=== PATIENT | male | born 1975 | race Caucasian/White ===

== ENCOUNTER 2019-05-09 15:37 | Outpatient (CLI) | payer OTHER, SELFPAY ==
--- NOTE | 2019-05-09 15:30 | CT_ITS ---
WS: [id number] CT CHEST WITH INTRAVENOUS CONTRAST HISTORY: hx lung cancer TECHNIQUE: Contiguous 5 mm axial imaging performed on the thorax. Coronal and sagittal reformats are submitted. All CT scans at [facility] use at least one of these dose optimization techniq ues: automated exposure control; mA and/or kV adjustment per patient size (includes targeted exams wh ere dose is matched to clinical indication); or iterative reconstruction. CONTRAST: Omnipaque 300; 95 mL IV. DLP: 933.06 mGycm COMPARISON: 01/02/2018 and 04/16/2015 Lungs and central airway: Partial lobectomy RIGHT lower lobe. Chronic postsurgical scarring and nodul es. There are several nodules at the RIGHT lung base which are all stable. The largest measures 8 mm. There are no new nodules. Pleura: Normal. No pleural effusion. Heart and pericardium: Normal size heart. No pericardial effusion. Mediastinum and merced: Small benign appearing mediastinal and subcarinal lymph nodes. No increase in s ize and number of the lymph nodes in the mediastinum. Vessels: Normal size aortic and pulmonary artery. No coronary artery calcifications. Chest wall and lower neck: No soft tissue masses. Upper abdomen: Negative. Osseous structures: Mild thoracic spondylitic changes. No osseous destruction. CT/CT chest w con* [id number] IMPRESSION: 1. Status post partial RIGHT lower lobectomy. 2. Stable nodules and postsurgical changes at the RIGHT lung base. No new or i ncreasing size of nodules. Stable since 04/16/2015. 3. No adenopathy.
--- NOTE | 2019-05-09 15:44 | XR_ITS ---
WS: [id number] CHEST 2 VIEWS HISTORY: hx lung cancer COMPARISON: 11/23/2017 Lungs: Postsurgical changes at the RIGHT lung base with volume loss and pleural thickening. Nodules s een on the recent CT are not as readily apparent radiographically. No mass or pneumonia. LEFT lung is clear. Cardiac size: Normal. Mediastinum/Aorta: Normal mediastinum. Bones: Severe degenerative changes at the RIGHT AC joint. XR/XR chest 2V* [id number] IMPRESSION: 1. Stable postoperative pleural thickening and volume loss at the RIGHT lung b ase. 2. No pneumonia. 3. Severe AC joint arthritis.
--- NOTE | 2019-05-09 15:44 | XR_ITS ---
WS: [id number] LEFT SHOULDER: 2 VIEW(S) TECHNIQUE: Internal and external rotation. HISTORY: shoulder pain COMPARISON: None available. No fracture or dislocation or soft tissue abnormality. Mild narrowing of the AC joint. Visualized LEFT upper lung is clear. XR/XR shoulder LT min 2V* [id number] IMPRESSION: Mild AC joint arthritis.
[2019-05-09] MEDS: iohexol 300 mg/mL 100 mL Btl IV (15:53)
== END 2019-05-09 15:38 | disposition home or self-care (01) ==
LOC: RADWPI 15:40
PROVIDERS: PCP Nurse Practitioner Family; Visit Provider Nurse Practitioner Family
DX: M25.512 Pain in left shoulder (principal); M19.012 Primary osteoarthritis, left shoulder; R06.00 Dyspnea, unspecified; R91.8 Other nonspecific abnormal finding of lung field; S46.912A Strain of unspecified muscle, fascia and tendon at shoulder and upper arm level, left arm, initial encounter; X58.XXXA Exposure to other specified factors, initial encounter; Z85.118 Personal history of other malignant neoplasm of bronchus and lung
CPT/HCPCS: 71046; 71260; 73030; Q9967

== ENCOUNTER 2019-06-11 10:22 | Outpatient (CLI) | payer OTHER, SELFPAY ==
--- NOTE | 2019-06-11 10:32 | MR_ITS ---
WS: [id number] MRI LEFT SHOULDER HISTORY: shoulder strain COMPARISON: LEFT shoulder radiograph 05/09/2019 TECHNIQUE: Multiplanar sequences of the shoulder joint are submitted. Moderate narrowing of the AC joint with a small amount of fluid along the joint space. Mild osteophyt e encroachment upon the supraspinatus muscle. There is a small amount of fluid surrounding the AC harpal nt capsule. Rotator cuff is intact. No rotator cuff tear is identified. No retraction of the tendons or muscle at rophy. There is a small curvilinear osteophyte from the distal acromion without contact on the supras pinatus during rest. There is a small amount of increased T2 signal on the proton density sequence at this level in the distal supraspinatus which may indicate some tendinopathy. Fluid in the subscapularis recess. Within this fluid are several loose bodies with the largest measur ing 5.3 mm. Increase fluid signal in the coracohumeral ligament. Biceps tendon remains in normal posi tion. There is some increased fluid along the rotator cuff interval. No fractures. Increase fluid in the biceps tendon sheath with small loose bodies. No labral tear appreciated. MR/MR shoulder LT wo con* [id number] IMPRESSION: 1. Mild AC joint arthritis with acute associated edema surrounding the AC join t. May be posttraumatic or inflammatory. 2. Biceps tendon tenosynovitis. Increase fluid in the biceps tendon sheath wit h small loose bodies. 3. Distention of the subscapularis bursa with loose bodies. 4. Mild sprain coracohumeral ligament. 5. No rotator cuff tear.
== END 2019-06-11 10:23 | disposition home or self-care (01) ==
LOC: RADWPI 10:26
PROVIDERS: PCP Nurse Practitioner Family; Visit Provider Nurse Practitioner Family
DX: S46.912A Strain of unspecified muscle, fascia and tendon at shoulder and upper arm level, left arm, initial encounter (principal); X58.XXXA Exposure to other specified factors, initial encounter; M65.812 Other synovitis and tenosynovitis, left shoulder
CPT/HCPCS: 73221

== ENCOUNTER 2019-07-01 09:47 | Emergency (ER) | payer OTHER, SELFPAY ==
[2019-07-01 10:22] VITALS: BMI 26.6
[2019-07-01 10:25] VITALS: BP 169/92; PULSE 78; RESP 16; TEMP 36.8; O2SAT 97
--- NOTE | 2019-07-01 10:44 | W.ED.GENADLT ---
HPI - General Adult General: Chief complaint: General Medical Stated complaint: HIGH BLOOD SUGAR Time Seen by Provider: 07/01/19 09:56 Source: patient Mode of arrival: ambulatory History of Present Illness: HPI narrative: Pt presents to ER with complaints of elevated BS. He checked his glucose on his friends glucometer and it was over 500. He has had increased thirst and voiding over the past 2 mos. Review of Systems General: Reports: 10 or more systems reviewed and unremarkable except in HPI and below Endo: Reports: excessive urination, excessive thirst, tired all the time and other (12 lbs of weight loss over past 2 mos) PFSH ED PFSH: Medical History Hx of cancer of lung Migraines Surgical History H/O neck surgery History of hip surgery History of lumbosacral spine surgery History of lung surgery History of repair of ACL Family History Grandmother Stroke Other Cancer Social History Smoking and tobacco status: former smoker Quit status (tobacco): has quit using tobacco Year quit tobacco: 2011 - 1PPD x 6 Years Alcohol intake: never Lives independently: Yes Household members: spouse and children Current occupational status: employed History of recent travel: No Current gender identity: Male Physical Exam Const: COMMON NORMALS: no apparent distress, oriented x3, no limitations and alert GENERAL APPEARANCE: cooperative and comfortable ORIENTATION/CONSCIOUSNESS: Yes awake, Yes oriented to person, Yes oriented to place and Yes oriented to time HENMT: COMMON NORMALS: normocephalic, head/scalp atraumatic, external ears normal, EAC's normal, TM's normal bilaterally and external nose normal HEAD & SCALP: normal to inspection, normocephalic and atraumatic FACE & SINUS: normal facial exam, sinuses nontender and face symmetric NOSE: external nose normal, nares normal and no nasal discharge EXTERNAL EAR: Yes external ears normal EXTERNAL AUDITORY CANAL: EAC's normal TYMPANIC MEMBRANE: TM's normal bilaterally MOUTH: oral and palatal mucosa normal, lip normal and tongue normal THROAT: posterior oropharynx normal, tonsils normal and uvula midline Eye: COMMON NORMALS: PERRL, EOMs intact bilaterally and conjunctivae normal GENERAL EYE: normal appearance of both eyes and normal light reflex EYELID: eyelids normal CONJUNCTIVA: Yes conjunctivae normal PUPIL: Yes PERRL EOM: Yes EOM abnormal DIRECT OPHTHALMOSCOPY: Yes normal light reflex Neck/C-Spine: COMMON NORMALS: full ROM, no lymphadenopathy, supple, no meningeal signs, no JVD and thyroid normal GENERAL: Yes normal visual inspection THYROID: thyroid normal CERVICAL SPINE: Yes cervical ROM normal and Yes normal cervical lordosis Lymph: LYMPHATIC: no lymphadenopathy noted Chest: COMMONS NORMALS: inspection of chest normal and palpation of chest normal Resp: COMMON NORMALS: normal respiratory effort, no retractions and clear to auscultation bilaterally AUSCULTATION: clear to auscultation bilaterally Cardio: COMMON NORMALS: no JVD, regular rate, regular rhythm, S1 normal heart sound, S2 normal heart sound, no gallops, no clicks, no murmurs, no rub and peripheral pulses 2+ throughout RATE: regular rate RHYTHM: regular rhythm HEART SOUNDS: S1 normal and S2 normal PERIPHERAL PULSES: pulses 2+ throughout GI: COMMON NORMALS: normal to inspection, nondistended, normoactive bowel sounds, soft to palpation, non-tender and no masses PALPATION: Yes soft : COMMON NORMALS: Yes no CVA tenderness BLADDER/KIDNEY EXAM: Yes no CVA tenderness Back/Pelvis: COMMON NORMALS: no CVA tenderness, thoracic and lumbar spine normal to inspection, no thoracic nor lumbar tenderness and thoraco-lumbar ROM normal Extremity: COMMON NORMALS: normal to inspection, full ROM, normal capillary refill, no joint enlargement, no clubbing, cyanosis or edema, no calf tenderness and no pedal edema GENERAL: Yes normal exam except as noted Neuro: COMMON NORMALS: oriented x3, moves all extremities, no focal motor deficits, no sensory deficits noted and gait normal SENSORIUM/ORIENTATION: Yes alert, Yes oriented to person, Yes oriented to place and Yes oriented to time MENINGEAL SIGNS: Yes no meningeal signs Psych: COMMON NORMALS: mental status grossly normal, thought process normal, cooperative, affect normal, speech normal and activity/motor behavior normal SPEECH: Yes normal speech THOUGHT PROCESS: normal thought process Skin: COMMON NORMALS: no rashes or lesions noted, no wounds and skin turgor normal GENERAL SKIN EXAM: no rashes or lesions noted and turgor normal Course ED course: Pt presents with complaints of excessive thirst, voiding, and 12 lb wt loss over the past 2 mos. Labs ordered Reevaluation(s): Reevaluation #1: Glucose 408mg/dl. Insulin and fluids ordered. Pt denies NV and carbon dioxide is negative as well as signs of DKA. Fluids given and IV insulin. Will consult pcp before DC Time: 12:32 Consultations: Consultation #1: Spoke with Siomara Brower NP pt pcp and will proceed with DC with metformin script and follow up with solar sales consultant and office visit once IV bolus administered. Time: 12:33 Vital Signs: Vital signs: Vital Signs Temperature 98.3 F 07/01/19 10:25 Pulse Rate 78 07/01/19 10:25 Respiratory Rate 16 07/01/19 10:25 Blood Pressure 169/92 07/01/19 10:25 Pulse Oximetry 97 07/01/19 10:25 MDM - General Adult Lab Data: Labs: Lab Results 07/01/19 07/01/19 07/01/19 Range/Units 11:07 11:07 11:07 WBC 4.4 (4.0-10.0) 10^3/ uL RBC 4.98 (4.1-5.3) 10^6/u L Hgb 14.9 (11.7-16.6) g/dL Hct 43.7 (42.0-52.0) % MCV 87.8 (80-94) fL MCH 29.9 (28.0-34.0) pg MCHC 34.1 (30.0-36.0) g/dL RDW 11.5 L (12.1-15.1) % Plt Count 244 (130-400) 10^3/c mm MPV 10.4 (7.4-10.4) fL Neut % (Auto) 54.7 % Lymph % (Auto) 34.7 % [place] % (Auto) 5.5 % Eos % (Auto) 1.8 % Baso % (Auto) 2.8 % Neut # (Auto) 2.4 (1.8-7.7) 10^3/u L Lymph # (Auto) 1.5 (0.8-4.8) 10^3/u L [place] # (Auto) 0.2 (0.2-0.9) 10^3/u L Eos # (Auto) 0.1 (0.0-0.8) 10^3/u L Baso # (Auto) 0.1 (0.0-0.1) 10^3/u L Nucleated RBC % (a uto) 0 % Nucleated RBCs # 0.0 /100WBC Sodium 134 L (136-145) mmol/L Potassium 4.0 (3.5-5.1) mmol/L Chloride 93 L (98-107) mmol/L Carbon Dioxide 25 (22-29) mmol/L Anion Gap 20.0 H (5-19) BUN 13 (6-20) mg/dL Creatinine 0.9 (0.7-1.2) mg/dL GFR Calculation 92.5 (90-130) mL/min Glucose 408 H (65-115) mg/dL Estimat Average Gl ucose 404 Hemoglobin A1c 15.7 H (4.0-6.0) % Calculated Osmolal ity 291 (285-295) mOsm/k g Calcium 9.3 (8.5-10.5) mg/dL Total Bilirubin 0.3 (0.15-1.2) mg/dL AST 16 (0-40) U/L ALT 33 (0-41) U/L Alkaline Phosphata se 95 (40-130) IU/L Total Protein 7.3 (6.6-8.7) g/dL Albumin 4.5 (3.5-5.2) g/dL Globulin 2.8 (1.3-4.6) g/dL TSH 1.06 (0.27-4.20) uIU/ mL Free T4 1.22 (0.82-1.77) ng/d L Free T3 2.8 (2.0-4.4) PG/ML Urine Color (Yellow) Urine Appearance (CLEAR) Urine pH (5-7) Ur Specific Gravit y (1.005-1.030) Urine Protein (Negative) Urine Glucose (UA) (Normal) Urine Ketones (Negative) Urine Blood (Negative) Urine Nitrate (Negative) Urine Bilirubin (NEGATIVE) Urine Urobilinogen (Negative) mg/dL Ur Leukocyte Sammi ase (Negative) 07/01/19 Range/Units 11:15 WBC (4.0-10.0) 10^3/ uL RBC (4.1-5.3) 10^6/u L Hgb (11.7-16.6) g/dL Hct (42.0-52.0) % MCV (80-94) fL MCH (28.0-34.0) pg MCHC (30.0-36.0) g/dL RDW (12.1-15.1) % Plt Count (130-400) 10^3/c mm MPV (7.4-10.4) fL Neut % (Auto) % Lymph % (Auto) % [place] % (Auto) % Eos % (Auto) % Baso % (Auto) % Neut # (Auto) (1.8-7.7) 10^3/u L Lymph # (Auto) (0.8-4.8) 10^3/u L [place] # (Auto) (0.2-0.9) 10^3/u L Eos # (Auto) (0.0-0.8) 10^3/u L Baso # (Auto) (0.0-0.1) 10^3/u L Nucleated RBC % (a uto) % Nucleated RBCs # /100WBC Sodium (136-145) mmol/L Potassium (3.5-5.1) mmol/L Chloride (98-107) mmol/L Carbon Dioxide (22-29) mmol/L Anion Gap (5-19) BUN (6-20) mg/dL Creatinine (0.7-1.2) mg/dL GFR Calculation (90-130) mL/min Glucose (65-115) mg/dL Estimat Average Gl ucose Hemoglobin A1c (4.0-6.0) % Calculated Osmolal ity (285-295) mOsm/k g Calcium (8.5-10.5) mg/dL Total Bilirubin (0.15-1.2) mg/dL AST (0-40) U/L ALT (0-41) U/L Alkaline Phosphata se (40-130) IU/L Total Protein (6.6-8.7) g/dL Albumin (3.5-5.2) g/dL Globulin (1.3-4.6) g/dL TSH (0.27-4.20) uIU/ mL Free T4 (0.82-1.77) ng/d L Free T3 (2.0-4.4) PG/ML Urine Color Straw (Yellow) Urine Appearance Clear (CLEAR) Urine pH 5 (5-7) Ur Specific Gravit y 1.010 (1.005-1.030) Urine Protein Neg (Negative) Urine Glucose (UA) 4+ H (Normal) Urine Ketones 1+ H (Negative) Urine Blood Neg (Negative) Urine Nitrate Negative (Negative) Urine Bilirubin Neg (NEGATIVE) Urine Urobilinogen Norm (Negative) mg/dL Ur Leukocyte Sammi ase Negative (Negative) Discharge Plan Discharge Patient Disposition: Home, Self-Care Clinical Impression: Diabetes Condition: Stable Prescriptions: New metformin 500 mg tablet 500 mg PO DAILY Qty: 30 RF: 0 No Action sumatriptan succinate [Imitrex] 100 mg tablet See Rx Instructions PO .COMPLEX Qty: 10 RF: 1 Referrals: Siomara Brower FNP [Primary Care Provider] - Discharge Diet: Diabetic Discharge Activity: Increase activity as tolerated Activity Restrictions/Additional Instructions: Follow up with Siomara Brower next week for follow up without fail. Telecommunications Technician follow up and diabetes management support. Stand Alone Forms: Work/School Release Coding Level of Care Code ED Design Inserter for Anitha Smith
[2019-07-01 11:14] LABS: Basophils # 0.1 10^3/uL (0.0-0.1); Basophils % 2.8 %; Eosinophils # 0.1 10^3/uL (0.0-0.8); Eosinophils % 1.8 %; Hematocrit 43.7 % (42.0-52.0); Hemoglobin 14.9 g/dL (11.7-16.6); Lymphocytes # 1.5 10^3/uL (0.8-4.8); Lymphocytes % 34.7 %; Mean Corpuscular HGB Conc 34.1 g/dL (30.0-36.0); Mean Corpuscular Hemoglobin 29.9 pg (28.0-34.0); Mean Corpuscular Volume 87.8 fL (80-94); Mean Platelet Volume 10.4 fL (7.4-10.4); Monocytes # 0.2 10^3/uL (0.2-0.9); Monocytes % 5.5 %; Neutrophils # 2.4 10^3/uL (1.8-7.7); Neutrophils % 54.7 %; Nucleated Red Blood Cells % 0 %; Platelet Count 244 10^3/cmm (130-400); Red Blood Count 4.98 10^6/uL (4.1-5.3); Red Cell Distribution Width 11.5 % (12.1-15.1); White Blood Count 4.4 10^3/uL (4.0-10.0)
[2019-07-01 11:42] LABS: Alanine Aminotransferase 33 U/L (0-41); Albumin Level 4.5 g/dL (3.5-5.2); Alkaline Phosphatase 95 IU/L (40-130); Aspartate Amino Transferase 16 U/L (0-40); Blood Urea Nitrogen 13 mg/dL (6-20); Calcium 9.3 mg/dL (8.5-10.5); Carbon Dioxide 25 mmol/L (22-29); Chloride 93 mmol/L (98-107); Globulin 2.8 g/dL (1.3-4.6); Glomerular Filtration Rate 92.5 mL/min (90-130); Glucose 408 mg/dL (65-115); Osmolality Calculated 291 mOsm/kg (285-295); Sodium 134 mmol/L (136-145); Thyroid Stimulating Hormone 1.06 uIU/mL (0.27-4.20); Total Bilirubin 0.3 mg/dL (0.15-1.2); Total Protein 7.3 g/dL (6.6-8.7)
[2019-07-01 11:47] LABS: Add Urine Microscopic? NO
[2019-07-01 11:52] LABS: Blood Urine Neg (Negative); Glucose Urine UA 4+ (Normal); Ketones Urine 1+ (Negative); Protein Urine Neg (Negative); Urine Appearance Clear (CLEAR); Urine Color Straw (Yellow); pH Urine 5 (5-7)
[2019-07-01 11:53] LABS: Bilirubin Urine Neg (NEGATIVE); Leukocyte Esterase Urine Negative (Negative); Nitrate Urine Negative (Negative); Urobilinogen Urine Norm (Negative)
[2019-07-01 12:21] LABS: Estmated Average Glucose 404; Hemoglobin A1C 15.7 % (4.0-6.0)
[2019-07-01 12:28] LABS: Free T4 Free Thyroxine 1.22 ng/dL (0.82-1.77); T3 Free 2.8 PG/ML (2.0-4.4)
[2019-07-01] MEDS: sodium chloride 0.9% 1,000 ML 999 ML IV (12:37)
[2019-07-01] MEDS: insulin regular-human 100 units/1 mL 5 UNIT IVP (12:38)
[2019-07-01 13:40] LABS: Glucose Point of Care 264 mg/dL (70-110)
--- NOTE | 2019-07-01 14:26 | ED_ITS ---
HPI - General Adult General: Chief complaint: General Medical Stated complaint: HIGH BLOOD SUGAR Time Seen by Provider: 07/01/19 09:56 Source: patient Mode of arrival: ambulatory Review of Systems General: Reports: 10 or more systems reviewed and unremarkable except in HPI and below : Reports: urinary frequency Endo: Reports: excessive urination, excessive thirst and tired all the time PFSH ED PFSH: Medical History Hx of cancer of lung Migraines Surgical History H/O neck surgery History of hip surgery History of lumbosacral spine surgery History of lung surgery History of repair of ACL Family History Grandmother Stroke Other Cancer Social History Smoking and tobacco status: former smoker Quit status (tobacco): has quit using tobacco Year quit tobacco: 2011 1PPD x 6 Years Alcohol intake: never Lives independently: Yes Household members: spouse and children Current occupational status: employed History of recent travel: No Current gender identity: Male Physical Exam Const: COMMON NORMALS: no apparent distress, oriented x3, no limitations and alert GENERAL APPEARANCE: cooperative and comfortable ORIENTATION/CONSCIOUSNESS: Yes awake, Yes oriented to person, Yes oriented to place and Yes oriented to time HENMT: COMMON NORMALS: normocephalic, head/scalp atraumatic, external ears normal, EAC's normal, TM's normal bilaterally and external nose normal HEAD & SCALP: normal to inspection, normocephalic and atraumatic FACE & SINUS: normal facial exam, sinuses nontender and face symmetric NOSE: external nose normal, nares normal and no nasal discharge EXTERNAL EAR: Yes external ears normal EXTERNAL AUDITORY CANAL: EAC's normal TYMPANIC MEMBRANE: TM's normal bilaterally MOUTH: oral and palatal mucosa normal, lip normal and tongue normal THROAT: posterior oropharynx normal, tonsils normal and uvula midline Eye: COMMON NORMALS: PERRL, EOMs intact bilaterally and conjunctivae normal GENERAL EYE: normal appearance of both eyes and normal light reflex EYELID: eyelids normal CONJUNCTIVA: Yes conjunctivae normal PUPIL: Yes PERRL EOM: Yes EOM abnormal DIRECT OPHTHALMOSCOPY: Yes normal light reflex Neck/C-Spine: COMMON NORMALS: full ROM, no lymphadenopathy, supple, no meningeal signs, no JVD and thyroid normal GENERAL: Yes normal visual inspection THYROID: thyroid normal CERVICAL SPINE: Yes cervical ROM normal and Yes normal cervical lordosis Lymph: LYMPHATIC: no lymphadenopathy noted Chest: COMMONS NORMALS: inspection of chest normal and palpation of chest normal Resp: COMMON NORMALS: normal respiratory effort, no retractions and clear to auscultation bilaterally AUSCULTATION: clear to auscultation bilaterally Cardio: COMMON NORMALS: no JVD, regular rate, regular rhythm, S1 normal heart sound, S2 normal heart sound, no gallops, no clicks, no murmurs, no rub and peripheral pulses 2+ throughout RATE: regular rate RHYTHM: regular rhythm HEART SOUNDS: S1 normal and S2 normal PERIPHERAL PULSES: pulses 2+ throughout GI: COMMON NORMALS: normal to inspection, nondistended, normoactive bowel s ounds, soft to palpation, non-tender and no masses PALPATION: Yes soft : COMMON NORMALS: Yes no CVA tenderness BLADDER/KIDNEY EXAM: Yes no CVA tenderness Back/Pelvis: COMMON NORMALS: no CVA tenderness, thoracic and lumbar spine normal to inspection, no thoracic nor lumbar tenderness and thoraco-lumbar ROM normal Extremity: COMMON NORMALS: normal to inspection, full ROM, normal capillary refill, no joint enlargement, no clubbing, cyanosis or edema, no calf tenderness and no pedal edema GENERAL: Yes normal exam except as noted Neuro: COMMON NORMALS: oriented x3, moves all extremities, no focal motor deficits, no sensory deficits noted and gait normal SENSORIUM/ORIENTATION: Yes alert, Yes oriented to person, Yes oriented to place and Yes oriented to time MENINGEAL SIGNS: Yes no meningeal signs Psych: COMMON NORMALS: mental status grossly normal, thought process normal, cooperative, affect normal, speech normal and activity/motor behavior normal SPEECH: Yes normal speech THOUGHT PROCESS: normal thought process Skin: COMMON NORMALS: no rashes or lesions noted, no wounds and skin turgor normal GENERAL SKIN EXAM: no rashes or lesions noted and turgor normal Course Vital Signs: Vital signs: Vital Signs Temperature 98.3 F 07/01/19 10:25 Pulse Rate 78 07/01/19 10:25 Respiratory Rate 16 07/01/19 10:25 Blood Pressure 169/92 07/01/19 10:25 Pulse Oximetry 97 07/01/19 10:25 [facility] - General Adult Lab Data: Labs: Lab Results 07/01/19 07/01/19 07/01/19 Range/Units 11:07 11:07 11:07 WBC 4.4 (4.0-10.0) 10^3/ uL RBC 4.98 (4.1-5.3) 10^6/u L Hgb 14.9 (11.7-16.6) g/dL Hct 43.7 (42.0-52.0) % MCV 87.8 (80-94) fL MCH 29.9 (28.0-34.0) pg MCHC 34.1 (30.0-36.0) g/dL RDW 11.5 L (12.1-15.1) % Plt Count 244 (130-400) 10^3/c mm MPV 10.4 (7.4-10.4) fL Neut % (Auto) 54.7 % Lymph % (Auto) 34.7 % [place] % (Auto) 5.5 % Eos % (Auto) 1.8 % Baso % (Auto) 2.8 % Neut # (Auto) 2.4 (1.8-7.7) 10^3/u L Lymph # (Auto) 1.5 (0.8-4.8) 10^3/u L [place] # (Auto) 0.2 (0.2-0.9) 10^3/u L Eos # (Auto) 0.1 (0.0-0.8) 10^3/u L Baso # (Auto) 0.1 (0.0-0.1) 10^3/u L Nucleated RBC % (a uto) 0 % Nucleated RBCs # 0.0 /100WBC Sodium 134 L (136-145) mmol/L Potassium 4.0 (3.5-5.1) mmol/L Chloride 93 L (98-107) mmol/L Carbon Dioxide 25 (22-29) mmol/L Anion Gap 20.0 H (5-19) BUN 13 (6-20) mg/dL Creatinine 0.9 (0.7-1.2) mg/dL GFR Calculation 92.5 (90-130) mL/min Glucose 408 H (65-115) mg/dL POC Glucose (70-110) mg/dL Estimat Average Gl ucose 404 Hemoglobin A1c 15.7 H (4.0-6.0) % Calculated Osmolal ity 291 (285-295) mOsm/k g Calcium 9.3 (8.5-10.5) mg/dL Total Bilirubin 0.3 (0.15-1.2) mg/dL AST 16 (0-40) U/L ALT 33 (0-41) U/L Alkaline Phosphata se 95 (40-130) IU/L Total Protein 7.3 (6.6-8.7) g/dL Albumin 4.5 (3.5-5.2) g/dL Globulin 2.8 (1.3-4.6) g/dL TSH 1.06 (0.27-4.20) uIU/ mL Free T4 1.22 (0.82-1.77) ng/d L Free T3 2.8 (2.0-4.4) PG/ML Urine Color (Yellow) Urine Appearance (CLEAR) Urine pH (5-7) Ur Specific Gravit y (1.005-1.030) Urine Protein (Negative) Urine Glucose (UA) (Normal) Urine Ketones (Negative) Urine Blood (Negative) Urine Nitrate (Negative) Urine Bilirubin (NEGATIVE) Urine Urobilinogen (Negative) mg/dL Ur Leukocyte Sammi ase (Negative) 07/01/19 07/01/19 Range/Units 11:15 13:37 WBC (4.0-10.0) 10^3/ uL RBC (4.1-5.3) 10^6/u L Hgb (11.7-16.6) g/dL Hct (42.0-52.0) % MCV (80-94) fL MCH (28.0-34.0) pg MCHC (30.0-36.0) g/dL RDW (12.1-15.1) % Plt Count (130-400) 10^3/c mm MPV (7.4-10.4) fL Neut % (Auto) % Lymph % (Auto) % [place] % (Auto) % Eos % (Auto) % Baso % (Auto) % Neut # (Auto) (1.8-7.7) 10^3/u L Lymph # (Auto) (0.8-4.8) 10^3/u L [place] # (Auto) (0.2-0.9) 10^3/u L Eos # (Auto) (0.0-0.8) 10^3/u L Baso # (Auto) (0.0-0.1) 10^3/u L Nucleated RBC % (a uto) % Nucleated RBCs # /100WBC Sodium (136-145) mmol/L Potassium (3.5-5.1) mmol/L Chloride (98-107) mmol/L Carbon Dioxide (22-29) mmol/L Anion Gap (5-19) BUN (6-20) mg/dL Creatinine (0.7-1.2) mg/dL GFR Calculation (90-130) mL/min Glucose (65-115) mg/dL POC Glucose 264 (70-110) mg/dL Estimat Average Gl ucose Hemoglobin A1c (4.0-6.0) % Calculated Osmolal ity (285-295) mOsm/k g Calcium (8.5-10.5) mg/dL Total Bilirubin (0.15-1.2) mg/dL AST (0-40) U/L ALT (0-41) U/L Alkaline Phosphata se (40-130) IU/L Total Protein (6.6-8.7) g/dL Albumin (3.5-5.2) g/dL Globulin (1.3-4.6) g/dL TSH (0.27-4.20) uIU/ mL Free T4 (0.82-1.77) ng/d L Free T3 (2.0-4.4) PG/ML Urine Color Straw (Yellow) Urine Appearance Clear (CLEAR) Urine pH 5 (5-7) Ur Specific Gravit y 1.010 (1.005-1.030) Urine Protein Neg (Negative) Urine Glucose (UA) 4+ H (Normal) Urine Ketones 1+ H (Negative) Urine Blood Neg (Negative) Urine Nitrate Negative (Negative) Urine Bilirubin Neg (NEGATIVE) Urine Urobilinogen Norm (Negative) mg/dL Ur Leukocyte Sammi ase Negative (Negative) Discharge Plan Discharge Patient Disposition: Home, Self-Care Clinical Impression: Diabetes Condition: Stable Prescriptions: New metformin 500 mg tablet 500 mg PO DAILY Qty: 30 RF: 0 No Action sumatriptan succinate [Imitrex] 100 mg tablet See Rx Instructions PO .COMPLEX Qty: 10 RF: 1 Referrals: Siomara Brower FNP [Primary Care Provider] - Discharge Diet: Diabetic Discharge Activity: Increase activity as tolerated Activity Restrictions/Additional Instructions: Follow up with Siomara Brower next week for follow up without fail. Technical Solutions Consultant follow up and diabetes management support. Stand Alone Forms: Work/School Release Coding Level of Care Code ED Cardiac Care Nurse for [facility] Sarah
[2019-07-01 14:29] VITALS: BP 145/78; PULSE 82; RESP 16; TEMP 36.9; O2SAT 96
== END 2019-07-01 14:17 | disposition home or self-care (01) ==
PROVIDERS: Emergency Provider Nurse Practitioner Family; PCP Nurse Practitioner Family
DX: E11.9 Type 2 diabetes mellitus without complications (principal); Z85.118 Personal history of other malignant neoplasm of bronchus and lung; Z87.891 Personal history of nicotine dependence
CPT/HCPCS: 12345; 36415; 36416; 80053; 81003; 82962; 83036; 84439; 84443; 84481; 85025; 96361; 96374; 96375; 99283; 99284; J1815; J7030

== ENCOUNTER → 2019-10-29 16:53 | Outpatient (BNVA) | payer OTHER, SELFPAY | PROVIDERS: PCP Nurse Practitioner Family; Visit Provider Nurse Practitioner Family | DX: E11.9 Type 2 diabetes mellitus without complications (principal) | CPT/HCPCS: 82043; 83036 ==

== ENCOUNTER 2019-12-02 18:57 | Emergency (ER) | payer OTHER, SELFPAY ==
--- NOTE | 2019-12-02 18:58 | XRR_ITS ---
PROCEDURE INFORMATION: Exam: XR Left Wrist Exam date and time: 12/02/2019 7:28 PM Age: 44 years old Clinical indication: Injury or trauma; Other: Hit with softball; Blunt trauma (contusions or hematomas); Wrist; Left TECHNIQUE: Imaging protocol: XR Left wrist. Views: 3 or more views. COMPARISON: No relevant prior studies available. FINDINGS: Bones/joints: There is no evidence of fracture or dislocation. Scapholunate distance is 4 mm which is the upper limits of normal. Findings could represent mild scapholunate dissociation. Correlation with clinical findings is suggested. Soft tissues: There is a small metallic foreign body in the region of the thenar eminence, probably not related to the present injury. XR/XR wrist LT min 3V* [id number] IMPRESSION: 1. No fracture is identified. 2. Question of widened scapholunate space
[2019-12-02 19:20] VITALS: BP 133/70; PULSE 103; RESP 14; TEMP 36.5; O2SAT 97; BMI 26.6
--- NOTE | 2019-12-02 19:33 | XRR_ITS ---
PROCEDURE INFORMATION: Exam: XR Left Hand Exam date and time: 12/02/2019 7:57 PM Age: 44 years old Clinical indication: Pain and injury or trauma; Other: Hit in hand with softball; Blunt trauma (contusions or hematomas); Left; Additional info: Injury/pain TECHNIQUE: Imaging protocol: XR Left hand. Views: 3 or more views. COMPARISON: CR XR wrist LT min 3V* [id number] 12/02/2019 7:17 PM FINDINGS: Bones/joints: No gross evidence for acute bony injury in the visualized left hand, although evaluation is somewhat limited by flexion deformities. Widening of the scapholunate joint, which was also present on the prior study. Soft tissues: 1 mm metallic soft tissue foreign body overlying the proximal aspect of the 3rd metacarpal on the AP view, which was also present on the prior study. XR/XR hand LT min 3V* [id number] IMPRESSION: No gross evidence for acute bony injury in the visualized left hand, although evaluation is somewhat limited by flexion deformities.
[2019-12-02 19:36] VITALS: BP 150/75; PULSE 89; RESP 16; O2SAT 96
[2019-12-02 20:06] VITALS: RESP 16; O2SAT 98
[2019-12-02] MEDS: oxyCODONE-APAP 5-325 mg Tablet 1 TAB PO (20:06)
--- NOTE | 2019-12-02 20:10 | W.ED.EXTPRO ---
HPI - Extremity Problem General: Chief complaint: Extremity Injury, Upper Stated complaint: left wrist injury/hit with softball Time Seen by Provider: 12/02/19 19:25 Source: patient Mode of arrival: ambulatory Limitations: no limitations History of Present Illness: HPI Narrative: Just prior to arrival Mr. Morales is playing softball when he got hit with a softball in his left hand. He states that the softball hit him right at the junction of the hand and wrist on the pinky side of his hand. He is complaining of pain in the hyperthenar eminence and wrist. He denies any other injuries or areas of pain. He complains of paresthesias to his pinky finger and pain with range of motion of his pinky and ring finger. He is not taking anything for this prior to arrival and again he denies any other injuries. Associated symptoms: Deny chest pain, fever(s) or rash Review of Systems Const: Denies: fever(s), chills, body aches, fatigue, malaise or diaphoresis Eyes: Denies: change in vision, blurry vision, photophobia, eye discomfort, eye discharge, eye redness or yellow eyes ENMT: Denies: throat pain, odynophagia, hoarseness, swelling of lips/tongue, ear or mastoid pain, ear discharge, change in hearing or nasal discharge Card: Denies: chest pain, palpitations, irregular heart rhythm, edema, lightheadedness, syncope, pre-syncope, dyspnea on exertion or orthopnea Resp: Denies: dyspnea, productive cough, non-productive cough, wheezing, hemoptysis or chest congestion GI: Denies: abdominal pain, nausea, vomiting, hematemesis, coffee ground emesis, heartburn, diarrhea, constipation, GI cramping, hematochezia or melena : Denies: flank pain, dysuria, urinary frequency, urinary urgency or hematuria Musc: Reports: extremity pain and joint pain; Denies: neck pain, back pain, joint swelling, joint redness, joint warmth or joint stiffness Skin/Breast: Denies: rash, pruritus, erythema, skin pain or skin tenderness Neuro: Denies: headache(s), numbness in extremities, weakness in extremities, sensory changes, lack of coordination, difficulty walking, dizziness, vertigo, confusion, Slurred speech present or seizure-like activity Tacho/Lymph: Denies: easy bruising, easy bleeding, petechiae, purpura or enlarged lymph nodes All/Imm: Denies: urticaria, throat swelling, tongue swelling, facial swelling or acute wheezing PFSH ED PFSH: Medical History Hx of cancer of lung Migraines Type 2 diabetes mellitus without complication Surgical History H/O neck surgery History of hip surgery History of lumbosacral spine surgery History of lung surgery History of repair of ACL Family History Grandmother Stroke Other Cancer Social History Smoking and tobacco status: former smoker Quit status (tobacco): has quit using tobacco Year quit tobacco: 2011 1PPD x 6 Years Alcohol intake: never Lives independently: Yes Household members: spouse and children Current occupational status: employed History of recent travel: No Current gender identity: Male Physical Exam Const: COMMON NORMALS: no acute distress, patient oriented x3, no limitations and alert GENERAL APPEARANCE: cooperative HENMT: COMMON NORMALS: normocephalic, atraumatic, external ears normal, EAC's normal and Normal external nose present HEAD & SCALP: normal to inspection, normocephalic and atraumatic FACE & SINUS: normal facial exam and face symmetric NOSE: Normal external nose present and Normal nares present EXTERNAL EAR: Yes external ears normal EXTERNAL AUDITORY CANAL: EAC's normal MOUTH: Normal oral and palatal mucosa present, lip normal and tongue normal Eye: COMMON NORMALS: Equal, round and reactive pupils present and conjunctivae normal GENERAL EYE: appearance normal, both eyes and all related structures ALIGNMENT: Yes alignment normal PERIORBITAL: periorbital findings normal EYELID: eyelids normal CONJUNCTIVA: Yes conjunctivae normal SCLERA: sclerae normal PUPIL: Yes Equal, round and reactive pupils present Neck/C-Spine: COMMON NORMALS: full ROM, no lymphadenopathy, supple, no meningeal signs and no JVD GENERAL: Yes normal visual inspection and Yes trachea midline Chest: COMMONS NORMALS: normal inspection of the chest and normal palpation of entire chest wall Resp: COMMON NORMALS: normal respiratory effort, No retractions, No use of accessory muscles and clear to auscultation bilaterally EFFORT & INSPECTION: Yes able to speak in complete sentences and Yes symmetric chest movement AUSCULTATION: clear to auscultation bilaterally, no crackles, no rales, no rhonchi and no wheezes Cardio: COMMON NORMALS: no JVD, regular rate, regular rhythm, S1 normal heart sound present and S2 normal heart sound present RATE: regular rate RHYTHM: regular rhythm HEART SOUNDS: S1 normal heart sound present, S2 normal heart sound present, no click, no gallops, no murmurs and no rubs GI: COMMON NORMALS: Soft to palpation and No hepatosplenomegaly present PALPATION: Yes Soft to palpation, No Tenderness to palpation present (GI), No Guarding due to palpation present (GI), No Rigid due to palpation, Yes No hepatosplenomegaly present, No Hernia present, No Palpable mass present and No Pulsatile mass present : COMMON NORMALS: Yes no CVA tenderness BLADDER/KIDNEY EXAM: Yes no CVA tenderness Back/Pelvis: COMMON NORMALS: no CVA tenderness, thoracic and lumbar spine normal to inspection, no thoracic nor lumbar tenderness and thoraco-lumbar ROM normal Extremity: COMMON NORMALS: capillary refill normal and no joint enlargement NARRATIVE EXTREMITY EXAM: Left hand with tenderness to palpation over the hyperthenar eminence and medial wrist. Patient has a strong pulse with normal light capillary refill to the medial portion of the hand as well as the lateral hand. There is pain with range of motion of the pinky and ring finger. Sensation is intact to light touch. Range of motion is limited by pain. There are no abrasions, puncture wounds or open lacerations seen. The remainder of the patient's musculoskeletal exam is unremarkable and normal. Neuro: COMMON NORMALS: patient oriented x3, CN's II-XII intact bilaterally, moves all extremities, no focal motor deficits and no sensory deficits noted SENSORIUM/ORIENTATION: Yes alert MENINGEAL SIGNS: Yes no meningeal signs SPEECH: speech normal Psych: COMMON NORMALS: mental status grossly normal, Normal thought process present, cooperative, normal affect, speech normal and activity/motor behavior normal SPEECH: Yes normal speech THOUGHT PROCESS: Normal thought process present Skin: COMMON NORMALS: no rashes or lesions noted, turgor normal, no jaundice, no petechiae and no mottling GENERAL SKIN EXAM: no rashes or lesions noted and turgor normal Course ED course: 2041 -patient neurovascularly intact after splinting. Vital Signs: Vital signs: Vital Signs Temperature 97.7 F 12/02/19 19:20 Pulse Rate 89 12/02/19 19:36 Respiratory Rate 16 12/02/19 20:06 Blood Pressure 150/75 12/02/19 19:36 Pulse Oximetry 98 12/02/19 20:06 MDM - Extremity (Nontraumatic) MDM Narrative: Medical decision making narrative: Case reviewed with Dr. Bacon. He agrees to place the patient in a splint and have him follow-up with him in the office. He states he may need an MRI within the next 2 weeks to evaluate for ligamentous injury. At this time he agrees to protect the hand with a splint. The patient can follow-up in his office for recheck. This time the patient is neurovascularly intact. He has a tingling sensation in his pinky this does suggest somewhat of a neuropraxia. There is no definitive ulnar nerve dysfunction. Patient's motion is intact but limited by pain. His x-ray did show a metallic foreign body present in the hand but he has no puncture wounds or lacerations. Patient states that he believes this may be from an old hand injury. Patient is stable for discharge and will have him follow-up with orthopedics. Imaging Data^: XR Left Wrist: Attestation: I personally reviewed and interpreted this imaging study as follows: My impression: No definitive fractures but questionable widened scapholunate spacing. We will have [facility] over read Radiologist's impression: [address] [address] XRay Report Signed Patient: Louie Fisher Unit #: [id number] : 1975 Age/Sex: 44 / M ADM Date: 12/02/19 Loc: ER Room/Bed: Attending Dr: Ordering Provider/Ordering MD: Jean Freedman MD Date of Service: 12/02/19 Procedure(s): XR wrist LT min 3V* 13513 Accession Number(s): [id number] Report Number: [id number] PROCEDURE INFORMATION: Exam: XR Left Wrist Exam date and time: 12/02/2019 7:28 PM Age: 44 years old Clinical indication: Injury or trauma; Other: Hit with softball; Blunt trauma (contusions or hematomas); Wrist; Left TECHNIQUE: Imaging protocol: XR Left wrist. Views: 3 or more views. COMPARISON: No relevant prior studies available. FINDINGS: Bones/joints: There is no evidence of fracture or dislocation. Scapholunate distance is 4 mm which is the upper limits of normal. Findings could represent mild scapholunate dissociation. Correlation with clinical findings is suggested. Soft tissues: There is a small metallic foreign body in the region of the thenar eminence, probably not related to the present injury. XR/XR wrist LT min 3V* [id number] IMPRESSION: 1. No fracture is identified. 2. Question of widened scapholunate space Dictated By: Wenceslao Nance Signed By: Wenceslao Nance Signed Date/Time: 12/02/192003 DD/ 03 XR Left Hand: Attestation: I personally reviewed and interpreted this imaging study as follows: My impression: No acute fractures or dislocations. Discharge Plan Discharge Patient Disposition: Home Clinical Impression: Wrist contusion Qualifiers: Encounter type: initial encounter Laterality: left Qualified Code(s): S60.212A - Contusion of left wrist, initial encounter Condition: Stable Prescriptions: New Percocet 5-325 mg tablet 1 tab PO Q6H PRN (Reason: pain) Qty: 12 RF: 0 Zofran 4 mg tablet 4 mg PO DAILY PRN (Reason: nausea and vomiting) Qty: 14 RF: 0 No Action (DME) blood-glucose meter [Blood Glucose Monitoring] Kit See Rx Instructions .ROUTE .MEDSUPPLY Qty: 1 RF: 0 (DME) blood sugar diagnostic Strip See Rx Instructions .ROUTE .MEDSUPPLY Qty: 100 RF: 1 sumatriptan succinate [Imitrex] 100 mg tablet See Rx Instructions PO .COMPLEX Qty: 10 RF: 1 metformin 500 mg tablet 500 mg PO BID 90 Days Qty: 180 RF: 0 Discharge Orders: Discharge Order (Routine); Ordered 12/02/19 Ordered By: [place] Aleman Referrals: Siomara Brower FNP [Primary Care Provider] - 1-3 days Mac Bacon MD [Physician] - 1-3 days Discharge Diet: Usual diet Discharge Activity: Limit activity as instructed Patient Instructions: Wrist Injury (ED) Activity Restrictions/Additional Instructions: Please return to the ER immediately for any of the signs or symptoms listed on your discharge instruction sheets, worsening/changing of your symptoms, you are not getting better as quickly as expected, or for ANY other cause or concerns. Use your splint at all times and take your pain medicine as I have instructed. Be certain to follow-up with Dr. Bacon as soon as possible for recheck. Return to the ER for increased pain, hand/finger numbness or for any other cause for concern. Do not work with your left hand until cleared by orthopedics. You have an abnormality on your x-ray that will need to be evaluated further for possible wrist injury. The joint space between your scaphoid bone and lunate bone on is abnormally wide. This will need to be evaluated further by Dr. Bacon. Be certain to follow-up with Dr. Bacon for recheck. Coding Level of Care Code ED Assistant Clinical Nurse Manager for [facility] Exam Comprehensive
[2019-12-02 20:51] VITALS: BP 154/96; PULSE 96; RESP 16; O2SAT 97
--- NOTE | 2019-12-03 14:39 | DCPLANNER ---
manager cardiac had message to schedule a follow up appointment for patient with ortho. manager cardiac called the ortho clinic, spoke with Pat, gave clinic patients information. manager cardiac was told that patients information would be printed and reviewed. Clinic will call patient with appointment information.
--- NOTE | 2019-12-05 14:06 | DCPLANNER ---
Devora from [facility] called case consultant stating that when clinic called patient to schedule appointment, that clinic was told that patients pcp is sending him somewhere else. No appointment scheduled at this time.
== END 2019-12-02 20:53 | disposition home or self-care (01) ==
PROVIDERS: Emergency Provider Emergency Medicine; PCP Nurse Practitioner Family
DX: S60.212A Contusion of left wrist, initial encounter (principal); W21.07XA Struck by softball, initial encounter; Z85.118 Personal history of other malignant neoplasm of bronchus and lung; E11.9 Type 2 diabetes mellitus without complications; Z87.891 Personal history of nicotine dependence
CPT/HCPCS: 12345; 29125; 73110; 73130; 99281; 99282; 99283

== ENCOUNTER 2020-09-21 21:39 | Emergency (ER) | payer OTHER, SELFPAY ==
[2020-09-21 22:10] VITALS: BP 133/86; PULSE 91; RESP 20; TEMP 36.6; O2SAT 97; BMI 27.1
--- NOTE | 2020-09-21 22:20 | W.ED.ABDPA2 ---
HPI - Abdominal Pain General: Chief Complaint: Abdominal Pain Stated Complaint: RLQ ABD PAIN, BLOODY STOOL Time Seen by Provider: 09/21/20 22:17 History of Present Illness: HPI narrative: This patient is a 45-year-old male who presents to the emergency department complaint of right lower quadrant abdominal pain began today at work. Patient states the pain is becoming tense in its presentation real sharp. Patient states he tried to have a bowel movement and notices bright red blood also. Patient denies any history of diverticulitis. Patient denies fever. Will do medical evaluation treat as needed MD elicited complaint: abdominal pain Pertinent past history: none Onset (ago): hour(s) Pain Consistency: constant Location: RLQ Severity: moderate Quality: stabbing, aching and sharp Associated Symptoms: Reports hematochezia; Denies chills, dysuria, fever(s), nausea and vomiting Review of Systems General: Reports: 10 or more systems reviewed and unremarkable except in HPI and below Const: Denies: fever(s), chills, body aches or fatigue Eyes: Denies: change in vision or blurry vision ENMT: Denies: throat pain, hoarseness or mouth pain Card: Denies: chest pain, palpitations, irregular heart rhythm, edema, swelling of feet/ankles or lightheadedness Resp: Denies: dyspnea, productive cough, non-productive cough, wheezing or pain on inspiration GI: Reports: abdominal pain and hematochezia; Denies: nausea or vomiting : Denies: flank pain, dysuria, urinary frequency, urinary urgency or urinary hesitancy Musc: Denies: neck pain, back pain, extremity pain, extremity swelling, joint pain, joint swelling, joint redness, joint warmth or limited range of motion Skin/Breast: Denies: rash, pruritus, erythema or skin tenderness Neuro: Denies: headache(s), numbness in extremities or weakness in extremities Psych: Denies: anxiety or depression PFSH ED PFSH: Medical History Hx of cancer of lung Migraines Shingles outbreak Type 2 diabetes mellitus without complication Surgical History H/O neck surgery History of hip surgery History of lumbosacral spine surgery History of lung surgery History of repair of ACL Hx of shoulder surgery Family History Grandmother Stroke Other Cancer Social History Smoking and tobacco status: former smoker Quit status (tobacco): has quit using tobacco Year quit tobacco: 2012 - 1PPD x 6 Years Alcohol intake: never Lives independently: Yes Household members: spouse and children Current occupational status: employed History of recent travel: No Current gender identity: Male Physical Exam Const: COMMON NORMALS: no acute distress, average body habitus, patient oriented x3, no limitations, healthy appearing, alert and well nourished HENMT: COMMON NORMALS: normocephalic, atraumatic, hearing grossly normal bilaterally, external ears normal, EAC's normal, TM's normal bilaterally, Normal external nose present, Normal nasal mucous membranes and turbinates present, moist oral mucous membranes, oropharynx normal, dentition normal and gingiva normal HEAD & SCALP: normocephalic and atraumatic NOSE: Normal external nose present and Normal nasal mucous membranes and turbinates present EXTERNAL EAR: Yes external ears normal EXTERNAL AUDITORY CANAL: EAC's normal TYMPANIC MEMBRANE: TM's normal bilaterally Neck/C-Spine: COMMON NORMALS: full ROM, no lymphadenopathy, supple, no meningeal signs, no JVD, Thyroid normal and No carotid bruits THYROID: Thyroid normal Chest: COMMONS NORMALS: normal inspection of the chest, normal palpation of entire chest wall, normal inspection of the breasts and normal palpation of the breasts Breast/axilla inspection: Yes normal inspection of the breasts BREAST/AXILLA PALPATION: Yes normal palpation of the breasts Resp: COMMON NORMALS: normal respiratory effort, No retractions, No use of accessory muscles, clear to auscultation bilaterally and percussion normal AUSCULTATION: clear to auscultation bilaterally PERCUSSION: percussion normal Cardio: COMMON NORMALS: no JVD, regular rate, regular rhythm, S1 normal heart sound present, S2 normal heart sound present, No gallops present (Cardio), No clicks present (Cardio), No murmurs present (Cardio), No rub (Cardio) and Peripheral pulses 2+ throughout RATE: regular rate RHYTHM: regular rhythm HEART SOUNDS: S1 normal heart sound present and S2 normal heart sound present PERIPHERAL PULSES: Peripheral pulses 2+ throughout GI: COMMON NORMALS: Normal to inspection, nondistended, normoactive bowel sounds present, Soft to palpation, No hepatosplenomegaly present, no masses and no bruits PALPATION: Yes Soft to palpation, Yes Tenderness to palpation present (GI) Details: RLQ and Yes No hepatosplenomegaly present : COMMON NORMALS: Yes no CVA tenderness BLADDER/KIDNEY EXAM: Yes no CVA tenderness Back/Pelvis: COMMON NORMALS: no CVA tenderness, thoracic and lumbar spine normal to inspection, no thoracic nor lumbar tenderness, thoraco-lumbar ROM normal and straight leg raise negative bilaterally Extremity: COMMON NORMALS: normal to inspection, full ROM, capillary refill normal, no joint enlargement, no clubbing, cyanosis or edema, no calf tenderness and no pedal edema Neuro: COMMON NORMALS: patient oriented x3 SENSORIUM/ORIENTATION: Yes alert MENINGEAL SIGNS: Yes no meningeal signs Course Reevaluation(s): Reevaluation #1: Patient is acute colitis. CT scan shows colitis in the ascending and transverse colon. Patient given Levaquin and Flagyl in the emergency department along with pain medication IV fluid bolus. Patient will be discharged home to encourage p.o. fluids. Take medications as prescribed. Do clear liquid diet until pain free. Follow-up with primary care physician in 2 to 3 days. Return to the emergency department symptoms fail to improve or worsen. Patient states understanding Time: 00:14 Vital Signs: Vital signs: Vital Signs Temperature 98 F 09/21/20 22:10 Pulse Rate 75 09/21/20 23:52 Respiratory Rate 18 09/21/20 23:52 Blood Pressure 142/78 09/21/20 23:52 Pulse Oximetry 97 09/21/20 23:52 MDM - Abdominal Pain MDM Narrative: Medical decision making narrative: This patient is a 45-year-old male who presents to the emergency department complaint of right lower quadrant abdominal pain began today at work. Patient states the pain is becoming tense in its presentation real sharp. Patient states he tried to have a bowel movement and notices bright red blood also. Patient denies any history of diverticulitis. Patient denies fever. Patient is acute colitis. CT scan shows colitis in the ascending and transverse colon. Patient given Levaquin and Flagyl in the emergency department along with pain medication IV fluid bolus. Patient will be discharged home to encourage p.o. fluids. Take medications as prescribed. Do clear liquid diet until pain free. Follow-up with primary care physician in 2 to 3 days. Return to the emergency department symptoms fail to improve or worsen. Patient states understanding Differential Diagnosis: Differential diagnosis abdominal pain: Likely abdominal pain, acute appendicitis, calculus of kidney, constipation, diverticulitis, endometriosis, gastroenteritis, pancreatitis and small bowel obstruction Medical Records: Attestation: I reviewed the patient's medical records. Lab Data: Attestation: I reviewed the patient's lab results. Labs: Lab Results 09/21/20 09/21/20 09/21/20 Range/Units 22:51 22:51 22:51 WBC 5.3 (4.0-10.0) 10^3/ uL RBC 4.50 (4.1-5.3) 10^6/u L Hgb 13.7 (11.7-16.6) g/dL Hct 40.0 L (42.0-52.0) % MCV 88.9 (80-94) fL MCH 30.4 (28.0-34.0) pg MCHC 34.3 (30.0-36.0) g/dL RDW 11.8 L (12.1-15.1) % Plt Count 253 (130-400) 10^3/c mm MPV 10.3 (7.4-10.4) fL Neut % (Auto) 55.8 % Lymph % (Auto) 33.5 % Merrick % (Auto) 5.8 % Eos % (Auto) 1.9 % Baso % (Auto) 2.6 % Neut # (Auto) 2.97 (1.8-7.7) 10^3/u L Lymph # (Auto) 1.8 (0.8-4.8) 10^3/u L Merrick # (Auto) 0.3 (0.2-0.9) 10^3/u L Eos # (Auto) 0.1 (0.0-0.8) 10^3/u L Baso # (Auto) 0.1 (0.0-0.1) 10^3/u L Nucleated RBC % (a uto) 0 % Nucleated RBCs # 0.0 /100WBC Sodium 135 L (136-145) mmol/L Potassium 3.7 (3.5-5.1) mmol/L Chloride 98 (98-107) mmol/L Carbon Dioxide 24 (22-29) mmol/L Anion Gap 16.7 (5-19) BUN 14 (6-20) mg/dL Creatinine 0.9 (0.7-1.2) mg/dL GFR Calculation 92.1 (90-130) mL/min Glucose 300 H (65-115) mg/dL Calculated Osmolal ity 292 (285-295) mOsm/k g Calcium 8.1 L (8.5-10.5) mg/dL Total Bilirubin 0.3 (0.15-1.2) mg/dL AST 34 (0-40) U/L ALT 77 H (0-41) U/L Alkaline Phosphata se 77 (40-130) IU/L Total Protein 6.0 L (6.6-8.7) g/dL Albumin 4.2 (3.5-5.2) g/dL Globulin 1.8 (1.3-4.6) g/dL Lipase 33 (13-60) U/L Urine Color (Yellow) Urine Appearance (CLEAR) Urine pH (5-7) Ur Specific Gravit y (1.005-1.030) Urine Protein (Negative) Urine Glucose (UA) (Normal) Urine Ketones (Negative) Urine Blood (Negative) Urine Nitrate (Negative) Urine Bilirubin (Negative) Urine Urobilinogen (Negative) mg/dL Ur Leukocyte Sammi ase (Negative) SARS-CoV-2 Ag (Rap id) Negative (Negative) 09/21/20 Range/Units 23:05 WBC (4.0-10.0) 10^3/ uL RBC (4.1-5.3) 10^6/u L Hgb (11.7-16.6) g/dL Hct (42.0-52.0) % MCV (80-94) fL MCH (28.0-34.0) pg MCHC (30.0-36.0) g/dL RDW (12.1-15.1) % Plt Count (130-400) 10^3/c mm MPV (7.4-10.4) fL Neut % (Auto) % Lymph % (Auto) % Merrick % (Auto) % Eos % (Auto) % Baso % (Auto) % Neut # (Auto) (1.8-7.7) 10^3/u L Lymph # (Auto) (0.8-4.8) 10^3/u L Merrick # (Auto) (0.2-0.9) 10^3/u L Eos # (Auto) (0.0-0.8) 10^3/u L Baso # (Auto) (0.0-0.1) 10^3/u L Nucleated RBC % (a uto) % Nucleated RBCs # /100WBC Sodium (136-145) mmol/L Potassium (3.5-5.1) mmol/L Chloride (98-107) mmol/L Carbon Dioxide (22-29) mmol/L Anion Gap (5-19) BUN (6-20) mg/dL Creatinine (0.7-1.2) mg/dL GFR Calculation (90-130) mL/min Glucose (65-115) mg/dL Calculated Osmolal ity (285-295) mOsm/k g Calcium (8.5-10.5) mg/dL Total Bilirubin (0.15-1.2) mg/dL AST (0-40) U/L ALT (0-41) U/L Alkaline Phosphata se (40-130) IU/L Total Protein (6.6-8.7) g/dL Albumin (3.5-5.2) g/dL Globulin (1.3-4.6) g/dL Lipase (13-60) U/L Urine Color Yellow (Yellow) Urine Appearance Clear (CLEAR) Urine pH 5 (5-7) Ur Specific Gravit y 1.010 (1.005-1.030) Urine Protein Neg (Negative) Urine Glucose (UA) 4+ H (Normal) Urine Ketones Negative (Negative) Urine Blood Neg (Negative) Urine Nitrate Negative (Negative) Urine Bilirubin Neg (Negative) Urine Urobilinogen Norm (Negative) mg/dL Ur Leukocyte Sammi ase Negative (Negative) SARS-CoV-2 Ag (Rap id) (Negative) Imaging Data ^: CT Abd/Pel: Attestation: I personally reviewed and interpreted this imaging study as follows: Radiologist's impression: [address] [id number] Scan ReportSigned Patient: Henry Fisher #: [id number]: 1975Acct#:[id number]/Sex: 45 / MADM Date: 09/21/20Loc: ERRoom/Bed:Attending Dr: Ordering Provider/Ordering MD: Dameon Baig MD Date of Service: 09/21/20 Procedure(s): CT abdomen pelvis w con* [id number] Accession Number(s): [id number] Report Number: [id number] PROCEDURE INFORMATION: Exam: CT Abdomen And Pelvis With Contrast Exam date and time: 09/21/2020 10:19 PM Age: 45 years old Clinical indication: Abdominal pain; Localized; Right lower quadrant (rlq); Prior surgery; Surgery type: Hip, right lung, spine; Patient HX: HX of lung cancer; Additional info: Abd pain TECHNIQUE: Imaging protocol: Computed tomography of the abdomen and pelvis with contrast. Radiation optimization: All CT scans at this facility use at least one of these dose optimization techniques: automated exposure control; mA and/or kV adjustment per patient size (includes targeted exams where dose is matched to clinical indication); or iterative reconstruction. Contrast material: OMNI 300; Contrast volume: 95 ml; Contrast route: INTRAVENOUS (IV); COMPARISON: CT Chest/Abdomen/Pelvis w IV* 01/02/2018 11:19 PM RADIATION DOSE METRICS: Total DLP (mGy-cm): 1747.81 FINDINGS: Lungs: Nonspecific fibrosis at the right lung base. Stable 4 mm nodule at the right lung base. Liver: Decreased hepatic density is noted, consistent with hepatic steatosis. Gallbladder and bile ducts: No calcified stones. No ductal dilation. Pancreas: The pancreas is normal in appearance. No pancreatic duct dilatation. Spleen: The spleen is normal in size and appearance. Adrenal glands: The adrenal glands appear within normal limits. Kidneys and ureters: 5 mm simple appearing right renal cyst. No solid renal masses. No hydronephrosis. Normal ureters. Stomach and bowel: Mural thickening of the distal ascending and proximal transverse portions of the colon. No acute gastric abnormality demonstrated. The small bowel is unremarkable as demonstrated. Appendix: The appendix is normal in appearance. No evidence of appendicitis. Intraperitoneal space: No pneumoperitoneum. No significant fluid collection. Vasculature: The aorta is unremarkable as demonstrated. Lymph nodes: No pathologically enlarged lymph nodes are demonstrated. No pathologically enlarged lymph nodes are demonstrated. Urinary bladder: The urinary bladder is unremarkable in appearance. The urinary bladder is unremarkable in appearance. Reproductive: Unremarkable as visualized. Bones/joints: No fracture or other acute osseous abnormality. Soft tissues: The abdominal wall demonstrates a small umbilical hernia, containing only fat. The soft tissues appear unremarkable. The soft tissues appear unremarkable. CT/CT abdomen pelvis w con* [id number] IMPRESSION: 1. Mural thickening of the distal ascending and proximal transverse portions of the colon. This may represent mild nonspecific colitis. 2. The appendix is normal in appearance. No evidence of appendicitis. 3. Decreased hepatic density is noted, consistent with hepatic steatosis. No acute abnormality demonstrated of the solid organs. Discharge Plan Discharge Patient Disposition: Home Clinical Impression: Acute colitis Condition: Stable Prescriptions: New Flagyl 500 mg tablet 500 mg PO BID 7 Days Qty: 14 RF: 0 Cipro 500 mg tablet 500 mg PO BID Qty: 20 RF: 0 dicyclomine 20 mg tablet 20 mg PO TID Qty: 30 RF: 0 diclofenac sodium 75 mg tablet,delayed release (DR/EC) 75 mg PO BID PRN (Reason: pain) Qty: 20 RF: 0 No Action (DME) blood-glucose meter [Blood Glucose Monitoring] Kit See Rx Instructions .ROUTE .MEDSUPPLY Qty: 1 RF: 0 (DME) blood sugar diagnostic Strip See Rx Instructions .ROUTE .MEDSUPPLY Qty: 100 RF: 1 sumatriptan succinate [Imitrex] 100 mg tablet See Rx Instructions PO .COMPLEX Qty: 10 RF: 1 acyclovir 400 mg tablet 400 mg PO DAILY Qty: 30 RF: 1 metformin 500 mg tablet 500 mg PO BID 90 Days Qty: 180 RF: 0 Percocet 5-325 mg tablet 1 tab PO Q6H PRN (Reason: pain) Qty: 12 RF: 0 Zofran 4 mg tablet 4 mg PO DAILY PRN (Reason: nausea and vomiting) Qty: 14 RF: 0 Discharge Orders: Discharge ED (Routine); Ordered 09/22/20 Ordered By: Dameon Baig Referrals: Siomara Brower FNP [Primary Care Provider] - Discharge Diet: Clear Liquid Discharge Activity: Resume usual activity Patient Instructions: Opioid Safety Activity Restrictions/Additional Instructions: Patient will be discharged home to encourage p.o. fluids. Take medications as prescribed. Do clear liquid diet until pain free. Follow-up with primary care physician in 2 to 3 days. Return to the emergency department symptoms fail to improve or worsen. Patient states understanding Coding Level of Care Code ED Web Offset Press Feeder for Chg Fwd Exam Comprehensive
[2020-09-21] MEDS: iohexol 300 mg/mL 100 mL Btl IV (22:31)
[2020-09-21] MEDS: morphine 4 mg/mL SDV 1 mL 2 MG IVP (22:46)
[2020-09-21] MEDS: ondansetron 2 mg/ML SDV 2 mL 4 MG IVP (22:46)
[2020-09-21] MEDS: sodium chloride 0.9% 1,000 ML 999 ML IV (22:46)
[2020-09-21 23:07] LABS: Basophils # 0.1 10^3/uL (0.0-0.1); Basophils % 2.6 %; Eosinophils # 0.1 10^3/uL (0.0-0.8); Eosinophils % 1.9 %; Hemoglobin 13.7 g/dL (11.7-16.6); Lymphocytes # 1.8 10^3/uL (0.8-4.8); Lymphocytes % 33.5 %; Mean Corpuscular HGB Conc 34.3 g/dL (30.0-36.0); Mean Corpuscular Hemoglobin 30.4 pg (28.0-34.0); Mean Corpuscular Volume 88.9 fL (80-94); Mean Platelet Volume 10.3 fL (7.4-10.4); Monocytes # 0.3 10^3/uL (0.2-0.9); Monocytes % 5.8 %; Neutrophils # 2.97 10^3/uL (1.8-7.7); Neutrophils % 55.8 %; Nucleated Red Blood Cells % 0 %; Platelet Count 253 10^3/cmm (130-400); Red Cell Distribution Width 11.8 % (12.1-15.1); White Blood Count 5.3 10^3/uL (4.0-10.0)
[2020-09-21 23:11] LABS: Add Urine Microscopic? NO; Charge for UA Resulting for Rev
[2020-09-21 23:13] LABS: Urine Appearance Clear (CLEAR); Urine Color Yellow (Yellow); pH Urine 5 (5-7)
[2020-09-21 23:14] LABS: Bilirubin Urine Neg (Negative); Blood Urine Neg (Negative); Glucose Urine UA 4+ (Normal); Ketones Urine Negative (Negative); Leukocyte Esterase Urine Negative (Negative); Nitrate Urine Negative (Negative); Protein Urine Neg (Negative); Urobilinogen Urine Norm (Negative)
[2020-09-21 23:25] LABS: SARS Covid-2 Antigen Negative (Negative)
[2020-09-21 23:31] LABS: Alanine Aminotransferase 77 U/L (0-41); Albumin Level 4.2 g/dL (3.5-5.2); Alkaline Phosphatase 77 IU/L (40-130); Anion Gap 16.7 (5-19); Aspartate Amino Transferase 34 U/L (0-40); Blood Urea Nitrogen 14 mg/dL (6-20); Calcium 8.1 mg/dL (8.5-10.5); Carbon Dioxide 24 mmol/L (22-29); Chloride 98 mmol/L (98-107); Globulin 1.8 g/dL (1.3-4.6); Glomerular Filtration Rate 92.1 mL/min (90-130); Glucose 300 mg/dL (65-115); Lipase 33 U/L (13-60); Osmolality Calculated 292 mOsm/kg (285-295); Potassium 3.7 mmol/L (3.5-5.1); Sodium 135 mmol/L (136-145); Total Bilirubin 0.3 mg/dL (0.15-1.2)
[2020-09-21] MEDS: metroNIDAZOLE IV 500 MG/100 ML PREMIX 100 MG IV (23:44)
[2020-09-21] MEDS: levoFLOXacin 750 mg Tablet PO (23:44)
[2020-09-21 23:52] VITALS: BP 142/78; PULSE 75; RESP 18; O2SAT 97
[2020-09-22] MEDS: morphine 4 mg/mL SDV 1 mL IVP (00:32)
[2020-09-22 01:22] VITALS: BP 122/71; PULSE 77; RESP 18; O2SAT 97
== END 2020-09-22 01:23 | disposition home or self-care (01) ==
PROVIDERS: Nurse Practitioner Family; Emergency Provider Emergency Medicine; PCP Nurse Practitioner Family
DX: K52.9 Noninfective gastroenteritis and colitis, unspecified (principal); E11.9 Type 2 diabetes mellitus without complications; Z79.84 Long term (current) use of oral hypoglycemic drugs; Z87.891 Personal history of nicotine dependence
CPT/HCPCS: 74177; 80053; 81003; 83690; 85025; 87040; 87426; 96365; 96375; 96376; 99284; J2270; J2405; J7030; Q9967; S0030

== ENCOUNTER → 2020-12-21 09:23 | Outpatient (BNVA) | payer OTHER, SELFPAY | PROVIDERS: PCP Nurse Practitioner Family; Referring Provider Nurse Practitioner Family; Visit Provider Anesthesiology Pain Medicine | DX: G89.29 Other chronic pain (principal); M54.12 Radiculopathy, cervical region; M43.12 Spondylolisthesis, cervical region; M50.90 Cervical disc disorder, unspecified, unspecified cervical region; M47.812 Spondylosis without myelopathy or radiculopathy, cervical region; M47.814 Spondylosis without myelopathy or radiculopathy, thoracic region | CPT/HCPCS: 99205 ==

== ENCOUNTER 2021-01-21 07:52 | Outpatient (CLI) | payer OTHER, SELFPAY ==
--- NOTE | 2021-01-21 07:55 | MR_ITS ---
WS: [id number] MRI CERVICAL SPINE NONCONTRAST HISTORY: M54.12 - Radiculopathy, cervical region COMPARISON: 03/17/2017 Technique: Multiplanar, multisequence noncontrast imaging of the cervical spine. Very slight increase in the cervical lordosis. Prior anterior cervical fusion from C5 through C7. No fracture or marrow edema. Signal within the cervical cord is normal. Visualized posterior fossa is unremarkable. Craniocervical junction, C1 and C2 relationship, odontoid process and soft tissues are normal. There is a small central and foraminal disc protrusion at the T2-3 level which does not appear to be contacting the cord. C2-C3: Mild osteophytic ridging. No stenosis. C3-C4: Small vertebral body osteophytes with no stenosis. C4-C5: Central disc protrusion and vertebral body osteophytes. No contact on the ventral cord. Very s light narrowing of the central canal and foramina. Mild bilateral facet joint arthritis. C5-C6: Mild facet arthritis. No stenosis. C6-C7: Small osteophytes but no disc protrusion. Very slight encroachment upon the ventral thecal sac . No stenosis. C7-T1: Small foraminal osteophytes and mild facet arthritis. Paraspinal soft tissue are normal. MR/MR cervical spin wo con* [id number] IMPRESSION: 1. Prior anterior cervical fusion from C5 through C7. 2. No high-grade stenosis. 3. Small central disc protrusion and vertebral body osteophytes at C4-5 causin g mild central and foraminal narrowing. 4. Mild facet arthritis from C4-5 through C7-T1.
== END 2021-01-21 07:53 | disposition home or self-care (01) ==
LOC: RADSHAW 07:54
PROVIDERS: PCP Nurse Practitioner Family; Visit Provider Anesthesiology Pain Medicine
DX: M54.12 Radiculopathy, cervical region (principal); M43.22 Fusion of spine, cervical region; M50.221 Other cervical disc displacement at C4-C5 level; M25.78 Osteophyte, vertebrae; M47.812 Spondylosis without myelopathy or radiculopathy, cervical region; M47.813 Spondylosis without myelopathy or radiculopathy, cervicothoracic region
CPT/HCPCS: 72141

== ENCOUNTER → 2021-01-31 09:40 | Outpatient (BNVA) | payer OTHER, SELFPAY | PROVIDERS: PCP Nurse Practitioner Family; Visit Provider Anesthesiology Pain Medicine | DX: G89.29 Other chronic pain (principal); M50.90 Cervical disc disorder, unspecified, unspecified cervical region; M47.812 Spondylosis without myelopathy or radiculopathy, cervical region; M47.814 Spondylosis without myelopathy or radiculopathy, thoracic region | CPT/HCPCS: 99214 ==

== ENCOUNTER → 2021-02-11 08:52 | Outpatient (BNVA) | payer OTHER, SELFPAY | PROVIDERS: PCP Nurse Practitioner Family; Visit Provider Nurse Practitioner Family | DX: E78.5 Hyperlipidemia, unspecified (principal); E11.9 Type 2 diabetes mellitus without complications; I10 Essential (primary) hypertension; Z13.29 Encounter for screening for other suspected endocrine disorder; G43.909 Migraine, unspecified, not intractable, without status migrainosus | CPT/HCPCS: 80053; 80061; 82043; 83036; 83721; 84443 ==

== ENCOUNTER → 2021-02-17 14:42 | Outpatient (BNVA) | payer OTHER, SELFPAY | PROVIDERS: PCP Nurse Practitioner Family; Visit Provider Anesthesiology Pain Medicine | DX: E11.9 Type 2 diabetes mellitus without complications (principal); Z01.812 Encounter for preprocedural laboratory examination | CPT/HCPCS: 82962 ==

== ENCOUNTER 2021-05-03 14:51 | Outpatient (CLI) | payer OTHER, SELFPAY ==
--- NOTE | 2021-05-03 15:07 | XRR_ITS ---
PROCEDURE INFORMATION: Exam: XR Pelvis Exam date and time: 05/03/2021 3:07 PM Age: 46 years old Clinical indication: Other: Low back pain; Prior surgery; Surgery type: Rll lung; Additional info: R10.2 - pelvic and perineal pain TECHNIQUE: Imaging protocol: XR pelvis. Views: 1 or 2 view. COMPARISON: CT abdomen pelvis w con* [id number] 09/21/2020 10:28 PM FINDINGS: Bones/joints: Unremarkable. No acute fracture. Soft tissues: Unremarkable. XR/XR pelvis min 3V [id number] IMPRESSION: No acute findings.
--- NOTE | 2021-05-03 15:07 | XRR_ITS ---
PROCEDURE INFORMATION: Exam: XR Lumbosacral Spine Exam date and time: 05/03/2021 3:07 PM Age: 46 years old Clinical indication: Pain and condition or disease; Spondylosis, lumbosacral; Lumbar region; Low back pain; Additional info: M47.816 - spondylosis without myelopathy or radiculopathy. . . TECHNIQUE: Imaging protocol: XR of the lumbosacral spine. Views: 4 or 5 views. COMPARISON: [place] [id number] 01/02/2018 11:13 PM FINDINGS: Bones/joints: Mild dextrocurvature of the lumbar spine. Moderate L5/S1 disc space narrowing greatest posteriorly. Mild multilevel productive degenerative endplate changes throughout the spine. Soft tissues: Unremarkable. XR/XR lumbar spine min 4V [id number] IMPRESSION: 1. Mild dextrocurvature of the lumbar spine. 2. Moderate L5/S1 disc space narrowing greatest posteriorly. 3. Mild multilevel productive degenerative endplate changes throughout the spine.
== END 2021-05-03 14:52 | disposition home or self-care (01) ==
PROVIDERS: PCP Nurse Practitioner Family; Visit Provider Anesthesiology Pain Medicine
DX: R10.2 Pelvic and perineal pain (principal); M54.50 Low back pain, unspecified; M47.816 Spondylosis without myelopathy or radiculopathy, lumbar region; M43.9 Deforming dorsopathy, unspecified
CPT/HCPCS: 72110; 72190

== ENCOUNTER → 2021-05-20 09:02 | Outpatient (BNVA) | payer OTHER, SELFPAY | PROVIDERS: PCP Nurse Practitioner Family; Visit Provider Nurse Practitioner Family | DX: E11.9 Type 2 diabetes mellitus without complications (principal); E78.5 Hyperlipidemia, unspecified | CPT/HCPCS: 80061; 83036 ==

== ENCOUNTER 2021-05-25 14:48 | Outpatient (CLI) | payer OTHER, SELFPAY ==
--- NOTE | 2021-05-25 14:59 | XR_ITS ---
WS: [id number] Right foot, 3 views, 05/25/2021 Clinical Data: S99.921A - Unspecified injury of right foot, initial enco... Comparison: None. Findings: No fractures or dislocations are seen. No bone destruction or erosion is noted. The joint spaces and soft tissues are normal. There is a small Achilles spur. XR/XR foot RT min 3V* [id number] Impression: Negative right foot.
--- NOTE | 2021-05-25 14:59 | XR_ITS ---
WS: [email or web address] Cervical spine, 3 views, 05/25/2021 Clinical Data: M54.2 - Cervicalgia Comparison: None. Findings: No compression fractures are seen. There is an anterior cervical disc fusion C5-C7 intact. There are artificial disks at C5-C6 and C6-C7. There is no prevertebral soft tissue swelling. The odo ntoid is unremarkable. The soft tissues of the neck and the lung apices are normal. XR/XR cervical spine 3V* [id number] Impression: Anterior cervical disc fusion C5-C7.
== END 2021-05-25 14:49 | disposition home or self-care (01) ==
LOC: RAD 14:50
PROVIDERS: PCP Nurse Practitioner Family; Referring Provider Nurse Practitioner Family; Visit Provider Anesthesiology Pain Medicine
DX: M54.2 Cervicalgia (principal); S99.921A Unspecified injury of right foot, initial encounter; X58.XXXA Exposure to other specified factors, initial encounter; Z98.1 Arthrodesis status
CPT/HCPCS: 72040; 73630

== ENCOUNTER → 2022-01-24 08:11 | Outpatient (BNVA) | payer OTHER, SELFPAY | PROVIDERS: PCP Nurse Practitioner Family; Visit Provider Nurse Practitioner Family | DX: E11.9 Type 2 diabetes mellitus without complications (principal); E78.5 Hyperlipidemia, unspecified; Z79.899 Other long term (current) drug therapy | CPT/HCPCS: 80053; 80061; 83036 ==

== ENCOUNTER 2022-05-31 12:47 | Emergency (ER) | payer OTHER, SELFPAY ==
[2022-05-31 12:53] VITALS: BP 157/91; PULSE 77; RESP 16; TEMP 36.6; O2SAT 97; BMI 26.4
[2022-05-31 14:17] VITALS: BP 127/90; PULSE 75; RESP 16; O2SAT 99
--- NOTE | 2022-05-31 14:21 | CT_ITS ---
WS: [email or web address] CT HEAD TECHNIQUE: Noncontrast CT of the head obtained from the skullbase to the vertex. CLINICAL INFORMATION: occipital trauma COMPARISON: 2018 DLP: 1260.[address] scans at [facility] use at least one of these dose optimization techniques: automated e xposure control; mA and/or kV adjustment per patient size (includes targeted exams where dose is matc hed to clinical indication); or iterative reconstruction. FINDINGS: No evidence of intracranial hemorrhage or mass effect. Ventricular system and basal cisterns are levine nt. No extra-axial fluid collections. No evidence of mass or mass effect. Normal nichols-white different iation. Paranasal sinuses and mastoid air cells are well aerated. .Normal visualized soft tissues. CT/CT head wo con* [id number] IMPRESSION: 1. No evidence of intracranial hemorrhage or mass effect. 2. No acute intracranial findings.
--- NOTE | 2022-05-31 14:21 | CT_ITS ---
WS: [email or web address] CT CERVICAL TRAUMA TECHNIQUE: Noncontrast CT of the cervical spine with coronal and sagittal reformatted images. CLINICAL INFORMATION: trauma to occiput/c-spine (prior fusion) COMPARISON: None. DLP: 1260.[address] scans at [facility] use at least one of these dose optimization techniques: automated e xposure control; mA and/or kV adjustment per patient size (includes targeted exams where dose is matc hed to clinical indication); or iterative reconstruction. FINDINGS: Straightening with slight reversal of the normal cervical lordosis. Slight anterolisthesis C2 on C3 l ikely due to flexion positioning. Prior postoperative changes ACDF C5-C7. Hardware appears normal. Normal craniocervical junction. Normal C1-C2 articulation. Dens is normal in appearance Degenerative change along the LEFT occipital condyle unchanged. No high-grade spinal canal narrowing. Normal C1 ri ng. No evidence of acute fracture or dislocation. Normal prevertebral soft tissues. Mastoids air cells are well aerated. CT/CT cervical spin wo con* [id number] IMPRESSION: No evidence of acute fracture or dislocation.
--- NOTE | 2022-05-31 14:23 | ED_ITS ---
HPI - Head Injury General: Chief complaint: Head Injury Stated complaint: states contusion to back of head Time Seen by Provider: 05/31/22 14:12 Source: patient Mode of arrival: ambulatory Limitations: no limitations History of Present Illness: Patient comes to our emergency department today because of head trauma. 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 He states he did not suffer loss of consciousness but saw stars and was propelled forward when struck. He states that since that time he has had neck pain mild headache and [place] funny feeling in the right side of his head. He states it hurts to move his head and neck to the left and right. Prior history of cervical fusion done at [facility] in approximately 2010. He is unsure if he had a cervical herniated disc or exactly what pathology was but he states he was told he needed a cervical fusion at that time. No other injuries or complaints at this time. No nausea, vomiting, change in vision, numbness and tingling of his extremities no weakness. Mechanism of Injury: work related injury Place: work Loss of Consciousness: no Location of injury: occipital Associated symptoms: Reports neck pain and tingling; Deny nausea, syncope, vertigo or vomiting Review of Systems Const: Denies: fever(s) Eyes: Denies: change in vision ENMT: Denies: throat pain or odynophagia Card: Denies: chest pain, syncope or pre-syncope Resp: Denies: dyspnea, productive cough or non-productive cough GI: Denies: nausea or vomiting Musc: Reports: neck pain; Denies: back pain, extremity pain or extremity swelling Skin/Breast: Denies: rash Neuro: Reports: headache(s); Denies: numbness in extremities, weakness in extremities, dizziness, vertigo, Slurred speech present or seizure-like activity [facility] ED PFSH: Medical History Hx of cancer of lung Hyperlipidemia Migraines Shingles outbreak Type 2 diabetes mellitus without complication Surgical History H/O neck surgery History of colonoscopy 2013 History of hip surgery History of lumbosacral spine surgery History of lung surgery History of repair of ACL Hx of shoulder surgery Family History Grandmother Stroke Dementia Hyperlipidemia Grandfather Diabetes Mother Hyperlipidemia Other Cancer Denies family history of CAD (coronary artery disease) Chronic kidney disease (CKD) Anesthesia complication Bleeding disorder Lung disease Hypertension Social History Smoking and tobacco status: former smoker Quit status (tobacco): has quit using tobacco Year quit tobacco: 2011 - 1PPD x 6 Years Alcohol intake: never Lives independently: Yes Household members: spouse and children Current occupational status: employed Current gender identity: Male Physical Exam Narrative: EXAM NARRATIVE: Alert makes good eye contact speech is goal-directed. Appears to be in no acute distress Const: COMMON NORMALS: no acute distress, average body habitus, patient oriented x3, healthy appearing and alert GENERAL APPEARANCE: cooperative HENMT: COMMON NORMALS: normocephalic HEAD & SCALP: normocephalic HEAD IMAGES: 1. Area of tenderness to palpation no step-off. No skin wounds, ecchymosis etc. FACE & SINUS: normal facial exam and face symmetric Eye: COMMON NORMALS: Equal, round and reactive pupils present, EOMs intact bilaterally and conjunctivae normal CONJUNCTIVA: Yes conjunctivae normal PUPIL: Yes Equal, round and reactive pupils present Neck/C-Spine: CERVICAL SPINE: Yes cervical ROM abnormal rotation to the left decreased, rotation to the right decreased and anterior flexion decreased, No step off deformity, Yes Paracervical muscle tenderness right>left, Yes Paracervical spasm right and Yes Trapezius muscle tenderness Resp: COMMON NORMALS: normal respiratory effort, No use of accessory muscles and clear to auscultation bilaterally EFFORT & INSPECTION: Yes able to speak in complete sentences AUSCULTATION: clear to auscultation bilaterally Cardio: COMMON NORMALS: regular rate, regular rhythm and Peripheral pulses 2+ throughout RATE: regular rate RHYTHM: regular rhythm PERIPHERAL PULSES: Peripheral pulses 2+ throughout Back/Pelvis: COMMON NORMALS: thoracic and lumbar spine normal to inspection and no thoracic nor lumbar tenderness Extremity: COMMON NORMALS: normal to inspection, full ROM and capillary refill normal Neuro: COMMON NORMALS: patient oriented x3, moves all extremities and no focal motor deficits SENSORIUM/ORIENTATION: Yes alert CRANIAL NERVES: Yes CN normal except as noted Course Vital Signs: Vital signs: Vital Signs Temperature 97.8 F 05/31/22 12:53 Pulse Rate 75 05/31/22 15:30 Respiratory Rate 14 05/31/22 15:30 Blood Pressure 141/84 05/31/22 15:30 Pulse Oximetry 97 05/31/22 15:30 Oxygen Delivery Me thod 05/31/22 15:30 MDM - Head Injury Medcial Decision Making This patient presented to our emergency department because of occupational related closed head injury. He was struck by a metal bar in the back of his head and neck. There was no associated loss of consciousness but is wound up presenting to the emergency department because of concerns about that injury. Prior history of cervical fusion. No focal findings noted on his clinical ex amination. Imaging was obtained to ensure no evidence of skull fracture, intracranial hemorrhage, cervical spine fracture etc. Those images were reassuring and repeat examinations did not find any ongoing concerning symptoms. Current presentation is consistent with closed head injury with associated cervical spasm. He is being discharged to outpatient care with symptomatic treatment with ice acetaminophen and resuming activities as tolerated. Also discussed return precautions both he and his work supervisors. Lab Data I reviewed the patient's lab results. Radiology Impressions Cervical Spine CT 05/31/22 14:21 IMPRESSION: No evidence of acute fracture or dislocation. Head CT 05/31/22 14:21 IMPRESSION: 1. No evidence of intracranial hemorrhage or mass effect. 2. No acute intracranial findings. Discharge Plan Discharge Patient Disposition: Home Clinical Impression: Closed head injury Condition: Stable Prescriptions: No Action (DME) blood-glucose meter [Blood Glucose Monitoring] Kit See Rx Instructions .ROUTE .MEDSUPPLY Qty: 1 0RF Rx Instructions: As directed (DME) blood sugar diagnostic Strip See Rx Instructions .ROUTE .MEDSUPPLY Qty: 100 1RF Rx Instructions: As directed cyclobenzaprine 10 mg tablet 10 mg PO TID PRN (Reason: muscle spasm) Qty: 60 0RF ibuprofen 800 mg tablet 800 mg PO Q8H PRN (Reason: pain) Qty: 30 0RF levocetirizine [Xyzal] 5 mg tablet 5 mg PO DAILY Qty: 30 1RF Januvia 50 mg tablet See Rx Instructions .ROUTE .COMPLEX Qty: 90 1RF Dose Instruction: TAKE 1 TABLET BY MOUTH EVERY DAY Rx Instructions: TAKE 1 TABLET BY MOUTH EVERY DAY sumatriptan succinate [Imitrex] 100 mg tablet See Rx Instructions PO .COMPLEX Qty: 10 1RF Rx Instructions: take 1 tab at onset of headache; if no relief may repeat 1 tab in 2hr; max = 2 tabs/24 hrs PO acyclovir 400 mg tablet 400 mg PO DAILY Qty: 30 0RF Discharge Orders: Discharge ED (Routine); Ordered 05/31/22 Ordered By: Quintin Parker Referrals: Siomara Brower FNP [Primary Care Provider] - Discharge Diet: Usual diet Discharge Activity: Increase activity as tolerated Patient Instructions: Opioid Safety, Pain Management Activity Restrictions/Additional Instructions: As we discussed your CT scans obtained today did not reveal any evidence of a serious injury. With head and injuries you may have some persistent mild headache, difficulty with concentration etc. these are usually temporary sympt oms and may not affect you at all. Should you develop increasing pain, weakness numbness repetitive vomiting etc. return to this or the nearest emergency department for reevaluation. You may resume your normal activities as you feel better. You may use Tylenol for pain and use ice pack to your neck and head for any discomfort. Coding Level of Care Code ED Specialized Language Instructor for Anitha Smith
--- NOTE | 2022-05-31 15:11 | PC.NURSE ---
Back in room after CT scan, resting in bed
[2022-05-31 15:30] VITALS: BP 141/84; PULSE 75; RESP 14; O2SAT 97
[2022-05-31 17:02] VITALS: BP 134/78; PULSE 77; RESP 14; O2SAT 99
== END 2022-05-31 17:03 | disposition home or self-care (01) ==
PROVIDERS: Emergency Provider Emergency Medicine; PCP Nurse Practitioner Family
DX: S09.8XXA Other specified injuries of head, initial encounter (principal); Z87.891 Personal history of nicotine dependence; E78.5 Hyperlipidemia, unspecified; E11.9 Type 2 diabetes mellitus without complications; Z85.118 Personal history of other malignant neoplasm of bronchus and lung; W22.8XXA Striking against or struck by other objects, initial encounter; Y99.0 Civilian activity done for income or pay
CPT/HCPCS: 70450; 72125; 99284

== ENCOUNTER → 2022-06-27 14:50 | Outpatient (BNVA) | payer OTHER, SELFPAY | PROVIDERS: PCP Nurse Practitioner Family; Referring Provider Anesthesiology Pain Medicine; Visit Provider Physician Assistant | DX: M50.90 Cervical disc disorder, unspecified, unspecified cervical region (principal) | CPT/HCPCS: 72050 ==

== ENCOUNTER → 2022-09-15 10:32 | Outpatient (BNVA) | payer OTHER, SELFPAY | PROVIDERS: PCP Nurse Practitioner Family; Visit Provider Nurse Practitioner Family | DX: E78.5 Hyperlipidemia, unspecified (principal); E11.9 Type 2 diabetes mellitus without complications; R53.83 Other fatigue; Z80.42 Family history of malignant neoplasm of prostate | CPT/HCPCS: 80053; 80061; 83036; 84403; G0103 ==

== ENCOUNTER 2022-12-08 11:27 | Emergency (ER) | payer OTHER, SELFPAY ==
[2022-12-08 11:50] VITALS: BP 125/85; PULSE 81; RESP 16; TEMP 36.7; O2SAT 95; BMI 25.5
[2022-12-08] MEDS: HYDROcodone-acetaminophen 5-325 mg Tablet 1 TAB PO (13:40)
[2022-12-08] MEDS: lidocaine-prilocaine cream 5 gm 2.5 APPLIC TOPICAL (13:40)
[2022-12-08] MEDS: ketorolac 60 mg/2 mL INJ IM (13:40)
[2022-12-08] MEDS: lidocaine 1% INJ 20 mL 5 ML INTRADERMA (14:26)
--- NOTE | 2022-12-08 15:41 | W.ED.WOUNDLC ---
HPI - Wound/Laceration General: Chief Complaint: Wound/Laceration Stated Complaint: head injury Time Seen by Provider: 12/08/22 12:47 Source: patient Mode of arrival: ambulatory Limitations: no limitations History of Present Illness: Patient presents to the emergency department today for evaluation treatment of injury sustained to the top of his head. Patient states he was using a T post sprinkler driver and lifted it too far above his head. He states the corner of it impacted the top of his head as he was bringing it down again. He had no loss of consciousness. He does complain of a headache and tenderness at the site of the laceration. Last tetanus immunization was less than 5 years ago. Patient is not on a blood thinner. Patient denies nausea, vomiting, blurry vision, or dizziness. Review of Systems General: Reports: 10 or more systems reviewed and unremarkable except in HPI and below PFSH ED PFSH: Medical History Hx of cancer of lung Hyperlipidemia Migraines Shingles outbreak Type 2 diabetes mellitus without complication Surgical History H/O neck surgery History of colonoscopy 2013 History of hip surgery History of lumbosacral spine surgery History of lung surgery History of repair of ACL Hx of shoulder surgery Family History Grandmother Stroke Dementia Hyperlipidemia Grandfather Diabetes Mother Hyperlipidemia Other Cancer Denies family history of CAD (coronary artery disease) Chronic kidney disease (CKD) Anesthesia complication Bleeding disorder Lung disease Hypertension Social History Smoking and tobacco status: former smoker Quit status (tobacco): has quit using tobacco Year quit tobacco: 2011 - 1PPD x 6 Years Alcohol intake: never Substance/Drug Use: never Lives independently: Yes Household members: spouse and children Current occupational status: employed Do you think of yourself as: Straight/Heterosexual Current gender identity: Male Audra/Yazdanism: Zoroastrianism Physical Exam Const: COMMON NORMALS: no acute distress, average body habitus and patient oriented x3 HENMT: COMMON NORMALS: normocephalic, atraumatic, hearing grossly normal bilaterally, Normal external nose present and moist oral mucous membranes HEAD & SCALP: normocephalic and atraumatic NOSE: Normal external nose present Eye: COMMON NORMALS: Equal, round and reactive pupils present, EOMs intact bilaterally and conjunctivae normal CONJUNCTIVA: Yes conjunctivae normal PUPIL: Yes Equal, round and reactive pupils present Neck/C-Spine: COMMON NORMALS: no JVD Lymph: LYMPHATIC: no lymphadenopathy noted Resp: COMMON NORMALS: normal respiratory effort, No retractions and No use of accessory muscles Cardio: COMMON NORMALS: no JVD, regular rate and regular rhythm RATE: regular rate RHYTHM: regular rhythm GI: COMMON NORMALS: Normal to inspection, nondistended, normoactive bowel sounds present : COMMON NORMALS: Yes no CVA tenderness BLADDER/KIDNEY EXAM: Yes no CVA tenderness Back/Pelvis: COMMON NORMALS: no CVA tenderness and thoraco-lumbar ROM normal Extremity: COMMON NORMALS: normal to inspection, full ROM and capillary refill normal Neuro: COMMON NORMALS: patient oriented x3 CRANIAL NERVES: Yes CN normal except as noted SPEECH: speech normal GAIT: Yes Normal gait present OTHER: Patient shows no signs of any neurological deficit on his examination. Psych: COMMON NORMALS: mental status grossly normal, Normal thought process present, cooperative, normal affect and activity/motor behavior normal THOUGHT PROCESS: Normal thought process present Skin: NARRATIVE SKIN EXAM: Patient has a 2-1/2 cm long laceration to the very top of his head which is not full-thickness. Bleeding is controlled. Minimal wound edge separation only approximately 2 to 3 mm. Procedures Laceration Laceration 1: Site: scalp (top.midline) Size (cm): 2.5 Description: linear Depth: simple, single layer Local Anesthetic: lidocaine 1% and other anesthetic (EMLA) Amount of anesthesia used (mL): 2.5 Pre-repair: wound explored, irrigated extensively and deep structures intact Skin layer closed with: other (dorothy) Number of sutures: 4 Course Vital Signs: Vital signs: Vital Signs Temperature 98.1 F 12/08/22 11:50 Pulse Rate 81 12/08/22 11:50 Respiratory Rate 16 12/08/22 11:50 Blood Pressure 125/85 12/08/22 11:50 Pulse Oximetry 95 12/08/22 11:50 Oxygen Delivery Me thod Room Air 12/08/22 11:50 MDM - Wound/Laceration Medical Decision Making Patient presents today for evaluation treatment of laceration to the top of the head. He admits he is not sure how big it is due to the amount of bleeding and dried blood present. He indicated a lot of discomfort while trying to apply saline so we did apply Emla which resulted in good wound anesthesia. I was able to clean off the wound and saw it was only a linear laceration approximately 2-1/2 cm in length with hardly any wound edge separation and no active bleeding. Given that it would require several dorothy I did administer some local anesthesia which patient tolerated with minimal difficulty. Was able to clean the wound out with Betadine prior to repair. He received 4 dorothy which resulted in good wound edge approximation. Stable and wound care information provided at discharge. He is to have the dorothy removed in approximately 1 week at primary care, urgent care, or back here in the ER. Went over signs and symptoms of concussion and informational handout about head injuries provided for them to continue monitoring for any change in condition at home through the next couple of days. Patient was treated for pain here in the emergency department and reported near complete resolution of any discomfort he arrived with. He may continue at home treatments as well. Patient verbalized understanding and agreement to treatment plan. No radiology studies performed this visit Discharge Plan Discharge Patient Disposition: Home Clinical Impression: Simple laceration of scalp Condition: Stable Prescriptions: No Action (DME) blood-glucose meter [Blood Glucose Monitoring] Kit See Rx Instructions .ROUTE .MEDSUPPLY Qty: 1 0RF Rx Instructions: As directed (DME) blood sugar diagnostic Strip See Rx Instructions .ROUTE .MEDSUPPLY Qty: 100 1RF Rx Instructions: As directed Januvia 50 mg tablet See Rx Instructions .ROUTE .COMPLEX Qty: 90 1RF Dose Instruction: TAKE 1 TABLET BY MOUTH EVERY DAY Rx Instructions: TAKE 1 TABLET BY MOUTH EVERY DAY; ibuprofen 800 mg tablet 800 mg PO Q8H PRN (Reason: pain) Qty: 30 0RF terbinafine HCl 250 mg tablet 250 mg PO DAILY 42 Days Qty: 42 0RF levocetirizine [Xyzal] 5 mg tablet 5 mg PO DAILY Qty: 30 1RF sumatriptan succinate [Imitrex] 100 mg tablet See Rx Instructions PO .COMPLEX Qty: 10 1RF Rx Instructions: take 1 tab at onset of headache; if no relief may repeat 1 tab in 2hr; max = 2 tabs/24 hrs PO Discharge Orders: Discharge ED (Routine); Ordered 12/08/22 Ordered By: Laura Byers Referrals: Siomara Brower FNP [Primary Care Provider] - Discharge Diet: Usual diet Discharge Activity: Increase activity as tolerated Patient Instructions: Concussion (ED), Staple Care (ED) Activity Restrictions/Additional Instructions: While I appreciate no neurological deficit, as we discussed, concussions occur anytime the head is hit and there are residual symptoms involving headache, blurry vision, nausea, vomiting, dizziness... These can last a couple of days or even a couple of weeks. Continue to monitor for any of these to develop over the next 24 to 48 hours. If you develop the most severe headache of your life, dizziness without ability to stand or walk or profuse vomiting we do recommend being seen and reevaluated back here in the emergency department. We recommend washing your wound once or twice a day with warm water and mild soap. You can apply topically antibiotic ointment if necessary. Extremely careful not to catch or snag with dorothy on linens and clothing items. Dorothy need to be removed in approximately 1 week. These can be done at primary care, urgent care, or back here at the emergency department. Coding Level of Care Code ED Flap Curer for Anitha Smith
== END 2022-12-08 15:03 | disposition home or self-care (01) ==
PROVIDERS: Emergency Provider Physician Assistant; PCP Nurse Practitioner Family
DX: S01.01XA Laceration without foreign body of scalp, initial encounter (principal); Z87.891 Personal history of nicotine dependence; Z85.118 Personal history of other malignant neoplasm of bronchus and lung; E78.5 Hyperlipidemia, unspecified; E11.9 Type 2 diabetes mellitus without complications; W20.8XXA Other cause of strike by thrown, projected or falling object, initial encounter
CPT/HCPCS: 12001; 96372; 99284; J1885

== ENCOUNTER 2023-03-20 14:47 | Outpatient (CLI) | payer OTHER, SELFPAY ==
[2023-03-20 15:46] LABS: Alanine Aminotransferase 25 U/L (0-41); Albumin Level 4.6 g/dL (3.5-5.2); Alkaline Phosphatase 60 U/L (40-130); Aspartate Amino Transferase 18 U/L (0-40); Blood Urea Nitrogen 18 mg/dL (6-20); Calcium 9.1 mg/dL (8.5-10.5); Carbon Dioxide 25 mmol/L (22-29); Chloride 99 mmol/L (98-107); Globulin 2.6 g/dL (1.3-4.6); Glomerular Filtration Rate 59.7 mL/min (90-130); Glucose 192 mg/dL (65-115); Osmolality Calculated 289 mOsm/kg (285-295); Sodium 136 mmol/L (136-145); Total Bilirubin 0.2 mg/dL (0.15-1.2); Total Protein 7.2 g/dL (6.6-8.7)
[2023-03-20 15:54] LABS: Estmated Average Glucose 180; Hemoglobin A1C 7.9 % (4.0-6.0)
== END 2023-03-20 14:48 | disposition home or self-care (01) ==
LOC: LAB 14:47
PROVIDERS: PCP Nurse Practitioner Family; Visit Provider Nurse Practitioner Family
DX: E11.9 Type 2 diabetes mellitus without complications (principal)
CPT/HCPCS: 36415; 80053; 83036

== ENCOUNTER 2023-07-02 14:40 | Emergency (ER) | payer OTHER, SELFPAY ==
[2023-07-02 14:44] VITALS: BP 146/89; PULSE 85; RESP 17; O2SAT 93; BMI 25.5
--- NOTE | 2023-07-02 14:46 | W.ED.ABDPA2 ---
HPI - Abdominal Pain General: Chief Complaint: Abdominal Pain Stated Complaint: abd pains Time Seen by Provider: 07/02/23 14:46 Source: patient and family Mode of arrival: ambulatory Limitations: no limitations History of Present Illness: Patient is a nice 48-year-old male presents to ED today along with his significant other for evaluation of right abdominal pain over the past 6 days or so. He states pain has been fairly constant with exacerbations. He has noticed occasional urinary urgency with occasional incontinence. Other times he seems to go normally. He has had a few episodes during abdominal pain exacerbations where he gets the immediate urge to defecate and will have diarrhea. He has not had fevers. Complains of nausea but has not had any episodes of vomiting. No fevers. No previous abdominal surgeries. He is not having any testicular pain, redness, swelling. No rectal pain. No penile pain. MD elicited complaint: abdominal pain Pertinent past history: none Onset (ago): day(s) Pain Consistency: constant Location: RUQ and RLQ Severity: severe Quality: stabbing and sharp Radiation: none Migration to: no migration Exacerbating factors: nothing Relieving factors: nothing Associated Symptoms: Reports diarrhea and nausea; Denies chills, dysuria, fever(s), heartburn, hematochezia, hematuria, hematemesis, melena and vomiting Review of Systems Const: Denies: fever(s), chills, body aches, fatigue or malaise Card: Denies: chest pain Resp: Denies: dyspnea GI: Reports: abdominal pain, nausea and diarrhea; Denies: vomiting, hematemesis, heartburn, hematochezia or melena : Reports: urinary urgency and urinary incontinence; Denies: flank pain, difficulty urinating, dysuria, hematuria or testicular pain Musc: Denies: neck pain, back pain, extremity pain, extremity swelling, joint pain or joint swelling Skin/Breast: Denies: rash Neuro: Denies: headache(s), numbness in extremities, weakness in extremities, sensory changes or dizziness [facility] ED PFSH: Medical History Hyperlipidemia Shingles outbreak Type 2 diabetes mellitus without complication Migraines Hx of cancer of lung Surgical History History of colonoscopy 2013 Hx of shoulder surgery H/O neck surgery History of hip surgery History of lung surgery History of repair of ACL History of lumbosacral spine surgery Family History Grandmother Stroke Dementia Hyperlipidemia Grandfather Diabetes Mother Hyperlipidemia Other Cancer Denies family history of CAD (coronary artery disease) Chronic kidney disease (CKD) Anesthesia complication Bleeding disorder Lung disease Hypertension Social History Smoking and tobacco/nicotine status: former use of tobacco/nicotine Quit status (tobacco/nicotine): has quit using Year quit tobacco: 2012 - 1PPD x 6 Years Alcohol intake: never Substance/Drug Use: never Lives independently: Yes Household members: spouse and children Current occupational status: employed Do you think of yourself as: Straight/Heterosexual Current gender identity: Male Audra/Yazdanism: Religious Physical Exam Const: COMMON NORMALS: no acute distress, average body habitus, patient oriented x3, no limitations, healthy appearing, alert and well nourished Eye: COMMON NORMALS: no scleral icterus Resp: COMMON NORMALS: normal respiratory effort and clear to auscultation bilaterally AUSCULTATION: clear to auscultation bilaterally Cardio: COMMON NORMALS: regular rate and regular rhythm RATE: regular rate RHYTHM: regular rhythm GI: COMMON NORMALS: Normal to inspection, nondistended, normoactive bowel sounds present, Soft to palpation, No hepatosplenomegaly present and no masses INSPECTION: Yes normal to inspection AUSCULTATION: Yes normoactive bowel sounds PALPATION: Yes Soft to palpation, Yes Tenderness to palpation present (GI) (throughout R side of abdomen), Yes Guarding due to palpation present (GI), No Rigid due to palpation and Yes No hepatosplenomegaly present : COMMON NORMALS: Yes no CVA tenderness BLADDER/KIDNEY EXAM: Yes no CVA tenderness Back/Pelvis: COMMON NORMALS: no CVA tenderness and thoracic and lumbar spine normal to inspection Extremity: COMMON NORMALS: normal to inspection GENERAL: Yes normal exam except as noted Neuro: COMMON NORMALS: patient oriented x3, moves all extremities, no focal motor deficits, no sensory deficits noted and gait normal SENSORIUM/ORIENTATION: Yes alert Skin: COMMON NORMALS: no rashes or lesions noted GENERAL SKIN EXAM: no rashes or lesions noted Course Vital Signs: Vital signs: Vital Signs Pulse Rate 85 07/02/23 14:44 Respiratory Rate 17 07/02/23 15:38 Blood Pressure 146/89 07/02/23 14:44 Pulse Oximetry 98 07/02/23 15:38 MDM - Abdominal Pain Medical Decision Making Patient's vital signs are stable. His blood work overall is nonactionable. His glucose is elevated at 380. Patient states his last hemoglobin A1c was good and trending down . LFTs are normal. UA is clear. CT scan with several mentioned incidental findings but no acute process seen. Radiologist did comment on his prostate looking mildly heterogeneous and lobular and prominent. I think prostatitis is unlikely. He does have a strong family history of prostate cancer. Recommend he follow-up with PCP for PSA testing. Return to ED precautions given. Lab Data 07/02/23 15:10 07/02/23 15:10 Labs/Radiology: Radiology Impressions Abdomen/Pelvis CT 07/02/23 15:03 IMPRESSION: No acute process seen. Please see body of report for findings. Laboratory Results WBC 4.93 10^3/uL (3.29-11.43) 07/02/23 15:10 RBC 4.76 10^6/uL (3.85-5.65) 07/02/23 15:10 Hgb 14.50 g/dL (11.27-16.99) 07/02/23 15:10 Hct 42.2 % (37-53) 07/02/23 15:10 MCV 88.7 fl (82-101) 07/02/23 15:10 MCH 30.5 pg (27-33) 07/02/23 15:10 MCHC 34.4 g/dL (30-55) 07/02/23 15:10 RDW 11.8 % (12.1-15.1) L 07/02/23 15:10 Plt Count 277 10^3/cmm (157-399) 07/02/23 15:10 MPV 10.2 fL (7.4-10.4) 07/02/23 15:10 Neut % (Auto) 54.4 % 07/02/23 15:10 Lymph % (Auto) 33.3 % 07/02/23 15:10 Keith % (Auto) 5.9 % 07/02/23 15:10 Eos % (Auto) 3.0 % 07/02/23 15:10 Baso % (Auto) 3.0 % 07/02/23 15:10 Neut # (Auto) 2.68 10^3/uL (1.8-7.7) 07/02/23 15:10 Lymph # (Auto) 1.6 10^3/uL (0.8-4.8) 07/02/23 15:10 Keith # (Auto) 0.3 10^3/uL (0.2-0.9) 07/02/23 15:10 Eos # (Auto) 0.2 10^3/uL (0.0-0.8) 07/02/23 15:10 Baso # (Auto) 0.2 10^3/uL (0.0-0.1) H 07/02/23 15:10 Nucleated RBC % (auto) 0 % 07/02/23 15:10 Nucleated RBCs # 0.0 /100WBC 07/02/23 15:10 Sodium 133 mmol/L (136-145) L 07/02/23 15:10 Potassium 3.9 mmol/L (3.5-5.1) 07/02/23 15:10 Chloride 96 mmol/L (98-107) L 07/02/23 15:10 Carbon Dioxide 25 mmol/L (22-29) 07/02/23 15:10 Anion Gap 15.9 (5-19) 07/02/23 15:10 BUN 19 mg/dL (6-20) 07/02/23 15:10 Creatinine 0.9 mg/dL (0.7-1.2) 07/02/23 15:10 GFR Calculation 90.8 mL/min (90-130) 07/02/23 15:10 Glucose 380 mg/dL (65-115) H 07/02/23 15:10 Calculated Osmolality 294 mOsm/kg (285-295) 07/02/23 15:10 Calcium 9.4 mg/dL (8.5-10.5) 07/02/23 15:10 Total Bilirubin 0.3 mg/dL (0.15-1.2) 07/02/23 15:10 AST 23 U/L (0-40) 07/02/23 15:10 ALT 26 U/L (0-41) 07/02/23 15:10 Alkaline Phosphatase 74 U/L (40-130) 07/02/23 15:10 Total Protein 6.9 g/dL (6.6-8.7) 07/02/23 15:10 Albumin 4.4 g/dL (3.5-5.2) 07/02/23 15:10 Globulin 2.5 g/dL (1.3-4.6) 07/02/23 15:10 Lipase 35 U/L (13-60) 07/02/23 15:10 Urine Color Straw (Yellow) 07/02/23 16:06 Urine Appearance Clear (CLEAR) 07/02/23 16:06 Urine pH 7 (5-7) 07/02/23 16:06 Ur Specific [place] 1.005 (1.005-1.030) 07/02/23 16:06 Urine Protein Neg (Negative) 07/02/23 16:06 Urine Glucose (UA) 4+ (Normal) H 07/02/23 16:06 Urine Ketones 1+ (Negative) H 07/02/23 16:06 Urine Blood Neg (Negative) 07/02/23 16:06 Urine Nitrate Negative (Negative) 07/02/23 16:06 Urine Bilirubin Neg (Negative) 07/02/23 16:06 Urine Urobilinogen Norm mg/dL (Negative) 07/02/23 16:06 Ur Leukocyte Esterase Negative (Negative) 07/02/23 16:06 All radiology interpretation(s) finalized by discharge Discharge Plan Discharge Patient Disposition: Home Clinical Impression: Family hx of prostate cancer, Abdominal pain, acute, right lower quadrant Condition: Stable Prescriptions: No Action (DME) blood-glucose meter [Blood Glucose Monitoring] Kit See Rx Instructions .ROUTE .MEDSUPPLY Qty: 1 0RF Rx Instructions: As directed (DME) blood sugar diagnostic Strip See Rx Instructions .ROUTE .MEDSUPPLY Qty: 100 1RF Rx Instructions: As directed Januvia 50 mg tablet 50 mg PO DAILY Discharge Orders: Discharge ED (Routine); Ordered 07/02/23 Ordered By: Chio Jackson Referrals: Siomara Brower FNP [Primary Care Provider] - Patient Instructions: Abdominal Pain (ED) Activity Restrictions/Additional Instructions: As we discussed your workup today did not show any obvious etiology for your discomfort. I would like you to follow-up with your primary care provider. We discussed following up with her for further evaluation of your family history of prostate cancer. You need to return to the emergency department for severe abdominal pain, worsening urinary urgency, frequency, incontinence, fevers, generally feeling worse or unwell, cloudy urine, or any other concerns you may have. Coding Level of Care Code ED Data Manager for Anitha Smith
--- NOTE | 2023-07-02 15:03 | CTR_ITS ---
PROCEDURE INFORMATION: Exam: CT Abdomen And Pelvis With Contrast Exam date and time: 07/02/2023 3:21 PM Age: 48 years old Clinical indication: Abdominal pain; Localized; Right; Additional info: R sided abdominal pain TECHNIQUE: Imaging protocol: Computed tomography of the abdomen and pelvis with contrast. Radiation optimization: All CT scans at this facility use at least one of these dose optimization techniques: automated exposure control; mA and/or kV adjustment per patient size (includes targeted exams where dose is matched to clinical indication); or iterative reconstruction. Contrast material: OMNI 350; Contrast volume: 100 ml; Contrast route: INTRAVENOUS (IV); COMPARISON: CT abdomen pelvis w con* [id number] 09/21/2020 10:28 PM RADIATION DOSE METRICS: Total DLP (mGy-cm): 656 FINDINGS: Lungs: Stable appearance right lung base, lower right hemithorax, dome right hemidiaphragm. Stomach appears filled with debris, fluid, gas. Bowel pattern appears nonobstructive. Esophagus: Mild wall thickening distal esophagus. Liver: Liver unremarkable. Gallbladder and bile ducts: Gallbladder appears small, contracted. No bile duct dilatation seen. Pancreas: Pancreas unremarkable. Spleen: Spleen unremarkable. Adrenal glands: Adrenals unremarkable. Kidneys and ureters: Kidneys unremarkable. Mild left perinephric stranding similar to prior study. No calcific stones seen of visualized portions ureters bilaterally, nor urinary bladder. No dilation seen of visualized portions ureters bilaterally. Stomach and bowel: Moderate stool and gas of the colon. Appendix: No acute appendicitis seen. Intraperitoneal space: No free intraperitoneal air and no free or pelvic fluid collections seen. Vasculature: No aneurysm and no dissection seen abdominal aorta. Lymph nodes: Scattered small lymph nodes, nonspecific. Urinary bladder: Urinary bladder appears full, distended. Reproductive: Prostate appears mildly heterogeneous, mildly lobular, mildly prominent. Seminal vesicles unremarkable. Bones/joints: Degenerative changes, endplate irregularities spine. Soft tissues: Tiny fat containing umbilical/paraumbilical hernia. CT/CT abdomen pelvis w con* [id number] IMPRESSION: No acute process seen. Please see body of report for findings.
[2023-07-02 15:18] LABS: Basophils # 0.2 10^3/uL (0.0-0.1); Eosinophils # 0.2 10^3/uL (0.0-0.8); Hematocrit 42.2 % (37-53); Lymphocytes # 1.6 10^3/uL (0.8-4.8); Lymphocytes % 33.3 %; Mean Corpuscular HGB Conc 34.4 g/dL (30-55); Mean Corpuscular Hemoglobin 30.5 pg (27-33); Mean Corpuscular Volume 88.7 fl (82-101); Mean Platelet Volume 10.2 fL (7.4-10.4); Monocytes # 0.3 10^3/uL (0.2-0.9); Monocytes % 5.9 %; Neutrophils # 2.68 10^3/uL (1.8-7.7); Neutrophils % 54.4 %; Nucleated Red Blood Cells % 0 %; Platelet Count 277 10^3/cmm (157-399); Red Blood Count 4.76 10^6/uL (3.85-5.65); Red Cell Distribution Width 11.8 % (12.1-15.1); White Blood Count 4.93 10^3/uL (3.29-11.43)
[2023-07-02] MEDS: iohexol 350 mg/mL 500 mL Btl (per mL) IV (15:21)
--- NOTE | 2023-07-02 15:24 | PC.PHAR ---
PT STATES HE ONLY TAKES JANUVIA 50 MG DAILY. DC'D SEVERAL MEDS ON FILE: OTC LEVOCETIRIZINE 5 MG, PROPRANOLOL ER 60MG 06/08/23 30DS, HYDROXYZINE HCI 25MG 04/13/23 30DS, AND ALBUTEROL INHALER 05/23/23 16DS.
[2023-07-02 15:36] LABS: Albumin Level 4.4 g/dL (3.5-5.2); Alkaline Phosphatase 74 U/L (40-130); Blood Urea Nitrogen 19 mg/dL (6-20); Calcium 9.4 mg/dL (8.5-10.5); Carbon Dioxide 25 mmol/L (22-29); Chloride 96 mmol/L (98-107); Creatinine Clr Calc Pharmacy 113.7034; Globulin 2.5 g/dL (1.3-4.6); Glomerular Filtration Rate 90.8 mL/min (90-130); Glucose 380 mg/dL (65-115); Lipase 35 U/L (13-60); Osmolality Calculated 294 mOsm/kg (285-295); Sodium 133 mmol/L (136-145); Total Bilirubin 0.3 mg/dL (0.15-1.2); Total Protein 6.9 g/dL (6.6-8.7)
[2023-07-02 15:38] VITALS: RESP 17; O2SAT 98
[2023-07-02] MEDS: sodium chloride 0.9% 1,000 ML 999 ML IV (15:38)
[2023-07-02] MEDS: morphine 4 mg/mL SDV 1 mL IVP (15:38)
[2023-07-02] MEDS: ondansetron 2 mg/ML SDV 2 mL 4 MG IVP (15:38)
[2023-07-02 15:39] LABS: Anion Gap 15.9 (5-19); Potassium 3.9 mmol/L (3.5-5.1)
[2023-07-02 15:52] LABS: Alanine Aminotransferase 26 U/L (0-41)
[2023-07-02 15:57] LABS: Aspartate Amino Transferase 23 U/L (0-40)
[2023-07-02 16:18] LABS: Add Urine Microscopic? NO; Charge for UA Resulting for Rev
[2023-07-02 16:28] LABS: Bilirubin Urine Neg (Negative); Blood Urine Neg (Negative); Glucose Urine UA 4+ (Normal); Ketones Urine 1+ (Negative); Leukocyte Esterase Urine Negative (Negative); Nitrate Urine Negative (Negative); Protein Urine Neg (Negative); Specific Gravity, Urine 1.005 (1.005-1.030); Urine Appearance Clear (CLEAR); Urine Color Straw (Yellow); Urobilinogen Urine Norm (Negative); pH Urine 7 (5-7)
== END 2023-07-02 16:57 | disposition home or self-care (01) ==
PROVIDERS: Emergency Medicine; Emergency Provider Physician Assistant; PCP Nurse Practitioner Family
DX: R10.31 Right lower quadrant pain (principal); Z80.42 Family history of malignant neoplasm of prostate; Z87.891 Personal history of nicotine dependence; E78.5 Hyperlipidemia, unspecified; E11.9 Type 2 diabetes mellitus without complications; Z85.118 Personal history of other malignant neoplasm of bronchus and lung
CPT/HCPCS: 36415; 74177; 80053; 81003; 83690; 85025; 96374; 96375; 99285; J2270; J2405; J7030; Q9967

== ENCOUNTER → 2023-07-12 08:17 | Outpatient (BNVA) | payer OTHER, SELFPAY | PROVIDERS: PCP Nurse Practitioner Family; Visit Provider Nurse Practitioner Family | DX: N40.0 Benign prostatic hyperplasia without lower urinary tract symptoms (principal) | CPT/HCPCS: G0103 ==

== ENCOUNTER 2023-09-11 20:15 | Emergency (ER) | payer OTHER, SELFPAY ==
[2023-09-11 20:27] VITALS: BP 158/97; PULSE 79; RESP 16; TEMP 36.6; O2SAT 98
--- NOTE | 2023-09-11 20:46 | XRR_ITS ---
PROCEDURE INFORMATION: Exam: XR Cervical Spine Exam date and time: 09/11/2023 8:52 PM Age: 48 years old Clinical indication: Neck pain; Prior surgery; Surgery date: 6+ months; Surgery type: C. Spine 2010; Additional info: Pain/post-fusion TECHNIQUE: Imaging protocol: Radiologic exam of the cervical spine. Views: 2 or 3 views. COMPARISON: CR XR cervical spine 3V* [id number] 08/14/2022 10:45 AM FINDINGS: Bones/joints: Status post anterior and interbody fusion at the C5-C6 and C6-C7 levels. There is an anterior plate and screw fixation device in place. Hardware appears intact without obvious complication. There appears to be complete osseous fusion across the C5-C6 and C6-C7 levels. There are degenerative changes throughout the visualized spine including marginal osteophyte formations, endplate degenerative changes, and facet arthropathy. Multilevel disc space narrowing. Soft tissues: Unremarkable. XR/XR cervical spine 3V* [id number] IMPRESSION: There are degenerative and postoperative changes in the cervical spine. No evidence for acute fracture.
[2023-09-11] MEDS: dexamethasone 10 mg/mL INJ IM (21:13)
[2023-09-11] MEDS: orphenadrine 30 mg/mL Inj 2 mL 60 MG IM (21:15)
[2023-09-11] MEDS: ketorolac 60 mg/2 mL INJ IM (21:16)
[2023-09-11 21:25] VITALS: BP 152/103; PULSE 74; RESP 16; O2SAT 96
--- NOTE | 2023-09-11 21:47 | ED_ITS ---
HPI - Neck Pain/Injury General: Chief Complaint: Neck Pain/Injury Stated Complaint: Neck and head pain Time Seen by Provider: 09/11/23 20:33 Source: patient Mode of arrival: ambulatory Limitations: no limitations History of Present Illness: Patient is a 48-year-old male who presents to the emergency department complaining of neck pain onset tonight. Patient states he was in the shower and had sudden onset of the neck pain, that is to his bilateral paracervical muscles with radiation to his anterior neck. He notes a history of multiple head injuries that have caused him issues, and currently he is undergoing workup through [employer]. This has seen him have delayed care due to the legality process, and states he has just been dealing with his neck pain since. He notes that he is having an associated headache, and he is unable to move his neck. Has not taken anything for his pain or symptoms at this time. He states that he has had this happen in the past, just never this severe. States that his next follow-up appointment is not until December. He is denying any visual changes, focal sensory deficits, or other neurological complaints at this time. He also notes a history of cervical fusion. MD complaint: neck pain Onset (ago): minute(s) Place: home Radiation: right lateral, left lateral and head Severity: severe and similar to prior neck pain Duration: constant Relieving factors: none Exacerbating factors: movement of neck Context: other (Atraumatic, history of head injuries) Associated symptoms: Reports headache(s); Denies nausea Review of Systems General: Reports: 10 or more systems reviewed and unremarkable except in HPI and below Const: Denies: fever(s) or chills Card: Denies: chest pain Resp: Denies: dyspnea or productive cough GI: Denies: abdominal pain, nausea, vomiting or diarrhea : Denies: flank pain Musc: Reports: neck pain and limited range of motion; Denies: back pain, extremity pain, extremity swelling, joint pain, joint swelling, joint redness, joint warmth or muscle weakness Skin/Breast: Denies: rash Neuro: Reports: headache(s); Denies: numbness in extremities or weakness in extremities PFS ED PFSH: Medical History 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 Hyperlipidemia Shingles outbreak Type 2 diabetes mellitus without complication Migraines Hx of cancer of lung Surgical History History of colonoscopy 2012 Hx of shoulder surgery H/O neck surgery History of hip surgery History of lung surgery History of repair of ACL History of lumbosacral spine surgery Family History Grandmother Stroke Dementia Hyperlipidemia Grandfather Diabetes Mother Hyperlipidemia Other Cancer Denies family history of CAD (coronary artery disease) Chronic kidney disease (CKD) Anesthesia complication Bleeding disorder Lung disease Hypertension Social History Smoking and tobacco/nicotine status: former use of tobacco/nicotine Quit status (tobacco/nicotine): has quit using Year quit tobacco: 2012 - 1PPD x 6 Years Alcohol intake: never Substance/Drug Use: never Lives independently: Yes Household members: spouse and children Current occupational status: employed Do you think of yourself as: Straight/Heterosexual Current gender identity: Male Audra/Anabaptism: Sikhism Physical Exam Const: COMMON NORMALS: patient oriented x3, no limitations, healthy appearing, alert and well nourished OTHER: He does appear uncomfortable laying in bed at this time, unwilling to rotate head laterally HENMT: COMMON NORMALS: normocephalic and atraumatic HEAD & SCALP: normocephalic and atraumatic Neck/C-Spine: COMMON NORMALS: full ROM, supple and no meningeal signs GENERAL: Yes normal visual inspection CERVICAL SPINE: Yes normal cervical lordosis, Yes cervical ROM abnormal (Pain with range of motion in any direction, is very stiff), No Cervical spine tenderness and Yes Paracervical muscle tenderness left>right Chest: COMMONS NORMALS: normal inspection of the chest Resp: COMMON NORMALS: normal respiratory effort, No use of accessory muscles and clear to auscultation bilaterally AUSCULTATION: clear to auscultation bilaterally Cardio: COMMON NORMALS: regular rate and regular rhythm RATE: regular rate RHYTHM: regular rhythm Extremity: COMMON NORMALS: normal to inspection, full ROM, capillary refill normal, no joint enlargement and no clubbing, cyanosis or edema Neuro: COMMON NORMALS: patient oriented x3, CN's II-XII intact bilaterally, moves all extremities, no focal motor deficits and no sensory deficits noted SENSORIUM/ORIENTATION: Yes alert MENINGEAL SIGNS: Yes no meningeal signs Skin: COMMON NORMALS: no rashes or lesions noted GENERAL SKIN EXAM: no rashes or lesions noted Course Vital Signs: Vital signs: Vital Signs Temperature 97.8 F 09/11/23 20:27 Pulse Rate 80 09/11/23 22:24 Respiratory Rate 16 09/11/23 22:24 Blood Pressure 139/92 09/11/23 22:24 Pulse Oximetry 95 09/11/23 22:24 Oxygen Delivery Me thod Room Air 09/11/23 21:25 MDM - Neck Pain/Injury Medical Decision Making Patient presented for acute on chronic neck pain, did report history of multiple injuries. Currently is undergoing a legal saab in terms of seeking specialist treatment as he is back and forth between [employer]. and other issues. However he did note acute onset of atraumatic neck pain tonight. He is unable to rotate the neck laterally on physical examination, and does have reproducible tenderness to palpation. History of cervical fusion surgery. Vitals were normal on arrival. X-ray did not demonstrate any acute hardware abnormalities or fractures. Were some degenerative changes noted. Patient was given a shot of Decadron, Norflex, and Toradol, and upon recheck states he does feel better, however he feels tired. I will send prescriptions for these and due to no acute abnormalities on imaging, will refer him to pain management and Ortho here in an attempt to expedite his currently scheduled appointment for December. I did encourage him to do gentle range of motion exercises of the neck muscles and apply heat. Return precautions are given to the patient, and a work note is provided for delegated tasks. Lab Data Radiology Impressions Cervical Spine X-Ray 09/11/23 20:46 IMPRESSION: There are degenerative and postoperative changes in the cervical spine. No evidence for acute fracture. All radiology interpretation(s) finalized by discharge Discharge Plan Discharge Patient Disposition: Home Clinical Impression: Chronic neck pain Condition: Stable Prescriptions: New prednisone 20 mg tablet 60 mg PO ONCE 5 Days Qty: 15 0RF ketorolac 10 mg tablet 10 mg PO Q8H PRN (Reason: pain) Qty: 15 0RF methocarbamol 750 mg tablet 750 mg PO Q8H 5 Days Qty: 15 0RF No Action (DME) blood-glucose meter [Blood Glucose Monitoring] Kit See Rx Instructions .ROUTE .MEDSUPPLY Qty: 1 0RF Rx Instructions: As directed (DME) blood sugar diagnostic Strip See Rx Instructions .ROUTE .MEDSUPPLY Qty: 100 1RF Rx Instructions: As directed azithromycin 250 mg tablet See Rx Instructions PO .COMPLEX Qty: 6 0RF Rx Instructions: For 250 mg dose pack: take 500 mg today (day 1), then 250 mg for 4 days (days 2-5) PO albuterol sulfate [ProAir HFA] 90 mcg/actuation HFA aerosol inhaler 2 puff inhalation 6XD PRN (Reason: shortness of breath or wheezing) Qty: 8.5 0RF prednisone 20 mg tablet 20 mg PO DAILY 7 Days Qty: 7 0RF Januvia 50 mg tablet 50 mg PO DAILY Qty: 90 0RF Discharge Orders: Discharge ED (Routine); Ordered 09/11/23 Ordered By: Carlos Pak Referrals: Siomara Brower FNP [Primary Care Provider] - Discharge Diet: Usual diet Discharge Activity: Increase activity as tolerated Patient Instructions: Pain Management Activity Restrictions/Additional Instructions: Follow-up with orthopedics and pain management as discussed. Take medications at home as prescribed. Gentle range of motion exercises as tolerated. Return with any new or concerning symptoms. Coding Level of Care Code ED Licensed Direct Entry Midwife for Anitha Smith
[2023-09-11 22:24] VITALS: BP 139/92; PULSE 80; RESP 16; O2SAT 95
--- NOTE | 2023-09-12 11:45 | DCPLANNER ---
messaged ortho and pain management for er f/u
== END 2023-09-11 22:25 | disposition home or self-care (01) ==
PROVIDERS: Emergency Provider Physician Assistant; PCP Nurse Practitioner Family
DX: G89.29 Other chronic pain (principal); M54.2 Cervicalgia; Z87.891 Personal history of nicotine dependence; E78.5 Hyperlipidemia, unspecified; E11.9 Type 2 diabetes mellitus without complications; Z85.118 Personal history of other malignant neoplasm of bronchus and lung
CPT/HCPCS: 72040; 96372; 99284; J1100; J1885; J2360

== ENCOUNTER 2023-10-22 18:06 | Emergency (ER) | payer OTHER, SELFPAY ==
[2023-10-22 18:11] VITALS: BP 144/73; PULSE 77; TEMP 36.5; O2SAT 98; BMI 24.8
--- NOTE | 2023-10-22 18:39 | CTR_ITS ---
PROCEDURE INFORMATION: Exam: CT Abdomen And Pelvis With Contrast Exam date and time: 10/22/2023 7:22 PM Age: 48 years old Clinical indication: Abdominal pain; Localized; Right lower quadrant (rlq) TECHNIQUE: Imaging protocol: Computed tomography of the abdomen and pelvis with contrast. Radiation optimization: All CT scans at this facility use at least one of these dose optimization techniques: automated exposure control; mA and/or kV adjustment per patient size (includes targeted exams where dose is matched to clinical indication); or iterative reconstruction. Contrast material: OMNI 350; Contrast volume: 100 ml; Contrast route: INTRAVENOUS (IV); COMPARISON: CT abdomen pelvis w con* [id number] 07/02/2023 3:21 PM RADIATION DOSE METRICS: Total DLP (mGy-cm): 567 FINDINGS: Lungs: Mild atelectasis versus scarring of the right lung base. Liver: Normal. No mass. Gallbladder and biliary ducts: Normal. No calcified stones. No ductal dilation. Pancreas: Normal. No ductal dilation. Spleen: Normal. No splenomegaly. Adrenal glands: Normal. No mass. Kidneys and ureters: Normal. No hydronephrosis. Stomach and bowel: Unremarkable. No obstruction. No mucosal thickening. Appendix: No evidence of appendicitis. Intraperitoneal space: Unremarkable. No free air. No significant fluid collection. Vasculature: Unremarkable. No abdominal aortic aneurysm. Lymph nodes: Unremarkable. No enlarged lymph nodes. Urinary bladder: Unremarkable as visualized. Reproductive: Unremarkable as visualized. Bones/joints: Mild multilevel spondylosis. No acute fracture. Soft tissues: Unremarkable. CT/CT abdomen pelvis w con* [id number] IMPRESSION: No acute findings within the abdomen or pelvis.
--- NOTE | 2023-10-22 18:53 | W.ED.ABDPA2 ---
HPI - Abdominal Pain General: Chief Complaint: Abdominal Pain Stated Complaint: Possible Append Time Seen by Provider: 10/22/23 18:40 Source: patient Mode of arrival: ambulatory Limitations: no limitations History of Present Illness: Patient is a 48-year-old male with past medical history of lung cancer and diabetes who presents to the emergency department complaining of right lower quadrant abdominal pain for the past week and a half. Pain initially was intermittent, now as of today has been constant and severe. He is also reporting associated diarrhea as well as nausea. Still has his appendix and gallbladder. Has not taken anything for his pain. He does not report any specific alleviating or exacerbating factors. He does report surgical history of lymph node removal in his chest as well as a portion of his lung. He is not having any fevers, no vomiting, no chest pain or shortness of breath, and no other symptoms to report at this time. On arrival he is noted to be afebrile breathing comfortably on room air. MD elicited complaint: abdominal pain Onset (ago): week(s) Pain Consistency: intermittent (Now constant today) Location: RLQ Severity: severe Radiation: none Exacerbating factors: nothing Relieving factors: nothing Associated Symptoms: Reports diarrhea and nausea; Denies bloating, change in stool character, chills, constipation, dysuria, fever(s), hematochezia and vomiting Related Data Previous Rx's Medication Instructions Recorded blood sugar diagnostic #100 ea 07/02/19 blood-glucose meter (Blood Glucose #1 ea 07/02/19 Monitoring kit) albuterol sulfate 90 mcg/actuation 2 puff inhalation 6XD PRN 07/12/23 aerosol inhaler (ProAir HFA) shortness of breath or wheezing #8.5 grams azithromycin 250 mg tablet See Rx Instructions PO .COMPLEX #6 07/12/23 tabs prednisone 20 mg tablet 20 mg PO DAILY 7 days #7 tabs 07/12/23 sitagliptin phosphate 50 mg tablet 50 mg PO DAILY #90 tabs 07/23/23 (Januvia) ketorolac 10 mg tablet 10 mg PO Q8H PRN pain #15 tabs 09/11/23 Allergies Allergy/AdvReac Type Severity Reaction Status Date / Time acetaminophen [From Vicodin] AdvReac Intermediate ADR-Vomitin Verified 10/22/23 18:15 g hydrocodone [From Vicodin] AdvReac Intermediate ADR-Vomitin Verified 10/22/23 18:15 g Review of Systems General: Reports: 10 or more systems reviewed and unremarkable except in HPI and below Const: Denies: fever(s), chills, change in appetite, change in weight or diaphoresis ENMT: Denies: throat pain or hoarseness Card: Denies: chest pain, palpitations or lightheadedness Resp: Denies: dyspnea, productive cough or wheezing GI: Reports: abdominal pain, nausea and diarrhea; Denies: vomiting, constipation, bloating, change in stool character or hematochezia : Denies: flank pain, difficulty urinating, dysuria, urinary frequency or urinary urgency Musc: Denies: neck pain or back pain Skin/Breast: Denies: rash or new lesions Neuro: Denies: headache(s) or dizziness PFSH ED PFSH: Medical History 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 Hyperlipidemia Shingles outbreak Type 2 diabetes mellitus without complication Migraines Hx of cancer of lung Surgical History History of colonoscopy 2012 Hx of shoulder surgery H/O neck surgery History of hip surgery History of lung surgery History of repair of ACL History of lumbosacral spine surgery Family History Grandmother Stroke Dementia Hyperlipidemia Grandfather Diabetes Mother Hyperlipidemia Other Cancer Denies family history of CAD (coronary artery disease) Chronic kidney disease (CKD) Anesthesia complication Bleeding disorder Lung disease Hypertension Social History Smoking and tobacco/nicotine status: former use of tobacco/nicotine Quit status (tobacco/nicotine): has quit using Year quit tobacco: 2012 - 1PPD x 6 Years Alcohol intake: never Substance/Drug Use: never Lives independently: Yes Household members: spouse and children Current occupational status: employed Do you think of yourself as: Straight/Heterosexual Current gender identity: Male Audra/Sabianism: Anabaptism Physical Exam Const: COMMON NORMALS: no acute distress, average body habitus, patient oriented x3, no limitations, healthy appearing, alert and well nourished GENERAL APPEARANCE: cooperative and comfortable ORIENTATION/CONSCIOUSNESS: Yes awake HENMT: COMMON NORMALS: normocephalic, atraumatic, hearing grossly normal bilaterally, external ears normal, Normal external nose present, Normal nasal mucous membranes and turbinates present and moist oral mucous membranes HEAD & SCALP: normocephalic and atraumatic NOSE: Normal external nose present and Normal nasal mucous membranes and turbinates present EXTERNAL EAR: Yes external ears normal Eye: COMMON NORMALS: Equal, round and reactive pupils present, EOMs intact bilaterally, conjunctivae normal and normal visual meredith by confrontation CONJUNCTIVA: Yes conjunctivae normal PUPIL: Yes Equal, round and reactive pupils present Neck/C-Spine: COMMON NORMALS: full ROM, supple, no meningeal signs and no JVD Resp: COMMON NORMALS: normal respiratory effort, No retractions, No use of accessory muscles and clear to auscultation bilaterally AUSCULTATION: clear to auscultation bilaterally, no crackles, no rales, no rhonchi and no wheezes Cardio: COMMON NORMALS: no JVD, regular rate, regular rhythm, S1 normal heart sound present, S2 normal heart sound present, No gallops present (Cardio), No clicks present (Cardio), No murmurs present (Cardio), No rub (Cardio) and Peripheral pulses 2+ throughout RATE: regular rate RHYTHM: regular rhythm HEART SOUNDS: S1 normal heart sound present and S2 normal heart sound present PERIPHERAL PULSES: Peripheral pulses 2+ throughout GI: COMMON NORMALS: Normal to inspection, nondistended, normoactive bowel sounds present, Soft to palpation, No hepatosplenomegaly present and no masses AUSCULTATION: Yes normoactive bowel sounds PALPATION: Yes Soft to palpation, Yes Tenderness to palpation present (GI) (Positive Rovsing, positive McBurney's point tenderness) Details: RLQ, No Guarding due to palpation present (GI), No Rigid due to palpation and Yes No hepatosplenomegaly present RECTAL EXAM: Yes deferred : COMMON NORMALS: Yes no CVA tenderness BLADDER/KIDNEY EXAM: Yes no CVA tenderness Back/Pelvis: COMMON NORMALS: no CVA tenderness Extremity: COMMON NORMALS: normal to inspection and full ROM Neuro: COMMON NORMALS: patient oriented x3, moves all extremities, no focal motor deficits and no sensory deficits noted SENSORIUM/ORIENTATION: Yes alert MENINGEAL SIGNS: Yes no meningeal signs Psych: COMMON NORMALS: mental status grossly normal, cooperative and speech normal SPEECH: Yes normal speech Skin: COMMON NORMALS: no rashes or lesions noted GENERAL SKIN EXAM: no rashes or lesions noted Course Vital Signs: Vital signs: Vital Signs Temperature 97.7 F 10/22/23 18:11 Pulse Rate 67 10/22/23 20:35 Respiratory Rate 16 10/22/23 20:35 Blood Pressure 115/77 10/22/23 20:35 Pulse Oximetry 97 10/22/23 20:35 Oxygen Delivery Me thod Room Air 10/22/23 20:00 MDM - Abdominal Pain Medical Decision Making Patient presented with right lower quadrant abdominal pain initially intermittent for the past week and a half, has been constant today. Still has his appendix and gallbladder. His vitals were normal on arrival. Did have some positive McBurney's point tenderness and did elicit positive Rovsing sign. His lab work was unremarkable. Additionally his CT was unremarkable and specifically did not show any signs of an appendicitis. Because of these findings, we will refer the patient to his primary care for further outpatient testing and potential more invasive examination with colonoscopy. It is also likely that this could be a musculoskeletal injury, and did encourage patient to start taking Tylenol and ibuprofen. Strict return precautions were given. This case discussed with Dr. Sterling who agrees with disposition at this time. Lab Data 10/22/23 18:54 10/22/23 18:54 Labs/Radiology: Radiology Impressions Abdomen/Pelvis CT 10/22/23 18:39 IMPRESSION: No acute findings within the abdomen or pelvis. Laboratory Results WBC 5.03 10^3/uL (3.29-11.43) 10/22/23 18:54 RBC 5.06 10^6/uL (3.85-5.65) 10/22/23 18:54 Hgb 14.70 g/dL (11.27-16.99) 10/22/23 18:54 Hct 43.7 % (37-53) 10/22/23 18:54 MCV 86.4 fl (82-101) 10/22/23 18:54 MCH 29.1 pg (27-33) 10/22/23 18:54 MCHC 33.6 g/dL (30-55) 10/22/23 18:54 RDW 11.7 % (12.1-15.1) L 10/22/23 18:54 Plt Count 249 10^3/cmm (157-399) 10/22/23 18:54 MPV 9.8 fL (7.4-10.4) 10/22/23 18:54 Neut % (Auto) 53.2 % 10/22/23 18:54 Lymph % (Auto) 35.0 % 10/22/23 18:54 [place] % (Auto) 6.4 % 10/22/23 18:54 Eos % (Auto) 2.4 % 10/22/23 18:54 Baso % (Auto) 2.6 % 10/22/23 18:54 Neut # (Auto) 2.68 10^3/uL (1.8-7.7) 10/22/23 18:54 Lymph # (Auto) 1.8 10^3/uL (0.8-4.8) 10/22/23 18:54 [place] # (Auto) 0.3 10^3/uL (0.2-0.9) 10/22/23 18:54 Eos # (Auto) 0.1 10^3/uL (0.0-0.8) 10/22/23 18:54 Baso # (Auto) 0.1 10^3/uL (0.0-0.1) 10/22/23 18:54 Nucleated RBC % (auto) 0 % 10/22/23 18:54 Nucleated RBCs # 0.0 /100WBC 10/22/23 18:54 Sodium 135 mmol/L (136-145) L 10/22/23 18:54 Potassium 4.1 mmol/L (3.5-5.1) 10/22/23 18:54 Chloride 97 mmol/L (98-107) L 10/22/23 18:54 Carbon Dioxide 26 mmol/L (22-29) 10/22/23 18:54 Anion Gap 16.1 (5-19) 10/22/23 18:54 BUN 19 mg/dL (6-20) 10/22/23 18:54 Creatinine 1.1 mg/dL (0.7-1.2) 10/22/23 18:54 GFR Calculation 72.1 mL/min (90-130) L 10/22/23 18:54 Glucose 299 mg/dL (65-115) H 10/22/23 18:54 Calculated Osmolality 293 mOsm/kg (285-295) 10/22/23 18:54 Calcium 9.4 mg/dL (8.5-10.5) 10/22/23 18:54 Total Bilirubin 0.2 mg/dL (0.15-1.2) 10/22/23 18:54 AST 13 U/L (0-40) 10/22/23 18:54 ALT 19 U/L (0-41) 10/22/23 18:54 Alkaline Phosphatase 66 U/L (40-130) 10/22/23 18:54 Total Protein 7.1 g/dL (6.6-8.7) 10/22/23 18:54 Albumin 4.7 g/dL (3.5-5.2) 10/22/23 18:54 Globulin 2.4 g/dL (1.3-4.6) 10/22/23 18:54 Lipase 32 U/L (13-60) 10/22/23 18:54 Urine Color Yellow (Yellow) 10/22/23 18:57 Urine Appearance Clear (CLEAR) 10/22/23 18:57 Urine pH 6 (5-7) 10/22/23 18:57 Ur Specific [place] 1.015 (1.005-1.030) 10/22/23 18:57 Urine Protein Neg (Negative) 10/22/23 18:57 Urine Glucose (UA) 4+ (Normal) H 10/22/23 18:57 Urine Ketones 1+ (Negative) H 10/22/23 18:57 Urine Blood Neg (Negative) 10/22/23 18:57 Urine Nitrate Negative (Negative) 10/22/23 18:57 Urine Bilirubin Neg (Negative) 10/22/23 18:57 Urine Urobilinogen Norm mg/dL (Negative) 10/22/23 18:57 Ur Leukocyte Esterase Negative (Negative) 10/22/23 18:57 Amorphous Sediment Not Reportable 10/22/23 18:57 All radiology interpretation(s) finalized by discharge Discharge Plan Discharge Patient Disposition: Home Clinical Impression: Abdominal pain Qualifiers: Abdominal location: right lower quadrant Qualified Code(s): R10.31 - Right lower quadrant pain Condition: Stable Prescriptions: No Action (DME) blood-glucose meter [Blood Glucose Monitoring] Kit See Rx Instructions .ROUTE .MEDSUPPLY Qty: 1 0RF Rx Instructions: As directed (DME) blood sugar diagnostic Strip See Rx Instructions .ROUTE .MEDSUPPLY Qty: 100 1RF Rx Instructions: As directed azithromycin 250 mg tablet See Rx Instructions PO .COMPLEX Qty: 6 0RF Rx Instructions: For 250 mg dose pack: take 500 mg today (day 1), then 250 mg for 4 days (days 2-5) PO albuterol sulfate [ProAir HFA] 90 mcg/actuation HFA aerosol inhaler 2 puff inhalation 6XD PRN (Reason: shortness of breath or wheezing) Qty: 8.5 0RF prednisone 20 mg tablet 20 mg PO DAILY 7 Days Qty: 7 0RF Januvia 50 mg tablet 50 mg PO DAILY Qty: 90 0RF ketorolac 10 mg tablet 10 mg PO Q8H PRN (Reason: pain) Qty: 15 0RF Discharge Orders: Discharge ED (Routine); Ordered 10/22/23 Ordered By: Carlos Pak Referrals: Siomara Brower FNP [Primary Care Provider] - Discharge Diet: Usual diet Discharge Activity: Increase activity as tolerated Patient Instructions: Abdominal Pain (ED), Pain Management Activity Restrictions/Additional Instructions: Please follow-up with primary care later this week for reevaluation. Tylenol and ibuprofen at home for pain. Plenty of fluids. Return with any new or worsening symptoms. Coding Level of Care Code ED Anesthesia Associate for Anitha Smith
[2023-10-22 18:59] LABS: Basophils # 0.1 10^3/uL (0.0-0.1); Basophils % 2.6 %; Eosinophils # 0.1 10^3/uL (0.0-0.8); Eosinophils % 2.4 %; Hematocrit 43.7 % (37-53); Lymphocytes # 1.8 10^3/uL (0.8-4.8); Mean Corpuscular HGB Conc 33.6 g/dL (30-55); Mean Corpuscular Hemoglobin 29.1 pg (27-33); Mean Corpuscular Volume 86.4 fl (82-101); Mean Platelet Volume 9.8 fL (7.4-10.4); Monocytes # 0.3 10^3/uL (0.2-0.9); Monocytes % 6.4 %; Neutrophils # 2.68 10^3/uL (1.8-7.7); Neutrophils % 53.2 %; Nucleated Red Blood Cells % 0 %; Platelet Count 249 10^3/cmm (157-399); Red Blood Count 5.06 10^6/uL (3.85-5.65); Red Cell Distribution Width 11.7 % (12.1-15.1); White Blood Count 5.03 10^3/uL (3.29-11.43)
[2023-10-22 19:15] VITALS: RESP 16
[2023-10-22] MEDS: ondansetron 2 mg/ML SDV 2 mL 4 MG IVP (19:15)
[2023-10-22] MEDS: morphine 4 mg/mL SDV 1 mL IVP (19:15)
[2023-10-22 19:16] LABS: Alanine Aminotransferase 19 U/L (0-41); Albumin Level 4.7 g/dL (3.5-5.2); Alkaline Phosphatase 66 U/L (40-130); Anion Gap 16.1 (5-19); Aspartate Amino Transferase 13 U/L (0-40); Blood Urea Nitrogen 19 mg/dL (6-20); Calcium 9.4 mg/dL (8.5-10.5); Carbon Dioxide 26 mmol/L (22-29); Chloride 97 mmol/L (98-107); Creatinine Clr Calc Pharmacy 91.9534; Globulin 2.4 g/dL (1.3-4.6); Glomerular Filtration Rate 72.1 mL/min (90-130); Glucose 299 mg/dL (65-115); Lipase 32 U/L (13-60); Osmolality Calculated 293 mOsm/kg (285-295); Potassium 4.1 mmol/L (3.5-5.1); Sodium 135 mmol/L (136-145); Total Bilirubin 0.2 mg/dL (0.15-1.2); Total Protein 7.1 g/dL (6.6-8.7)
[2023-10-22] MEDS: sodium chloride 0.9% 1,000 ML 999 ML IV (19:17)
--- NOTE | 2023-10-22 19:20 | PC.NURSE ---
PT WAS ORDERED MORPHINE, IN PT CHART IT STATES ALLERGIC TO HYDROCODONE. PT OKAYED TO GIVE, HE STATES HE HAS NOT HAD ANY PRIOR REACTION TO MORPHINE IN THE PAST.
[2023-10-22 19:27] LABS: Charge for UA Resulting for Rev
[2023-10-22] MEDS: iohexol 350 mg/mL 500 mL Btl (per mL) IV (19:27)
[2023-10-22 19:30] LABS: Specific Gravity, Urine 1.015 (1.005-1.030); Urine Appearance Clear (CLEAR); Urine Color Yellow (Yellow); pH Urine 6 (5-7)
[2023-10-22 19:31] LABS: Bilirubin Urine Neg (Negative); Blood Urine Neg (Negative); Glucose Urine UA 4+ (Normal); Ketones Urine 1+ (Negative); Leukocyte Esterase Urine Negative (Negative); Nitrate Urine Negative (Negative); Protein Urine Neg (Negative); Urobilinogen Urine Norm (Negative)
[2023-10-22 19:44] VITALS: BP 136/90; PULSE 73; O2SAT 92
[2023-10-22 20:00] VITALS: BP 118/78; O2SAT 94
[2023-10-22 20:35] VITALS: BP 115/77; PULSE 67; RESP 16; O2SAT 97
== END 2023-10-22 20:37 | disposition home or self-care (01) ==
PROVIDERS: Emergency Medicine; Emergency Provider Physician Assistant; PCP Nurse Practitioner Family
DX: R10.31 Right lower quadrant pain (principal); Z87.891 Personal history of nicotine dependence; E78.5 Hyperlipidemia, unspecified; E11.9 Type 2 diabetes mellitus without complications; Z85.118 Personal history of other malignant neoplasm of bronchus and lung
CPT/HCPCS: 74177; 80053; 81003; 81015; 83690; 85025; 96374; 96375; 99285; J2270; J2405; J7030; Q9967

== ENCOUNTER → 2023-11-09 09:43 | Outpatient (BNVA) | payer OTHER, SELFPAY | PROVIDERS: PCP Nurse Practitioner Family; Visit Provider Nurse Practitioner Family | DX: I10 Essential (primary) hypertension (principal); E11.9 Type 2 diabetes mellitus without complications | CPT/HCPCS: 80053; 80061; 83036 ==

== ENCOUNTER → 2023-12-07 09:26 | Outpatient (BNVA) | payer OTHER, SELFPAY | PROVIDERS: PCP Nurse Practitioner Family; Visit Provider Nurse Practitioner Family | DX: E04.9 Nontoxic goiter, unspecified (principal) | CPT/HCPCS: 84439; 84443 ==

== ENCOUNTER 2024-01-23 16:30 | Outpatient (CLI) | payer OTHER, SELFPAY ==
--- NOTE | 2024-01-23 16:33 | XRR_ITS ---
PROCEDURE INFORMATION: Exam: XR Lumbosacral Spine Exam date and time: 01/23/2024 4:56 PM Age: 48 years old Clinical indication: Pain; Sciatica; Bilateral; Prior surgery; Surgery date: 6+ months; Surgery type: Lung, RT hip; Patient HX: HX of lung cancer; Additional info: M54.30 - sciatica, unspecified side TECHNIQUE: Imaging protocol: Radiologic exam of the lumbosacral spine. Views: 2 or 3 views. COMPARISON: CR XR lumbar spine min 4V [id number] 05/03/2021 3:14 PM FINDINGS: Bones/joints: Six transitional lumbosacral anatomy with the last well-formed disc space identified is L5-S1, therefore hypoplastic T12 ribs. Mild scattered degenerative changes of the visualized osseous structures. Soft tissues: Unremarkable. Gastrointestinal tract: Heavy colonic stool burden. XR/XR lumbar spine 2-3V* [id number] IMPRESSION: 1. Degenerative findings without acute abnormality. 2. Heavy colonic stool burden.
== END 2024-01-23 16:31 | disposition home or self-care (01) ==
LOC: RAD 16:31
PROVIDERS: PCP Nurse Practitioner Family; Visit Provider Nurse Practitioner Family
DX: M51.360 Other intervertebral disc degeneration, lumbar region with discogenic back pain only (principal); M54.30 Sciatica, unspecified side; K59.00 Constipation, unspecified
CPT/HCPCS: 72100

== ENCOUNTER 2024-01-28 07:50 | Day surgery (SDC) | payer OTHER, SELFPAY ==
--- OUTSIDE RECORDS SUMMARY | 2023-12-24 09:12 | XMS_ITS ---
Author Name Unknown Organization [facility] Address [address] [facility] [place] [address] Care Team Providers Care Machine Pack Assembler Name Role Phone Siomara Savage Primary Care Provider Unav ailable Sanford Adorno [phone] Encounters Encounter Location Date Provider Diagnosis [facility] [address] [place] [address], [place] [address] 10/22/2023 Sanford Adorno Plan Of Treatment Next Appt Details Provider Name:Sanford Adorno, 05/09/2024 09:00:00 AM, [address] [place], [address], Progress Notes * DIRK JARAMILLODOB:1975 (48 yo M)Acc No.[id number]:10/22/2023 Patient:?DIRK JARAMILLO :1975???Age:48 Y???Sex:Male Address:[address] [place] [address], [phone] * true * Date:? Generated for Nikkii nancy/Jake/eTransmitting on:?12/24/2023 09:12 AM CDT
--- OUTSIDE RECORDS SUMMARY | 2023-12-24 09:12 | XMS_ITS ---
Author Name Unknown Organization [facility] Address [address] [place] [address] Care Team Providers Care International Sourcing Manager Name Role Phone Siomara Savage Primary Care Provider Unav ailable Sanford Adorno Unavailable [phone] REASON FOR VISIT RIGHT KNEE Vital Signs Blood pressure systolic 120 mm Hg 10/26/19 24 Blood pressure diastolic 78 mm Hg 024 Heart Rate 85 /min 10/26/2023 Height 71 in 10/26/2023 Weight 183 lbs 10/26/2023 BMI 25.52 kg/m2 10/26/2023 Oximetry 96 % 10/26/2023 Height-cm 180.34 cm 10/26/2023 Weight-kg 83.01 kg 10/26/2023 Encounters Encounter Location Date Provider Diagnosis [facility] [address] [place] [address] 10/26/2023 Sanford Adorno S/P ACL reconstructi on Z98.890 and Chondromalacia, right knee M94.261 Assessments Encounter Date Diagnosis (ICD Code) Assessment Notes Treatment Notes Treatment Clinical Notes 10/26/2023 S/P ACL reconstruction (ICD-10 - Z98.890) This individual's ACL reconstruction is secure. 10/26/2023 Chondromalacia, right knee (ICD-10 - M94.261) Individual has had an excellent result with viscosupplementation injection to the right knee previously. As a result of this we will proceed with this again today. Procedure: ChloraPrep is applied to the right knee. 3 mL of Durolane are injected intra-articular to the right knee without difficulty. Patient tolerates the procedure well. Recheck in 6 months. Plan Of Treatment Treatment Notes Assessment Notes S/P ACL reconstruction This individual's ACL reconstruction is secure. Chondromalacia, right knee Individual has had an excellent result with viscosupplementation injection to the right knee previously. As a result of this we will proceed with this again today. Procedure: ChloraPrep is applied to the right knee. 3 mL of Durolane are injected intra-articular to the right knee without difficulty. Patient tolerates the procedure well. Recheck in 6 months. Next Appt Details Follow Up: 6 Months, Reason: Provider Name:Sanford Adorno, 05/09/2024 09:00:00 AM, [address] [place], [address], Medications Administered Medication Instructions Date of Administration Dosage Notes Durolane 10/26/2023 3 mL Progress Notes * DIRK JARAMILLO MDOB:[birth year] (48 yo M)Acc No.[id number]:10/26/2023 Progress Notes Patient:?DIRK JARAMILLO Provider:?Sanford Adorno M.D. 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 RIGHT KNEE. * HPI: ???Provider Note:? This individual is seen today for follow-up early osteoarthritis right knee. He is status post ACL reconstruction from a few years ago.? I gave him a viscosupplementation injection quite sometime ago. He notes it is lasted until just recently.? He is starting to have medial joint pain once again. * Medical History:? Objective: * Vitals:?Ht: 71 in, Wt:183lbs , Wt-k.01 kg, BMI:25.52Index, BP:120/78mm Hg, HR:85/min, Oxygen sat %:96%, O2 Source: ra, Pain scale: 3 1-10, Ht-cm: 180.34 cm. * Examination: ???General Examination: ?GENERAL APPEARANCE:?alert, well hydrated, in no distress, converses well.?HEAD:?normocephalic, atraumatic.?EYES:?PERRL; normal conjunctiva.?EARS:?BOTH EARS, tympanic membrane intact, clear.?MUSCULOSKELETAL:?Right knee: Well-healed scars are noted from the previous ACL reconstruction and portal sites.? No effusion. Tenderness medial joint. Lizet posterior drawer negative.? No effusion. Skin shows no lesions or ulcers.? Quadriceps 5, hamstrings 5.? Hip ankle motion normal.? Gait minimally antalgic to the right. Balance is good..? Assessment: * Assessment: 1.?Chondromalacia, right kne e - M94.261 (Primary)???2.?S/P ACL reconstruction - Z98.890??? Plan: * Treatment: 2.?S/P ACL reconstruction? Notes: This individual's ACL reconstruction is secure.?? * Therapeutic Injections:? Durolane : 3 mL (Route: Other/Miscellaneous) given by Sanford Adorno MD on Right Joint * Procedure Codes:?3078F DIAST BP < 80 MM HG, 3074F SYST BP LT 130 MM HG, [id number] Durolane * Follow Up:?6 Months * Billing Information: * Visit Code:? * Procedure Codes:? 3078F DIAST BP < 80 MM HG. 3074F SYST BP LT 130 MM HG. [id number] Durolane. Care Plan Details* * Sign off status: Completed true * Provider:?Sanford Adorno M.D. Date:?10/04 Generated for Robert cruz/Jake/eTanaysmitting on:?12/24/2023 09:11 AM CDT History and Physical Notes * Examination Category Sub-Category Detail Notes General Examination GENERAL APPEARANCE: alert, w ell hydrated, in no distress, converses well HEAD: normocephalic, atrau matic EYES: PERRL; normal conjun ctiva EARS: BOTH EARS, tympanic membrane intact, clear MUSCULOSKELETAL: Right knee: Well-hea led scars are noted from the previous ACL reconstruction and portal sites. No effusion. Tenderness medial joint. Lizet posterior drawer negative. No effusion. Skin shows no lesions or ulcers. Quadriceps 5, hamstrings 5. Hip ankle motion normal. Gait minimally antalgic to the right. Balance is good.
--- OUTSIDE RECORDS SUMMARY | 2023-12-24 09:12 | XMS_ITS | Patient Health Record ---
Author Name Unknown Organization [facility] Address [address] [place] [address] Care Team Providers Care Credit Controller Name Role Phone Siomara Savage Primary Care Provider Unav ailable Sanford Adorno Unavailable [phone] Reason For Referral No Information Vital Signs Heart Rate 85 /min 10/26/2023 Height-cm 180.34 cm 10/26/2023 Oximetry 96 % 10/26/2023 Blood pressure diastolic 78 mm Hg 10/26/2023 Weight-kg 83.01 kg 10/26/2023 Height 71 in 10/26/2023 Blood pressure systolic 120 mm Hg 10/26/2023 Weight 183 lbs 10/26/2023 BMI 25.52 kg/m2 10/26/2023 Encounters Encounter Location Date Provider Diagnosis [facility] [address] [place] [address] 10/26/2023 Sanford Adorno S/P ACL reconstructi on Z98.890 and Chondromalacia, right knee M94.261 [facility] [address] [facility] [place] [address] 10/22/2023 Sanford Adorno Assessments Encounter Date Diagnosis (ICD Code) Assessment Notes Treatment Notes Treatment Clinical Notes 10/26/2023 Chondromalacia, right knee (ICD-10 - M94.261) Individual has had an excellent result with viscosupplementation injection to the right knee previously. As a result of this we will proceed with this again today. Procedure: ChloraPrep is applied to the right knee. 3 mL of Durolane are injected intra-articular to the right knee without difficulty. Patient tolerates the procedure well. Recheck in 6 months. 10/26/2023 S/P ACL reconstruction (ICD-10 - Z98.890) This individual's ACL reconstruction is secure. Plan Of Treatment Next Appt Details Provider Name:Sanford Adorno, 05/09/2024 09:00:00 AM, [address] [place], [address], Insurance Providers Payer Name Payer Address Payer Phone Subscriber Number Group Number Insured Name Patient Relationship to Insured Coverage Start Date Coverage End Date [employer] [address] [address] [place] [address] [id number] DIRK JARAMILLO Self - patient is the insured Medications Administered Medication Instructions Date of Administration Dosage Notes Durolane 10/26/2023 3 mL
--- OUTSIDE RECORDS SUMMARY | 2024-01-28 07:53 | XMS_ITS ---
Author Name Unknown Organization [facility] Address [address] [place] [address] Care Team Providers Care Clinical Education Academic Coordinator Name Role Phone Siomara Savage Primary Care Provider Unav ailable Sanford Adorno Unavailable [phone] REASON FOR VISIT RIGHT KNEE Vital Signs Blood pressure systolic 120 mm Hg 10/26/19 24 Blood pressure diastolic 78 mm Hg 024 Heart Rate 85 /min 10/26/2023 Height 71 in 10/26/2023 Weight 183 lbs 10/26/2023 BMI 25.52 kg/m2 10/26/2023 Oximetry 96 % 10/26/2023 Height-cm 180.34 cm 10/26/2023 Weight-kg 83.01 kg 10/26/2023 Encounters Encounter Location Date Provider Diagnosis [facility] [address] [place] [address] 10/26/2023 Sanford Adorno S/P ACL reconstructi on [...] Details Follow Up: 6 Months, Reason: Provider Name:Bacilio Grant, 02/13/2024 01:40:00 PM, [address] [place], [address], Provider Name:Sanford Adorno, 05/09/2024 09:00:00 AM, [address] [place] [address], [address], Medications Administered Medication Instructions Date of Administration Dosage Notes Durolane 10/26/2023 3 mL Progress Notes * DIRK JARAMILLO MDOB:[birth year] (48 yo M)Acc No.[id number]:10/26/2023 Progress Notes Patient:?DIRK JARAMILLO Provider:?Sanford Adorno M.D. 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 RIGHT [...] Provider:?Sanford Adorno M.D. Date:?10/04 Generated for Robert cruz/Jake/Hayderitting on:?01/28/2024 07:53 AM EARLY HEAD START TEACHER History and Physical Notes * Examination Category [...]
--- OUTSIDE RECORDS SUMMARY | 2024-01-28 07:53 | XMS_ITS ---
Author Name Unknown Organization [facility] Address [address] [place] [address] Care Team Providers Care Patent Engineer Name Role Phone Siomara Savage Primary Care Provider Unav ailable Sanford Adorno Unavailable [phone] Migration, Provider Unavailable Unavailable REASON FOR VISIT EMR-Soto Encounters Encounter Location Date Provider Diagnosis Migrated_Facility 0 0 12/29/2023 Provider Migration Plan Of Treatment Next Appt Details Provider Name:Bacilio Grant, 02/13/2024 01:40:00 PM, [address] [place], [address], Provider Name:Sanford Adorno, 05/09/2024 09:00:00 AM, [address] [place], [address], Progress Notes * DIRK JARAMILLO MDOB:[birth year] (48 yo M)Acc No.[id number]:12/29/2023 Patient:?DIRK JARAMILLO :1975???Age:48 Y???Sex:Male Address:[address] [place] [address], [address] Subjective: * Chief Complaints: * ???EMR-Soto * Medical History:? * Surgical History:? * Hospitalization/Major Diagno stic Procedure:? * Medications:? Objective: * Vitals:? * Physical Examination:? Assessment: Plan: * Treatment: * Procedure Codes:? * * Date:?
--- OUTSIDE RECORDS SUMMARY | 2024-01-28 07:53 | XMS_ITS | Patient Health Record ---
Author Name Unknown Organization [facility] Address [address] [place] [address] Care Team Providers Care Certified Personal Trainer Name Role Phone Siomara Savage Primary Care Provider Unav ailable Sanford Adorno Unavailable [phone] Migration, Provider Unavailable Unavailable Reason For Referral No Information Vital Signs Heart Rate 85 /min 10/26/2023 Height-cm 180.34 cm 10/26/2023 Oximetry 96 % 10/26/2023 Blood pressure diastolic 78 mm Hg 10/26/2023 Weight-kg 83.01 kg 10/26/2023 Height 71 in 10/26/2023 Blood pressure systolic 120 mm Hg 10/26/2023 Weight 183 lbs 10/26/2023 BMI 25.52 kg/m2 10/26/2023 Encounters Encounter Location Date Provider Diagnosis [facility] [address] [place] [address] 10/26/2023 Sanford Adorno S/P ACL reconstructi on Z98.890 and Chondromalacia, right knee M94.261 Migrated_Facility 0 0 12/29/2023 Provider Migration Migrated_Facility 0 0 12/30/2023 Provider Migration [facility] [address] [facility] [address] 10/22/2023 Sanford Adorno Assessments Encounter Date Diagnosis [...] Name:Bacilio Grant, 02/13/2024 01:40:00 PM, [address] [place], [address], Provider Name:Sanford Adorno, 05/09/2024 09:00:00 AM, [address] [place], [address], Insurance Providers Payer Name Payer Address Payer Phone Subscriber Number Group Number Insured Name Patient Relationship to Insured Coverage Start Date Coverage End Date [facility] [address] [address] [place] [address] [id number] DIRK JARAMILLO Self - patient is the insured Medications Administered Medication Instructions Date of Administration Dosage Notes Durolane 10/26/2023 3 mL
--- OUTSIDE RECORDS SUMMARY | 2024-01-28 07:53 | XMS_ITS ---
Author Name Unknown Organization [facility] Address [address] [place] [address] Care Team Providers Care Edger Feeder Name Role Phone Siomara Savage Primary Care Provider Unav ailable Sanford Adorno Unavailable [phone] Migration, Provider Unavailable Unavailable REASON FOR VISIT EMR-Soto Encounters Encounter Location Date Provider Diagnosis Migrated_Facility 0 0 12/30/2023 Provider Migration Plan Of Treatment Next Appt Details Provider Name:Bacilio Grant, 02/13/2024 01:40:00 PM, [address] [place], [address], Provider Name:Sanford Adorno, 05/09/2024 09:00:00 AM, [address] [place], [address], Progress Notes * DIRK JARAMILLO MDOB:[birth year] (48 yo M)Acc No.[id number]:12/30/2023 Patient:?DIRK JARAMILLO :1975???Age:48 Y???Sex:Male Address:[address] [place] [address], [phone] Subjective: * Chief Complaints: * ???EMR-Soto * Medical History:? * Surgical History:? * Hospitalization/Major Diagno stic Procedure:? * Medications:? Objective: * Vitals:? * Physical Examination:? Assessment: Plan: * Treatment: * Procedure Codes:? * * Date:?
[2024-01-28 08:17] VITALS: BP 95/73; PULSE 90; RESP 18; TEMP 36.3; O2SAT 97; BMI 26.0
[2024-01-28] MEDS: sodium chloride 0.9% 1,000 ML 30 ML IV (08:29)
[2024-01-28 08:37] LABS: Glucose Point of Care 178 mg/dL (70-110)
--- NOTE | 2024-01-28 08:55 | ANES.PREANE2 ---
Pre-Anesthetic Assessment Height/Weight: Height 1.8 m Weight 84.822 kg Temp Pulse Resp BP Pulse Ox O2 Del Method 97.4 F L 90 18 95/73 97 Room Air 01/28/24 08:17 01/28/24 08:17 01/28/24 08:17 01/28/24 08:17 01/28/24 08:17 01/28/24 08:17 Preop Diagnosis: screening Operation Date: 01/28/24 09:00 Proposed Procedures p Colonoscopy- 22153,G0105,Z86.010(Not Applicable) - Kasi Macias MD Familial anesthetic complications: none Was Beta Tracy taken within 24 hours: N/A Was Clonidine taken within 24 hours: N/A Last intake: Intake Last Liquid Date 01/27/24 Last Liquid Time 23:30 Last Solid Date 01/26/24 Last Solid Time 20:00 Social No alcohol and No tobacco Exam alert and oriented x 3 Airway Submandibular: within normal limits Cervical ROM: within normal limits Mallampati: Class III Dentition: full History/ROS No significant complaints Metabolic Diabetes Mellitus Anesthetic Plan ASA status: 2 Anesthesia: Anesthesia Evaluation and MAC Medications/Allergies Home Medications Medication Instructions Recorded Confirmed Last Taken Type blood sugar diagnostic #100 ea 07/02/19 01/23/24 Unknown Rx blood-glucose meter (Blood Glucose #1 ea 07/02/19 01/23/24 Unknown Rx Monitoring kit) adjuvant AS01B (PF)vial 1 of 2 0.5 ml IM ONCE #0.5 mL 12/07/23 01/23/24 Unknown Rx (Shingrix Adjuvant Component (PF) intramuscular suspension) fluticasone propionate 50 2 spray intranasal BID allergy 01/01/24 01/28/24 01/26/24 Rx mcg/actuation nasal symptoms #16 grams spray,suspension (Flonase Allergy Relief) methocarbamol 500 mg tablet 500 mg PO DIRECTED 01/23/24 01/28/24 01/26/24 History naproxen 500 mg tablet 500 mg PO DIRECTED 01/23/24 01/23/24 01/26/24 History oxycodone-acetaminophen 5 mg-325 5 tab PO DIRECTED 01/23/24 01/23/24 01/26/24 History mg tablet sitagliptin phosphate 100 mg 100 mg PO DIRECTED 01/23/24 01/23/24 01/27/24 History tablet (Januvia) Allergies Allergy/AdvReac Type Severity Reaction Status Date / Time acetaminophen [From Vicodin] AdvReac Intermediate ADR-Vomitin Verified 01/23/24 15:30 g hydrocodone [From Vicodin] AdvReac Intermediate ADR-Vomitin Verified 01/23/24 15:30 g Current Medications Generic Name Dose Route Start Last Admin Trade Name Freq PRN Reason Stop Dose Admin Sodium Chloride 1,000 mls @ 30 mls/hr 01/28/24 08:15 01/28/24 08:29 Sodium Chloride 0.9% IV 01/29/24 08:14 30 mls/hr .Q24H [place] Administration PFSH Anesthesia Medical History 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 Hyperlipidemia Shingles outbreak Type 2 diabetes mellitus without complication Migraines Hx of cancer of lung Surgical History History of colonoscopy 2012 Hx of shoulder surgery H/O neck surgery History of hip surgery History of lung surgery History of repair of ACL History of lumbosacral spine surgery Family History Grandmother Stroke Dementia Hyperlipidemia Grandfather Diabetes Mother Hyperlipidemia Other Cancer Denies family history of CAD (coronary artery disease) Chronic kidney disease (CKD) Anesthesia complication Bleeding disorder Lung disease Hypertension Social History Smoking and tobacco/nicotine status: former use of tobacco/nicotine (2011) Quit status (tobacco/nicotine): has quit using Year quit tobacco: 2011 - 1PPD x 6 Years Alcohol intake: never Substance/Drug Use: never Lives independently: Yes Household members: spouse and children Current occupational status: employed Do you think of yourself as: Straight/Heterosexual Current gender identity: Male Audra/Tenriism: Religious Data Anesthesia Cardiac Studies: No Data to Display
--- NOTE | 2024-01-28 09:05 | W.PM.OPSFHP ---
Same Day Surgery H&P Indication for Procedure/HPI DATE OF PROCEDURE: January 28, 2024 CHIEF COMPLAINT/INDICATIONFOR SURGICAL PROCEDURE: screening colonoscopy PREOP DIAGNOSIS: screening PLANNED PROCEDURE: Operation Date: 01/28/24 09:00 Proposed Procedures p Colonoscopy- 56418,G0105,Z86.010(Not Applicable) - Kasi Macias MD Medications/Allergies* Home Medications Medication Instructions Recorded Confirmed Type methocarbamol 500 mg tablet 500 mg PO DIRECTED 01/23/24 01/28/24 History naproxen 500 mg tablet 500 mg PO DIRECTED 01/23/24 01/23/24 History oxycodone-acetaminophen 5 mg-325 5 tab PO DIRECTED 01/23/24 01/23/24 History mg tablet sitagliptin phosphate 100 mg 100 mg PO DIRECTED 01/23/24 01/23/24 History tablet (Januvia) Allergies/Adverse Reactions Allergy/AdvReac Type Severity Reaction Status Date / Time acetaminophen [From Vicodin] AdvReac Intermediate ADR-Vomitin Verified 01/23/24 15:30 g hydrocodone [From Vicodin] AdvReac Intermediate ADR-Vomitin Verified 01/23/24 15:30 g Current Medications: Generic Name Dose Route Start Last Admin Trade Name Freq PRN Reason Stop Dose Admin Sodium Chloride 1,000 mls @ 30 mls/hr 01/28/24 08:15 01/28/24 08:29 Sodium Chloride 0.9% IV 01/29/24 08:14 30 mls/hr .Q24H [place] Administration Pertinent History/Comorbid Conditions* Medical History (Updated 01/23/24 @ 15:55 by SHAINA Frye) 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 Hyperlipidemia Shingles outbreak Type 2 diabetes mellitus without complication Migraines Hx of cancer of lung Surgical History (Updated 06/27/22 @ 16:53 by Poncho Andrew PA-C) History of colonoscopy 2012 Hx of shoulder surgery H/O neck surgery History of hip surgery History of lung surgery History of repair of ACL History of lumbosacral spine surgery Family History (Updated 01/27/22 @ 08:43 by Vania Mercado LPN) Diabetes Grandfather Dementia Grandmother Hyperlipidemia Grandmother Mother Cancer Stroke Grandmother Denies family history of CAD (coronary artery disease) Chronic kidney disease (CKD) Anesthesia complication Bleeding disorder Lung disease Hypertension Social History Smoking and tobacco/nicotine status: former use of tobacco/nicotine (2012) Quit status (tobacco/nicotine): has quit using Year quit tobacco: 2012 - 1PPD x 6 Years Alcohol intake: never Substance/Drug Use: never Lives independently: Yes Household members: spouse and children Current occupational status: employed Do you think of yourself as: Straight/Heterosexual Current gender identity: Male Audra/Christian: Sabianism Pertinent Exam Findings alert, oriented x 3, clear to auscultation bilaterally, regular rate & rhythm and procedure specific exam findings Abdomen soft, nt, nd Recommendations Surgery/Procedure today Coding Level of Care Code Acute Code for Chg Fwd
[2024-01-28 09:22] VITALS: BP 94/66; PULSE 87; RESP 18; TEMP 36.5; O2SAT 98
--- NOTE | 2024-01-28 09:23 | ANE.PACU2 ---
Inpatient post-anesthesia follow up: Airway intact: Yes Vital signs: Temperature 97.7 F Pulse Rate 87 Respiratory Rate 18 Blood Pressure 94/66 Pulse Oximetry 98 Oxygen Delivery Me thod Room Air Oxygen Flow Rate Fraction of Inspir ed Oxygen Hydration adequate: Yes Nausea and vomiting: No Pain level: 1 Mental status: Baseline
[2024-01-28 09:30] VITALS: BP 106/71; PULSE 89; RESP 18; TEMP 36.3; O2SAT 96
== END 2024-01-28 10:02 | disposition home or self-care (01) ==
PROVIDERS: PCP Nurse Practitioner Family; Visit Provider Student in an Organized Health Care Education/Training Program
PROC: 0DJD8ZZ Inspection of Lower Intestinal Tract, Via Natural or Artificial Opening Endoscopic (ICD-10-PCS; CPT 45378; principal; 2024-01-28 09:00)
DX: Z12.11 Encounter for screening for malignant neoplasm of colon (principal); Z86.0100 Personal history of colon polyps, unspecified; K57.30 Diverticulosis of large intestine without perforation or abscess without bleeding; E78.5 Hyperlipidemia, unspecified; E11.9 Type 2 diabetes mellitus without complications; Z85.118 Personal history of other malignant neoplasm of bronchus and lung; Z87.891 Personal history of nicotine dependence
CPT/HCPCS: 36416; 45378; 82962; J2704; J7030

== ENCOUNTER 2024-02-07 09:21 | Outpatient (CLI) | payer OTHER, SELFPAY ==
--- NOTE | 2024-02-07 09:30 | MR_ITS ---
WS: [id number] MRI LUMBAR SPINE NONCONTRAST HISTORY: M54.16 - Radiculopathy, lumbar region, LEFT lower extremity pain and numbness COMPARISON: Radiograph 01/23/2024 TECHNIQUE: Sagittal and axial multisequence imaging is submitted. Prior cervical fusion hardware. 2 mm retrolisthesis of L4 and L5. No acute fracture or marrow edema. Schmorl's nodes defects noted at T12, L1, L2 and L3. Disc spaces and vertebral body heights are well-preserved. Conus terminates normally at L1. L1-L2: Normal. L2-L3: Mild disc bulging. Mild facet arthritis. No stenosis. L3-L4: Mild annular disc bulging with mild ligamentum flavum and facet arthritis. Disc encroachment u twin the subarticular recesses and traversing L4 nerve roots. Very mild disc encroachment into the for jimmy. Very shallow LEFT foraminal disc protrusion with annular fissure. Bilateral subarticular rece ss and foraminal stenosis. L4-L5: Annular disc bulging with osteophytic ridging. Moderate central disc protrusion encroaching up on the central thecal sac and subarticular recesses. There is disc contact and displacement of the tr aversing L5 nerve roots. Moderate ligamentum flavum and facet arthritis. Mild central with moderate b ilateral subarticular recess and foraminal stenosis. There is disc contact on the the L4 and L5 nerve roots bilaterally. L5-S1: Diffuse annular disc bulging with a shallow central disc protrusion. Disc contacts the S1 nerv e roots bilaterally. Slightly greater contact on the LEFT S1 nerve root. Osteophytic ridging and disc bulging extend into the foramina. Significant contact also on the exiting L5 nerve roots. No central stenosis. Moderate bilateral subarticular recess and foraminal stenosis. Paravertebral soft tissues are negative. MR/MR lumbar spine wo con* [id number] IMPRESSION: 1. No acute lumbar spine fracture. 2. L4-5: Moderate size central disc protrusion encroaching upon the thecal sac and subarticular recesses. Mild central with moderate bilateral subarticular r ecess and foraminal stenosis. There is disc and osteophyte contacting the L4 an d L5 nerve roots. 3. L5-S1: Shallow central disc protrusion contacting the S1 nerve roots. Sligh tly greater contact on the LEFT S1 nerve root. Osteophytic ridging, disc diseas e and facet arthritis resulting in moderate bilateral subarticular recess and f oraminal stenosis. There is contact on the exiting L5 nerve roots. 4. L3-4: Mild bilateral subarticular recess and foraminal stenosis. Very mild disc contact on the exiting and traversing nerve roots. No high-grade stenosis.
== END 2024-02-07 09:22 | disposition home or self-care (01) ==
LOC: RAD 09:23
PROVIDERS: PCP Nurse Practitioner Family; Visit Provider Nurse Practitioner Family
DX: M54.16 Radiculopathy, lumbar region (principal); M43.16 Spondylolisthesis, lumbar region; M51.360 Other intervertebral disc degeneration, lumbar region with discogenic back pain only; M47.896 Other spondylosis, lumbar region; M25.78 Osteophyte, vertebrae
CPT/HCPCS: 72148

== ENCOUNTER → 2024-04-18 14:00 | Outpatient (BNVA) | payer OTHER, SELFPAY | PROVIDERS: PCP Nurse Practitioner Family; Visit Provider Nurse Practitioner Family | DX: E11.9 Type 2 diabetes mellitus without complications (principal) | CPT/HCPCS: 82962 ==

== ENCOUNTER → 2024-07-14 16:45 | Outpatient (BNVA) | payer OTHER, SELFPAY | PROVIDERS: PCP Nurse Practitioner Family; Visit Provider Nurse Practitioner Family | DX: E11.9 Type 2 diabetes mellitus without complications (principal) | CPT/HCPCS: 83036 ==

== ENCOUNTER → 2024-10-24 08:05 | Outpatient (BNVA) | payer OTHER, SELFPAY | PROVIDERS: PCP Nurse Practitioner Family; Visit Provider Nurse Practitioner Family | DX: I10 Essential (primary) hypertension (principal); E11.9 Type 2 diabetes mellitus without complications; E78.2 Mixed hyperlipidemia | CPT/HCPCS: 80053; 80061; 83036 ==

== ENCOUNTER 2025-03-02 23:17 | Emergency (ER) | payer OTHER, SELFPAY ==
--- OUTSIDE RECORDS SUMMARY | 2024-09-02 08:50 | XMS_ITS ---
Author Organization [facility] Address [address] [place] [address] Care Team Providers Care District Plant Supervisor Name Role Phone Siomara Savage Primary Care Provider Unav ailSanford Sierra Unavailable [phone] REASON FOR VISIT RT KNEE Social History Sex Assigned At : Social History Observation Description Sex Assigned At Male Encounters Encounter Location Date Provider Diagnosis [facility] [address] [place] [address] 09/02/2024 Sanford Adorno Plan Of Treatment Next Appt Details Provider Name:Bacilio Grant, 03/12/2025 01:20:00 PM, [address] [place], [address], Provider Name:Sanford Adorno, 04/10/2025 08:30:00 AM, [address] [place], [address], Progress Notes * DIRK JARAMILLO MDOB:[birth year] (49 yo M)Acc No.[id number]:09/02/2024 Progress Notes Patient: DIRK ENNIS Provider: Chaz Adorno M.D. :1975 A ge:49 Y S ex:Male Date:09/02/2024 Address:[address] [place], [place] [address] [place], [place] Pcp:Siomara J Inocente, SENIOR SERVICE TECHNICIAN-C Subjective: * Chief Complaints: * R T KNEE Care Plan Details* * Electronic signature of Mauricio Adorno MD on 03/02/2025 at 11:20 PM POSITIVE PRINTER OPERATOR Sign off status: Pending * Provider: Chaz Adorno M.D. Date: 0 09/02/2024 Generated for Robert cruz/Jake/Starla on: 1 11:20 PM POSITIVE PRINTER OPERATOR
--- OUTSIDE RECORDS SUMMARY | 2024-11-19 02:40 | XMS_ITS ---
Author Organization [facility] Address [address] [place] [address] Care Team Providers Care Bench Repair Technician Name Role Phone Siomara Savage Primary Care Provider Unav Sanford Merida Unavailable [phone] REASON FOR VISIT LEFT SHOULDER ARTHROSCOPY INCLUDING ROTATOR CUFF REPAIR AND BICEPS TENODESIS Social History Sex Assigned At : Social History Observation Description Sex Assigned At Male Encounters Encounter Location Date Provider Diagnosis [facility] [address] [place] [address] 11/19/2024 Sanford Adorno Plan Of Treatment Next Appt Details Provider Name:Bacilio Grant, 03/12/2025 01:20:00 PM, [address] [place], [address], Provider Name:Sanford Adorno, 04/10/2025 08:30:00 AM, [address] [place], [address], Progress Notes * DIRK JARAMILLO MDOB:[birth year] (49 yo M)Acc No.[id number]:11/19/2024 Patient: DIRK ENNIS Provider: Chaz Adorno M.D. :1975 A ge:49 Y S ex:Male Date:11/19/2024 Address:[address] [place] [phone] Pcp:PRABHJOT Slaughter Billing Information: * Procedure Codes: * Electronic signature of Mauricio Adorno MD on 03/02/2025 at 11:20 PM POLICE JUSTICE Sign off status: Pending * Provider: Chaz Adorno M.D. Date: 0 11/19/2024 Generated for Robert cruz/Jake/Starla on: 1 11:20 PM POLICE JUSTICE
--- OUTSIDE RECORDS SUMMARY | 2025-01-16 03:30 | XMS_ITS ---
Author Organization [facility] Address [address] [place] [address] Care Team Providers Care Program Host Name Role Phone Siomara Savage Primary Care Provider Unav Sanford Merida Unavailable [phone] REASON FOR VISIT LT SHOULDER Social History Sex Assigned At : Social History Observation Description Sex Assigned At Male Encounters Encounter Location Date Provider Diagnosis [facility] [address] [place] [address] 01/16/2025 Sanford Adorno Plan Of Treatment Next Appt Details Provider Name:Bacilio Grant, 03/12/2025 01:20:00 PM, [address] [place] [address], [address], Provider Name:Sanford Adorno, 04/10/2025 08:30:00 AM, [address] [place], [address], Progress Notes * DIRK JARAMILLO MDOB:[birth year] (49 yo M)Acc No.[id number]:01/16/2025 Patient: DIRK ENNIS Provider: Chaz Adorno M.D. :1975 A ge:49 Y S ex:Male Date:01/16/2025 Address:[address] [place] [address] Pcp:PRABHJOT Slaughter Subjective: * Chief Complaints: * L T SHOULDER Billing Information: * Procedure Codes: * Electronic signature of Mauricio Adorno MD on 03/02/2025 at 11:19 PM DIGITAL ASSOCIATE MEDIA DIRECTOR Sign off status: Pending * Provider: Chaz Adorno M.D. Date: 03/18/2024 Generated for Robert cruz/Jake/Starla on: 11:19 PM DIGITAL ASSOCIATE MEDIA DIRECTOR
--- OUTSIDE RECORDS SUMMARY | 2025-03-02 23:20 | XMS_ITS | Encounter Summary ---
Author Organization [facility] Address [address] [place] [address] Care Team Providers Care Ready Mix Truck Driver Name Role Phone Siomara Brower Primary Care Provider Encounter Details Date Type Department Care Team (Latest Contact Info) Description 04/21/2015 Ancillary Orders [facility] Centralized Scheduling [address] [place] [address] Nelly Fonseca, SHAINA Lipscomb [address] [place], [place] [address] Lung nodules (Primary Dx) Social History Tobacco Use Types Packs/Day Years Used Date Smoking Tobacco: Former Smokeless Tobacco: Former Chew Alcohol Use Standard Drinks/Week Comments Yes 0 (1 standard drink = 0.6 oz pur e alcohol) Seldom Sex and Gender Information Value Date Recorded Sex Assigned at Not on file Legal Sex Male 6:57 AM EXHIBIT BUILDER Gender Identity Not on file Sexual Orientation Not on file Occupation Industry Job Start Date Job End Date Not on file Not on file Not on file Not on file documented as of this encounter Plan of Treatment Not on file documented as of this encounter Visit Diagnoses Diagnosis Lung nodules- Primary Other nonspecific abnormal finding of lung field documented in this encounter Care Teams Ready Mix Truck Driver Relationship Specialty Start Date End Date Siomara Brower FNP [address] [place] [phone] PCP - General Nurse Practitioner Family 11/18/19 documented as of this encounter
--- OUTSIDE RECORDS SUMMARY | 2025-03-02 23:20 | XMS_ITS | Encounter Summary ---
Author Organization [facility] Address [address] [place] [address] Care Team Providers Care Fmd Teacher Name Role Phone Siomara Brower Primary Care Provider Encounter Details Date Type Department Care Team (Late st Contact Info) Description 01/22/2008 Emergency [facility] [address] 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
--- OUTSIDE RECORDS SUMMARY | 2025-03-02 23:20 | XMS_ITS | Encounter Summary ---
Author Organization [facility] Address [address] [place] [address] Care Team Providers Care Audio Experience Expert Name Role Phone Gt Novak MD Primary Care Provider [phone] Encounter Details Date Type Department Care Team (Late st Contact Info) Description 02/24/2025 External Device Data [facility] ABSTRACTION Provider, Abstract NO ADDRESS ON FILE Social History Tobacco Use Types Packs/Day Years Used Date Smoking Tobacco: Former Smokeless Tobacco: Current Chew Alcohol Use Standard Drinks/Week Comments Never 0 (1 standard drink = 0.6 oz pur e alcohol) Food Insecurity Answer Date Recorded Do you find you are eating l ess than you should because you can t pay for food? No 02/21/2025 Transportation Needs Answer Date Record ed Have you gone without health care because you didn t have a way to get there? Or worry about transportation for future doctor visits, picked edge sewing machine operator medication, etc.? No 2024 Housing Stability Answer Date Recorded Do you worry you won t have a steady place to sleep or struggle to pay rent or mortgage? No 02/21/2025 Utility Needs Answer Date Recorded Do you have difficulty payin g for utility costs (electric, water or gas bills)? No 02/21/2025 Medication Needs Answer Date Recorded Have you skipped taking medi cation due to cost or worry you can t afford new medications? No 02/21/2025 Feeling Safe Answer Date Recorded Are you in a relationship wi th someone who hurts you emotionally and/or physically? No 02/21/2025 Sex and Gender Information Value Date Recorded Sex Assigned at Not on file Legal Sex Male 6:33 AM ACCESS NURSE Gender Identity Not on file Sexual Orientation Not on file documented as of this encounter Plan of Treatment Not on file documented as of this encounter Visit Diagnoses Not on filedocumented in this encounter Care Teams Audio Experience Expert Relationship Specialty Start Date End Date Gt Novak MD [address] [phone] PCP - General Family Practice 05/23/23 documented as of this encounter
--- OUTSIDE RECORDS SUMMARY | 2025-03-02 23:20 | XMS_ITS | Encounter Summary ---
Author Organization [facility] Address [address] [place] [address] Care Team Providers Care Tire Repairer Name Role Phone Gt Novak MD Primary Care Provider [phone] Encounter Details Date Type Department Care Team [...] worry about transportation for future doctor visits, pick up driver medication, etc.? No 2024 Housing Stability Answer [...] on file Legal Sex Male 6:33 AM FINISH REMOVER Gender Identity Not on file Sexual Orientation Not on file documented as of this encounter Plan of Treatment Not on file documented as of this encounter Visit Diagnoses Not on filedocumented in this encounter Care Teams Tire Repairer Relationship Specialty Start Date End Date Gt Novak MD [address] [phone] PCP - General Family Practice 05/23/23 documented as of this encounter
--- OUTSIDE RECORDS SUMMARY | 2025-03-02 23:20 | XMS_ITS | Clinical Summary ---
Author Organization [facility] Address [address] [facility] [address] [place] [address] Phone Care Team Providers Care Sludge Mill Operator Name Role Phone Gt Novak MD Primary Care Provider [phone] Allergies Active Allergy Reactions Criticality Noted Date Comments Hydrocodone-Acetaminophen Nausea and Vomiting Low 0 11/09/2021 Medications albuterol sulfate HFA 90 mcg/actuation aerosol inhaler Take 2 Puffs by inhalation every 4 hours as needed for Wheezing or Shortness of Breath. 8.5 Gram 4 Active semaglutide (Ozempic) 0.25 mg or 0.5 mg (2 mg/3 mL) Pen Injector Inject 0.5 mg by subcutaneous injection every 7 days. Active sumatriptan succinate (IMITREX ORAL) as needed Activ e fluconazole (DIFLUCAN) 200 mg tablet Take 200 mg by mouth daily. 5 Active hydrOXYzine HCL (ATARAX) 25 mg tablet Take 25 mg by mouth. Active levocetirizine (XYZAL) 5 mg tablet Take 5 mg by mouth daily. Active traMADol (ULTRAM) 50 mg tabletIndicatio ns:Contusion of fingertip, initial encounter Take 1-2 Tablets (50-100 mg) by mouth every 6 hours as needed for Pain. 30 Tablet 5 Active Active Problems Problem Noted Date Diagnosed Date Personal history of colonic polyps 05/26/2013 Deep groin pain 05/26/2013 Excoriation 05/26/2013 Resolved Problems Problem Noted Date Diagnosed Date Resolved Date ERRONEOUS ENCOUNTER--DISREGARD 06/12/2013 06/12/2013 Overview (06/30/2020): Erroneous encounter ERRONEOUS ENCOUNTER--DISREGARD 06/12/2013 06/12/2013 Encounters Date Type Department Care Team Description 02/24/2025 External Device Data STL ABSTRACTION Provider, Abstract 02/24/2025 External Device Data ST[facility] ABSTRACTION Provider, Abstract 02/24/2025 External Device Data ST[facility] ABSTRACTION Provider, Abstract 02/21/2025 11:16 PM RELISH BLENDER - 02/22/2025 12:20 AM [facility] Medicine [address] [address] [place] [address] Cecilio Mejias MD Contusion of fingertip, initial encounter (Primary Dx) Discharge Disposition: Home or Self Care 02/21/2025 Travel 02/10/2025 External Device Data STL ABSTRACTION Provider, Abstract 01/27/2025 External Device Data STL ABSTRACTION Provider, Abstract 01/20/2025 External Device Data ST[facility] ABSTRACTION Provider, Abstract 01/07/2025 External Device Data STL ABSTRACTION Provider, Abstract 12/30/2024 External Device Data STL ABSTRACTION Provider, Abstract 12/30/2024 External Device Data STL ABSTRACTION Provider, Abstract 12/02/2024 External Device Data STL ABSTRACTION Provider, Abstract 12/02/2024 External Device Data STL ABSTRACTION Provider, Abstract 12/02/2024 External Device Data STL ABSTRACTION Provider, Abstract 12/01/2024 1:51 AM CDT - 12/01/2024 2:45 AM T Emergency [facility] [address] [address] [place] [address] Cecilio Mejias MD Contusion of left elbow, initial encounter (Primary Dx) Discharge Disposition: Home or Self Care 12/01/2024 Travel from Last 3 Months Immunizations Immunization Administration Dates Next Due (ADACEL/BOOSTRIX)(10 YR UP) TDAP VACCINE, 0.5ML, IM 07/04/2014 Family History Medical History Relation Name Comments Diabetes Maternal Grandfather Cancer Paternal Grandfather prostat e ca Colon Cancer Neg Hx Heart Disease Neg Hx Relation Name Status Comments Maternal Grandfather Paternal Grandfather Social History Tobacco Use Types Packs/Day Years Used Date Smoking Tobacco: Former Smokeless Tobacco: Current Chew Tobacco Cessation:Ready to Q uit: Not Asked; Counseling Given: Not Answered Alcohol Use Standard Drinks/Week Comments Never 0 [...] worry about transportation for future doctor visits, 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 No 2024 Housing Stability Answer [...] on file Legal Sex Male 6:33 AM RELISH BLENDER Gender Identity Not on file Sexual Orientation Not on file Last Filed Vital Signs Vital Sign Reading Time Taken Comments Blood Pressure 120/84 02/22/2025 12:00 AM RELISH BLENDER Pulse 102 02/22/2025 12:00 AM RELISH BLENDER Temperature 37.2 C (98.9 F) 02/21/2025 10:15 PM RELISH BLENDER Respiratory Rate 16 02/22/2025 12:0 0 AM RELISH BLENDER Oxygen Saturation 99% 02/22/2025 12: 00 AM RELISH BLENDER Inhaled Oxygen Concentration - - Weight 79.3 kg (174 lb 12.8 oz) 025 10:15 PM RELISH BLENDER Height 180.3 cm (5' 11 ) 02/21/2025 10: 15 PM RELISH BLENDER Body Mass Index 24.38 02/21/2025 10:15 PM RELISH BLENDER Plan of Treatment Health Maintenance Due Date Last Done Comments DIABETES ANNUAL FOOT EXAM 1995 DIABETES ANNUAL RETINAL EXAM 1995 DIABETES HBA1C Q 6 MONTHS 1995 DIABETES MICROALBUMIN ANNUAL SCREEN 1995 LDL CHOLESTEROL ANNUAL 1995 HEPATITIS B VACCINES (2 of 3 - 19+ 3-dose series) 06/03/2018 05/06/2018, 08/29/2017, 06/29/2017 COLORECTAL SCREENING 06/13/2018 06/13/2013 Colorectal Cancer Screening 06/13/2018 FIT-DNA Q 3 years 2022 FIT/FOBT Q 1 year 2022 Flex Sig/CT Colonography Q 5 years 2022 INFLUENZA VACCINE (#1) 2024 DTAP/TDAP/TD VACCINES (4 - T d or Tdap) 08/30/2030 08/30/2020, 06/29/2017, 07/04/2014 Medical Devices Implanted Type Area Roofing Layer Device Identifier Shelf Expiration Date Model / Serial / Lot [place] Suture 3.5x8.5mm Dx Swiveloc Xl Fe Ar-[id number] - [id number] Implanted:Qty: 1 on 02/04/2020 by May Clemens MD [place] Left: Wrist [employer] 07/02/2024 AR-8978P / / [id number] [place] Suture 3.5x8.5mm Dx Swiveloc Xl Fe Ar-[id number] - Sna Implanted:Qty: 1 on 02/04/2020 by May Clemens MD [place] Left: Wrist [employer] 06/03/2023 AR-8978P / NA / [id number] Hand/Wrist Internal Brace Sys Ar-8978-Cp - Sna Implanted:Qty: 1 on 02/04/2020 by May Clemens MD [place] Left: Wrist [employer] 04/04/2024 AR-8978-CP / NA / [id number] Wire K Trocar Dbl .[id number] - Sna Implanted:Qty: 1 on 02/04/2020 by May Clemens MD Wire Left: Wrist [employer]AS[employer] [facility] [[email or web address]] 06/05/2024 [id number] 2S / NA / [id number] Explanted Type Area Roofing Layer Device Identifier Shelf Expiration Date Model / Serial / Lot [place] Suture 3.5x8.5mm Dx Swiveloc Xl Fe Ar-8978p - Sna Explanted:Qty: 1 on 02/04/2020 by May Clemens MD [place] Left: Wrist [employer] 06/03/2023 AR-8978P / NA / [id number] Wire K Trocar Dbl .[id number] - Sna Explanted:Qty: 2 on 02/04/2020 by May Clemens MD Wire Left: Wrist [employer] 07/24/2024 [id number] [id number] / NA / [id number] Wire K Trocar Dbl .[id number] - Sna Explanted:Qty: 1 on 02/04/2020 by May Clemens MD Wire Left: Wrist [employer] [facility] [[email or web address]] 06/05/2024 [id number] 2S / NA / [id number] Procedures Procedure Name Priority Date/Time Associated Diagnosis Comments XR FINGER(S) LEFT Stat 02/21/2025 10: 47 PM RELISH BLENDER XR WRIST 3+ VW LEFT Stat 12/01/2024 2 :19 AM CDT XR ELBOW 3+ VW LEFT Stat 12/01/2024 2 :19 AM CDT XR SHOULDER 2+ VW LEFT Stat 12/01/2024 2:19 AM CDT from Last 3 Months Results * XR FINGER(S) LEFT (02/21/2025 10:47 PM RELISH BLENDER) Anatomical Region Laterality Modality Wrist / Hand Computed Radiogr aphy 02/21/2025 10:4 7 PM RELISH BLENDER Impressions 02/22/2025 12:21 AM RELISH BLENDER IMPRESSION: Suspected nondisplaced fracture at the tip of the second distal phalanx. . Narrative 02/22/2025 12:21 AM RELISH BLENDER EXAM: XR FINGER(S) LEFT DATE/TIME OF EXAM: 02/21/2025 10:47 PM REASON FOR EXAM: Injury DIAGNOSIS: See Reason for Exam COMPARISON: Prior x-ray 08/05/2023 FINDINGS: Lucency at the T8 of the second distal phalanx suggestive of an acute nondisplaced fracture. Prior nondisplaced fracture of the second distal phalanx. No dislocation. No significant arthrosis; joint spaces are preserved. Soft tissues are grossly unremarkable. No suspicious radiodense foreign bodies identified. Procedure Note Juan Francisco Waller MD - 02/22/2025 EXAM: XR FINGER(S) LEFT DATE/TIME OF EXAM: 02/21/2025 10:47 PM REASON FOR EXAM: Injury DIAGNOSIS: See Reason for Exam COMPARISON: Prior x-ray 08/05/2023 FINDINGS: Lucency at the T8 of the second distal phalanx suggestive of an acute nondisplaced fracture. Prior nondisplaced fracture of the second distal phalanx. No dislocation. No significant arthrosis; joint spaces are preserved. Soft tissues are grossly unremarkable. No suspicious radiodense foreign bodies identified. IMPRESSION: Suspected nondisplaced fracture at the tip of the second distal phalanx. . us Cecilio Mejias MD DIAGNOSTIC IMAGING ORDER AWA Final Result * XR WRIST 3+ VW LEFT (12/01/2024 2:19 AM CDT) Anatomical Region Laterality Modality Wrist / Hand Computed Radiogr aphy 12/01/2024 2:19 AM CDT Impressions 12/01/2024 2:29 AM CDT IMPRESSION: Negative for an acute bony abnormality. . Narrative 12/01/2024 2:29 AM CDT EXAM: XR WRIST 3+ VW LEFT DATE/TIME OF EXAM: 12/01/2024 2:19 AM REASON FOR EXAM: Injury, Pain DIAGNOSIS: See Reason for Exam COMPARISON: Left wrist x-ray 03/25/2020 FINDINGS: Chronic fracture deformity of the scaphoid bone. No radiographic evidence of an acute fracture, dislocation, or suspicious osseous lesion. Moderate just was not of the radiocarpal joint. Stable tiny radiopaque density in the palmar aspect of the hand. No other abnormal foreign body identified. Procedure Note Juan Francisco Waller MD - 12/01/2024 EXAM: XR WRIST 3+ VW LEFT DATE/TIME OF EXAM: 12/01/2024 2:19 AM REASON FOR EXAM: Injury, Pain DIAGNOSIS: See Reason for Exam COMPARISON: Left wrist x-ray 03/25/2020 FINDINGS: Chronic fracture deformity of the scaphoid bone. No radiographic evidence of an acute fracture, dislocation, or suspicious osseous lesion. Moderate just was not of the radiocarpal joint. Stable tiny radiopaque density in the palmar aspect of the hand. No other abnormal foreign body identified. IMPRESSION: Negative for an acute bony abnormality. . us Cecilio Mejias MD DIAGNOSTIC IMAGING ORDER AWA Final Result * XR ELBOW 3+ VW LEFT (12/01/2024 2:19 AM CDT) Anatomical Region Laterality Modality Upper Extremity Computed Radiogr aphy 12/01/2024 2:19 AM CDT Impressions 12/01/2024 2:27 AM CDT IMPRESSION: Negative for an acute bony abnormality. . Narrative 12/01/2024 2:27 AM CDT EXAM: XR ELBOW 3+ VW LEFT DATE/TIME OF EXAM: 12/01/2024 2:19 AM REASON FOR EXAM: Injury, Pain DIAGNOSIS: See Reason for Exam COMPARISON: None FINDINGS: No radiographic evidence of an acute fracture, dislocation, or suspicious osseous lesion. No significant arthrosis; joint spaces are preserved. Soft tissues are grossly unremarkable. No suspicious radiodense foreign bodies identified. Procedure Note Juan Francisco Waller MD - 12/01/2024 EXAM: XR ELBOW 3+ VW LEFT DATE/TIME OF EXAM: 12/01/2024 2:19 AM REASON FOR EXAM: Injury, Pain DIAGNOSIS: See Reason for Exam COMPARISON: None FINDINGS: No radiographic evidence of an acute fracture, dislocation, or suspicious osseous lesion. No significant arthrosis; joint spaces are preserved. Soft tissues are grossly unremarkable. No suspicious radiodense foreign bodies identified. IMPRESSION: Negative for an acute bony abnormality. . us Cecilio Mejias MD DIAGNOSTIC IMAGING ORDER AWA Final Result * XR SHOULDER 2+ VW LEFT (12/01/2024 2:19 AM CDT) Anatomical Region Laterality Modality Upper Extremity Computed Radiogr aphy 12/01/2024 2:19 AM CDT Impressions 12/01/2024 2:23 AM CDT IMPRESSION: No acute abnormality. Mild osteoarthritis of the glenohumeral joint. Narrative 12/01/2024 2:23 AM CDT EXAM: XR SHOULDER 2+ VW LEFT DATE/TIME OF EXAM: 12/01/2024 2:19 AM REASON FOR EXAM: Pain DIAGNOSIS: See Reason for Exam COMPARISON: None. FINDINGS: No evidence of a fracture, dislocation, or acute joint space abnormality. The acromioclavicular and coracoclavicular distances appear anatomic. Mild degenerative space narrowing with marginal osteophyte of the inferior humerus Procedure Note Juan Francisco Waller MD - 12/01/2024 EXAM: XR SHOULDER 2+ VW LEFT DATE/TIME OF EXAM: 12/01/2024 2:19 AM REASON FOR EXAM: Pain DIAGNOSIS: See Reason for Exam COMPARISON: None. FINDINGS: No evidence of a fracture, dislocation, or acute joint space abnormality. The acromioclavicular and coracoclavicular distances appear anatomic. Mild degenerative space narrowing with marginal osteophyte of the inferior humerus IMPRESSION: No acute abnormality. Mild osteoarthritis of the glenohumeral joint. Cecilio Mejias MD DIAGNOSTIC IMAGING ORDER AWA Final Result from Last 3 Months Insurance [employer] [id number] [id number] Care Teams Sludge Mill Operator Relationship Specialty Start Date End Date Gt Novak MD [address] [address] PCP - General Family Practice 05/23/23
--- OUTSIDE RECORDS SUMMARY | 2025-03-02 23:20 | XMS_ITS | Encounter Summary ---
Author Organization [employer] Address [address] [place] [address] Care Team Providers Care Wine Maker Name Role Phone Gt Novak MD Primary Care Provider [phone] Encounter Details Date Type Department Care Team [...] worry about transportation for future doctor visits, roll picker medication, etc.? 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
--- OUTSIDE RECORDS SUMMARY | 2025-03-02 23:20 | XMS_ITS | Encounter Summary ---
Author Organization [facility] Address [address] [place] [address] Care Team Providers Care Grape Picker Name Role Phone Inocente Siomara Kody MERRITT Primary Care Provider [phone] Encounter Details Date Type Department Care Team (Late st Contact Info) Description 07/28/2007 Emergency [facility] Emergency Department [address] [place] [address] Ed, Physician NO ADDRESS ON FILE Erickson Vazquez DO [address] [place], [place] [id number] Social History Tobacco Use Types Packs/Day Years Used Date Smoking Tobacco: Never Assessed Sex and Gender Information Value Date Recorded Sex Assigned at Not on file 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 Gender Identity Not on file Sexual Orientation Not on file documented as of this encounter Plan of Treatment Not on file documented as of this encounter Procedures Procedure Name Priority Date/Time Associated Diagnosis Comments STREP PLATE CULTURE Stat 07/28/2007 8 :45 AM CDT RAPID STREP SCREEN WITH REFLEX CULTURE Stat 07/28/2007 8:45 AM CDT documented in this encounter Results * STREP PLATE CULTURE (07/28/2007 8:45 AM CDT) FINAL REPORT Moderate isolation Gram positive cocci , Identified as: Beta Streptococcus, group C Susceptibility not routinely performed Normal upper respiratory sailaja present INTERFACE SYSTEM SPECIMEN FROM THROAT / Unknown 07/28/2007 8:45 AM CDT 07/28/2007 8:50 AM CDT Erickson Vazquez DO MICROBIOLOGY - GENERAL ORDERABLES Final Result Performing Organization Address City/[facility]/ZIP Co de Phone Number INTERFACE SYSTEM Refer to clinic/hospital department * RAPID STREP SCREEN WITH REFLEX CULTURE (07/28/2007 8:45 AM CDT) RAPID STREP SCREEN WITH REFLEX CULTURE Negative Negative [facility] Specimen from throat (specimen) 07/28/2007 8:45 AM CDT 07/28/2007 8:50 AM CDT Erickson Vazquez DO MICROBIOLOGY - GENERAL ORDERABLES Final Result Performing Organization Address City/[facility] Co de Phone Number [facility] CLIA# [id number] [facility] [place] [place] [address] documented in this encounter Visit Diagnoses Not on filedocumented in this encounter Care Teams Grape Picker Relationship Specialty Start Date End Date Siomara Brower FNP [address] [place] [phone] PCP - General Nurse Practitioner Family 11/18/19 documented as of this encounter
--- OUTSIDE RECORDS SUMMARY | 2025-03-02 23:20 | XMS_ITS | Encounter Summary ---
Author Organization [facility] Address [address] [place] [address] Care Team Providers Care Nurses Superintendent Name Role Phone Siomara Brower Primary Care Provider [phone] Encounter Details Date Type Department Care Team (Late st Contact Info) Description 07/03/2007 Emergency [facility] Emergency Department [address] 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
--- OUTSIDE RECORDS SUMMARY | 2025-03-02 23:21 | XMS_ITS | Data Portability ---
Author Organization SAFIA [facility], Asif [facility] Address [address] [address] Care Team Providers Care News Content Specialist Name Role Phone SIOMARA BROWER Primary Care Provider Unavailable Porter Sample Case [phone] Assessment Encounter Date Assessment Date Assessment LastModified by Organization Details LastModified Time 08/14/2022 08/14/2022 heat stretching massage prn ibuprofen will limit work activity to less looking up, no lifting over the patient reports he is undergoing no ongoing treatment for any spinal issue. I have asked he sign a release for any recent records regarding treatment for his past cervical spinal injury and surgery. no lifting over 20 lbs, no tisting or extension of the neck beyond occasional less than 15 minutes at a time or more than 30 minutes in a day. [email or web address] Not available 08/14/2022 11:36:48 09/29/2022 09/29/2022 heat and massage for the neck d/c pt for now continue current work restrictions if loss of sensation or decrease in strength or clumsiness or increasing pain f/u right away [email or web address] Not available 09/29/2022 11:47:41 Plan of Treatment Reminders Order Date Submit Date Provider Last Modified By Organization Details Last Modified Time Details Appointments None recorded. Lab rapid strep group A, throat 2023 024 TARIQ [facility] ([facility]), [address] [place], [address], 19:07:44 Referral pain management referral 2022 023 asurface Not available 3 16:05:40 Procedures None recorded. Surgeries None recorded. Imaging MRI, cervical spine, w/o contrast 2022 023 asurface [facility] (Scheduling Orders), [address] [place], [address], 3 15:11:50 XR, cervical spine - 5 view WITH flexion and extension views 2022 023 [email or web address] 2 [facility] ([facility]), [address] [place], [address], 3 13:00:48 XR, cervical spine, 2 or 3 view - flexion/ext ension views 2022 023 [email or web address] Not available 3 20:06:11 Medication Orders None recorded. Patient TargetsNo targets recorded. Patient Instructions Encounter Date Encounter Id Patient Instructions Last Modified By Organization Details Last Modified Time 08/14/2022 [id number] physical therapy* TARIQ Not availab le 08/25/2022 15:46:36 Reason for Referral Pain Management Referral for Cervical radiculopathy Referring Physician: Thomas Flaherty, Family Medicine, Encounter Date: 09/29/2022 Results Created Date Observation Date Name Description Value Unit Range Abnormal Flag Note LastModifiedBy Organization Detail LastModifiedTime 07/09/19 24 07/09/2023 rapid strep group A, throa t Strep negati ve Not Available [facility] ([facility]) [address] [place], [address], 07/09/2023 18:13:40 08/16/19 23 08/14/2022 XR, cervi nette spine , 2 or 3 view No observ ation record ed. [email or web address] [facility] [address], [address], 09/29/2022 11:57:50 Result Notes None recorded. Problems Name Problem SNOMED Code Status Onset Date Resolution Date Notes Provider Name and Address Organization Details Recorded Time History of polyp of colon 793376365 Active 2020 HISTORY OF COLON POLYPS; 08/31/19 5:08PM by Garrett Allen, Office Visit; Promoted ; acuity set as *; Not Available [facility] 3 03:16:12 Migraine 39618125 Active 2020 MIGRAINE ; 08/31/19 21 5:08PM by Garrett Allen, Office Visit; Promoted ; acuity set as *; Not Available [facility] 3 03:16:12 Spurling sign 93263355 Active 2022 Thomas Flaherty MD [address] [place] [address], [address] [place] [address] , [facility] 3 11:57:05 Cervical radiculopat hy 24681094 Active 2022 Thomas Flaherty MD [address] [place] [address], [address] [place] [address] , [facility] 3 11:57:07 Tension-typ e headache 353188787 Active 2022 Thomas Flaherty MD [address] [place] [address], [address] [place] [address] , [facility] 3 11:57:09 Problem Notes None recorded. Medical Equipment None Reported. Allergies Allergen ID Allergen Name Allergen Category Reaction Reaction Severity Criticality Documentation Date Start Date Code Code System Note Provider Name and Address Organization Details Recorded Time 421 acetamino phen / hydrocodo ne medicatio n vomiting Not available Not available 08/14/2022 87966 2 RxNorm Kaur Osborn [facility] 3 10:49:07 Medications Name Sig Start Date Stop Date Status Note LastModified by Organization Details LastModified Time ibuprofen 800 mg tablet TAKE 1 TABLET BY MOUTH EVERY 8 HOURS NEEDED FOR PAIN 08/14 completed Not Available Not Available Not Available sumatript an 100 mg tablet 08/14 completed Not Available Not Available Not Available acyclovir 400 mg tablet TAKE 1 TABLET BY MOUTH EVERY DAY NEED TO SEEE DOCTOR 08/14 completed Not Available Not Available Not Available tramadol 50 mg tablet TAKE 1 TABLET BY MOUTH EVERY 8 HOURS FOR 5 DAYS NEEDED FOR PAIN. RADHA ZHENG IS THE SUPERVIS ING DOCTOR. 08/14 completed Not Available Not Available Not Available oxycodone -acetamin ophen 5 mg-325 mg tablet 08/14 completed Not Available Not Available Not Available methylpre dnisolone 4 mg tablets in a dose pack Take as directed on package for 6 days 08/14 completed Not Available Not Available Not Available oxycodone as needed 07/08 completed 0; Recorded 08/31/19 5:08PM by Garrett Allen, Office Visit; Not Available Not Available Not Available Imitrex as needed active 0; Recorded 08/31/19 5:08PM by Garrett Allen, Office Visit; Not Available Not Available Not Available ibuprofen as needed active 0; Recorded 08/31/19 5:08PM by Garrett Allen, Office Visit; Not Available Not Available Not Available Januvia 50 mg tablet TAKE ONE TABLET BY MOUTH EVERY DAY active Not Available Not Available No t Available levocetir izine 5 mg tablet 08/14 completed Not Available Not Available Not Available Vitals Date Recorded Body height Body mass index (BMI) Body weight Oxygen saturation Heart rate Respiratory rate Body temperature Systolic And Diastolic Provider Name and Address Organization Details Last Updated DateTime 4 180.34 cm 26.7 kg/m2 67685.8 4 g 96 % 88 /min 16 /min 98.4 [degF] 132/84 mm[Hg] Nii Peck [facility] 4 17:55:11 Date Recorded Body weight Body mass index (BMI) Body height Body temperature Oxygen saturation Heart rate Systolic And Diastolic Provider Name and Address Organization Details Last Updated DateTime 3 51106.1 4 g 26.6 kg/m2 180.34 cm 97.3 [degF] 95 % 89 /min 128/78 mm[Hg] Kaur Osborn [facility] 3 10:52:10 Date Recorded Body height Body mass index (BMI) Body weight Body temperature Heart rate Oxygen saturation Systolic And Diastolic Provider Name and Address Organization Details Last Updated DateTime 3 180.34 cm 25.8 kg/m2 50695.5 9 g 97.1 [degF] 80 /min 98 % 130/78 mm[Hg] Kaur Osborn [facility], CecilyLVaishaliCVaishali 3 11:04:47 Social History Question Answer Notes LastModified by Organizat ion Details LastModified Time Tobacco Smoking Status Former Smoker Nii Peck josselin [facility] 07/09/2023 17:51:04 When Did You Quit Smoking? 11-15yearssi dick calvillo [email or web address] Information not available 07/09/2023 How Many Years Have You Smoked Tobacco? 10 [email or web address] Information not available 07/09/2023 Sex: Unknown Functional Status None recorded. Mental Status None recorded. Family History Nothing Reported. Medical History No medical history recorded. Immunizations Vaccine Type Date Status Note Provider Nam e and Address Organization Details Recorded Time Tdap 08/30/2020 completed Not Available [facility] 09/30/2022 02:47:52 Tdap 06/29/2017 completed Kaur schwab [facility] 08/14/2022 10:39:54 Tdap 07/04/2014 completed Kaur schwab [facility] 08/14/2022 10:39:54 Hep B, adult 05/06/2018 completed Kaur schwab [facility] 08/14/2022 10:39:54 Hep B, adult 08/29/2017 completed Kaur schwab [facility] 08/14/2022 10:39:54 Hep B, high-dosage, dialysis or IC 06/29/2017 jonna schwab [facility] L.LVaishaliCVa[facility]ali 08/14/2022 10:39:54 Past Encounters Encounter ID Performer Location Encounter Start Date Encounter Closed Date Diagnosis/Indication Diagnosis SNOMED-CT Code Diagnosis ICD10 Code Diagnosis IMO Codes Diagnosis Note [id number] Thomas Flaherty MD [facility] ([facility]) [address] [place] [address] 08/14/2022 10:13:31 08/14/2022 20:06:11 Tension-type headache 763544312 G44.209 Neck pain 88452893 M54.2 [id number] Thomas Flaherty MD [facility] ([facility]) [address] [place] [address] 09/29/2022 10:42:49 09/29/2022 16:15:31 Tension-type headache 172020021 G44.209 Neck pain 69537478 M54.2 Accident w [employer] engaged in work-related activity 76117436 X58.XXXD Cervical radiculopathy 33139920 M54.12 Spurling sign 75646250 R 29.777 [id number] SHAINA WAHL [facility] ([facility]) [address] [place] [address] 07/09/2023 17:42:39 07/09/2023 18:38:42 Sore throat 876126480 J02.9 Strep negative Acute uppe r respiratory infection 89971886 J06.9 Patient presented with symptoms of upper respirator y infection. Advised to drink plenty of fluids, run a cool-mist humidifier in room at night, gargle salt water for sore throat, and get plenty of rest. Patient should avoid over-exert ion and reduce exposure to irritants such as smoke, cold, dry air, and dust. Treatment currently involves symptomati c relief. Patient may take acetaminop hen or ibuprofen as directed to reduce fever and body aches. Antihistam ine and decongesta nt usage was discussed and recommenda tions made. Patient understood these instructio ns and will follow up in the office in 10 days to 2 weeks if symptoms not improving. Health Concerns Section Related Observation LastModified by Organization Detai ls LastModified Time None Recorded Concern Status LastModified by Organization Details LastModified Time None Recorded Advance Directives Directive None Recorded Payers Insurance Date Sequence Insurance Name Policy Number Policy Salguero Covered Member ID Salguero Member ID Guarantor Name 03/02/2025 1 [facility] [id number] Louie Fisher [id number] Louie Lacey Phillip 08/14/2022 PAULA [id number] Dg Louie Lacey Phillip 08/14/2022 BLANCHE Fisher Notes Date Note Type Note Provider Name and Address Organization Details Recorded Time 023 text/ht ml HeadacheReported by PatientHPIFor quality, patient reportsachinganddull(when laying down it shoots to the top of his head). For context, patient reportsrelated to trauma (was hit in the head with a crossmember to metal racking ; was hit in the back of the head. was seen in the er day of injury). For associated symptoms, patient reportsdizziness (was very dizzy when he first got hit and then felt like i was on a cloud that following week)andnosebleeds (twice, but likely sinus-related)but reportsno nausea,no vomiting,no confusion, andno slurred speech. For location, patient reportsoccipital (radiates up to the top of his neck from the base of the skull). For severity, patient reportsmoderateandpain level 2/10. For duration, patient reportsconstant (since 05/31/22 when he got hit in the head.). For onset/timing, patient reportsstill present. For alleviating factors, patient reportsotc medication (advil).there has been no change in his condition recently to precipitate this office visit. he reports that he has continued headaches at the base of the occiput and right lutheran. this is a pressure sensation. currently it is a 2/10. in the last two weeks it has been a max 4/10. it is a little more sore when i look up. ROS as noted in the HPI This patient is here for a worker's comp appt following a head injury he sustained at work on 05/31/[address] [employer] [address] [address]Wiqnrtkoj Department NoteSignedPatient: Markus Fisherhen MMR#: [id number]: 1975Acct#:[id number]/Se x: 47 / MADM Date: 05/31/22Loc: ERRoom/Bed:Attending Dr:Report Number: [id number] - Head InjuryGeneral: Chief complaint: Head InjuryStated complaint: states contusion to back of headTime Seen by Provider: 05/31/22 14:12Source: patientMode of arrival: ambulatoryLimitations: no limitationsHistory of Present Illness: Patient comes to our emergency department today because of head trauma. 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 He states he did not suffer loss of consciousness but saw stars and was propelled forward when struck. He states that since that time he has had neck pain mild headache and funny feeling in the right side of his head. He states it hurts to move his head and neck to the left and right. Prior history of cervical fusion done at [facility] in approximately 2010. He is unsure if he had a cervical herniated disc or exactly what pathology was but he states he was told he needed a cervical fusion at that time. No other injuries or complaints at this time. No nausea, vomiting, change in vision, numbness and tingling of his extremities no weakness.Mechanism of Injury: work related injuryPlace: workLoss of Consciousness: noLocation of injury: occipitalAssociated symptoms: Reports neck pain and tingling;Deny nausea, syncope, vertigo or vomitingReview of SystemsConst: Denies: fever(s)Eyes: Denies: change in visionENMT: Denies: throat pain or odynophagiaCard: Denies: chest pain, syncope or pre-syncopeResp: Denies: dyspnea, productive cough or non-productive coughGI: Denies: nausea or vomitingMusc: Reports: neck pain;Denies: back pain, extremity pain or extremity swellingSkin/Breast: Denies: rashNeuro: Reports: headache(s);Denies: numbness in extremities, weakness in extremities, dizziness, vertigo, Slurred speech present or seizure-like activityPFSH EDPFSH: Medical History Hx of cancer of lungHyperlipidemiaMigrainesShingle s outbreakType 2 diabetes mellitus without complicationSurgical History H/O neck surgeryHistory of [id number] of hip surgeryHistory of lumbosacral spine surgeryHistory of lung surgeryHistory of repair of ACLHx of shoulder surgeryFamily History GrandmotherStrokeDementiaHyperl ipidemiaGrandfatherDiabetesMotherH yperlipidemiaOtherCancerDenies family history ofCAD (coronary artery disease)Chronic kidney disease (CKD)Anesthesia complicationBleeding disorderLung diseaseHypertensionSocial History Smoking and tobacco status: former smokerQuit status (tobacco): has quit using tobacco Year quit tobacco: 2011 1PPD x 6 YearsAlcohol intake: neverLives independently: YesHousehold members: spouse and childrenCurrent occupational status: employedCurrent gender identity: MalePhysical ExamNarrative: EXAM NARRATIVE:Alert makes good eye contact speech is goal-directed. Appears to be in no acute distressConst: COMMON NORMALS: no acute distress, average body habitus, patient oriented x3, healthy appearing and alert GENERAL APPEARANCE: cooperativeHENMT: COMMON NORMALS: normocephalic HEAD & SCALP: normocephalicHEAD IMAGES:document embedded image1. Area of tenderness to palpation no step-off. No skin wounds, ecchymosis etc.FACE & SINUS: normal facial exam and face symmetricEye: COMMON NORMALS: Equal, round and reactive pupils present, EOMs intact bilaterally and conjunctivae normal CONJUNCTIVA: Yes conjunctivae normal PUPIL: Yes Equal, round and reactive pupils presentNeck/C-Spine: CERVICAL SPINE: Yes cervical ROM abnormal rotation to the left decreased, rotation to the right decreased and anterior flexion decreased, No step off deformity, Yes Paracervical muscle tenderness right>left, Yes Paracervical spasm right and Yes Trapezius muscle tendernessResp: COMMON NORMALS: normal respiratory effort, No use of accessory muscles and clear to auscultation bilaterally EFFORT & INSPECTION: Yes able to speak in complete sentences AUSCULTATION: clear to auscultation bilaterallyCardio: COMMON NORMALS: regular rate, regular rhythm and Peripheral pulses 2+ throughout RATE: regular rate RHYTHM: regular rhythm PERIPHERAL PULSES: Peripheral pulses 2+ throughoutBack/Pelvis: COMMON NORMALS: thoracic and lumbar spine normal to inspection and no thoracic nor lumbar tendernessExtremity: COMMON NORMALS: normal to inspection, full ROM and capillary refill normalNeuro: COMMON NORMALS: patient oriented x3, moves all extremities and no focal motor deficits SENSORIUM/ORIENTATION: Yes alert CRANIAL NERVES: Yes CN normal except as notedCourseVital Signs: Vital signs:Vital SignsTemperature 97.8 F 05/31/22 12:53Pulse Rate 75 05/31/22 15:30Respiratory Rate 14 05/31/22 15:30Blood Pressure 141/84 05/31/22 15:30Pulse Oximetry 97 05/31/22 15:30Oxygen Delivery Method 05/31/22 15:30MDM - Head InjuryMedcial Decision MakingThis patient presented to our emergency department because of occupational related closed head injury. He was struck by a metal bar in the back of his head and neck. There was no associated loss of consciousness but is wound up presenting to the emergency department because of concerns about that injury. Prior history of cervical fusion. No focal findings noted on his clinical examination.Imaging was obtained to ensure no evidence of skull fracture, intracranial hemorrhage, cervical spine fracture etc. Those images were reassuring and repeat examinations did not find any ongoing concerning symptoms.Current presentation is consistent with closed head injury with associated cervical spasm. He is being discharged to outpatient care with symptomatic treatment with ice acetaminophen and resuming activities as tolerated. Also discussed return precautions both he and his work supervisors.Lab DataI reviewed the patient's lab results.Radiology ImpressionsCervical Spine CT 05/31/22 14:21IMPRESSION:No evidence of acute fracture or dislocation.Head CT 05/31/22 14:21IMPRESSION:1. No evidence of intracranial hemorrhage or mass effect.2. No acute intracranial findings.Discharge PlanDischargePatient Disposition: HomeClinical Impression:Closed head injuryCondition: StablePrescriptions:No Action(DME) blood-glucose meter [Blood Glucose Monitoring] KitSee Rx Instructions .ROUTE .MEDSUPPLY Qty: 1 0RFRx Instructions:As directed(DME) blood sugar diagnostic StripSee Rx Instructions .ROUTE .MEDSUPPLY Qty: 100 1RFRx Instructions:As directedcyclobenzaprine 10 mg [id number] mg PO TID PRN (Reason: muscle spasm) Qty: 60 0RFibuprofen 800 mg [id number] mg PO Q8H PRN (Reason: pain) Qty: 30 0RFlevocetirizine [Xyzal] 5 mg tablet5 mg PO DAILY Qty: 30 1RFJanuvia 50 mg tabletSee Rx Instructions .ROUTE .COMPLEX Qty: 90 1RFDose Instruction:TAKE 1 TABLET BY MOUTH EVERY DAYRx Instructions:TAKE 1 TABLET BY MOUTH EVERY DAYsumatriptan succinate [Imitrex] 100 mg tabletSee Rx Instructions PO .COMPLEX Qty: 10 1RFRx Instructions:take 1 tab at onset of headache; if no relief may repeat 1 tab in 2hr; max = 2 tabs/24 hrs POacyclovir 400 mg [id number] mg PO DAILY Qty: 30 0RFDischarge Orders:Discharge ED (Routine); Ordered 05/31/22Ordered By: Quintin ParkerReferrals:Siomara Brower FNP [Primary Care Provider] -Discharge Diet: Usual dietDischarge Activity: Increase activity as toleratedPatient Instructions: Opioid Safety, Pain ManagementActivity Restrictions/Additional Instructions:As we discussed your CT scans obtained today did not reveal any evidence of a serious injury. With head and injuries you may have some persistent mild headache, difficulty with concentration etc. these are usually temporary symptoms and may not affect you at all. Should you develop increasing pain, weakness numbness repetitive vomiting etc. return to this or the nearest emergency department for reevaluation. You may resume your normal activities as you feel better. You may use Tylenol for pain and use ice pack to your neck and head for any discomfort.CodingLevel of Care CodeED Hatchery Attendant for Chg FwdDictated By:Quintin Parker DOSigned By: Signed Date/Time:05/31/22 1649DD/ 1423 Thomas Flaherty MD [address] [place] [address], [phone], [facility] 08/14/2022 11:37:33 023 text/ht ml HeadacheReported by PatientHPIFor quality, patient reportsachinganddull(when laying down it shoots to the top of his head). For context, patient reportsrelated to trauma (was hit in the head with a crossmember to metal racking ; was hit in the back of the head. was seen in the er day of injury). For associated symptoms, patient reportsdizziness (now resolved)andnosebleeds (resolved)but reportsno nausea,no vomiting,no confusion, andno slurred speech. For location, patient reportsoccipital (pt states pain goes down into his shoulder blades). For severity, patient reportsmoderateandpain level 3/10. For duration, patient reportsconstant (since 05/31/22 when he got hit in the head. headaches are consistent but pain gets better and worse at times). For onset/timing, patient reportsstill present. For alleviating factors, patient reportsotc medication (advil).there has been no change in his condition recently to precipitate this office visit. His pain is currently at a 3/10, and has been a max 4/10.ROS as noted in the HPI Interval history:He reports a recent rooster comb injection of his knee this week but no spinal procedures or other pain injections this year. this is his rooster 2nd comb injection. he reports a shooting pain in his neck and arm when he does his PT exercises. thus he was instructed to follow up to further discuss treatment. the pain shoots to the left and right scapulahe also has developed some pain in the left 4th and fifth fingers and up to the elbow along the c8 nerve distribution. thi does not extend above the elbow. This patient is here for a worker's comp appt following a head injury he sustained at work on 05/31/22 Thomas Flaherty MD [address] [place] [address], [phone], [facility] 10/10/2022 16:55:30 024 text/ht ml CoughReported by PatientHPIFor severity, patient reportsworseningbut reportsmoderate. For associated symptoms, patient reportschills,nausea, anddifficulty swallowing. For quality, patient reportsdry. For duration, patient reportsintermittent(began 2 days ago). For onset/timing, patient reportssudden. For context, patient reportsnon-smoker.ROS as noted in the HPI Pt has had sinus congestion, dry cough, ear pain and chills for 2 days now. Took 3x 200mg Ibuprofen SHAINA WAHL [address] [place], [address], [facility], Asif 07/10/2023 08:10:42
--- OUTSIDE RECORDS SUMMARY | 2025-03-02 23:21 | XMS_ITS | Encounter Summary ---
Author Organization [facility] Address [address] [place] [address] Care Team Providers Care Instructor Ballroom Dancing Name Role Phone Siomara Brower Primary Care Provider Reason for Referral * Radiology Services (Routine) - Closed Specialty Diagnoses / Procedures Referred By Contac t Referred To Contact Radiology Diagnoses Left wrist pain Scapho-lunate dissociation, left Procedures XR FLUORO NEEDLE PLACEMENT Cole Mabry MD Phone: tel: fax: [facility] [address] [place] [phone] Phone: tel: fax: Referral ID Status Reason Start Date Expiration Date Visits Re quested Visits Authorized [id number] Closed 01/01/2020 01/31/2021 1 1 Encounter Details Date Type Department Care Team (Latest Contact Info) Description 01/01/2020 Ancillary Orders [facility] Orthopedics - Orthopedic [facility] [address] [place] [address] Cole Mabry MD [address] [place] [address] Left wrist pain; Scapho-lunate dissociation, left Social History Tobacco Use Types Packs/Day Years Used Date Smoking Tobacco: Former Smokeless Tobacco: Former Chew Alcohol Use Standard Drinks/Week Comments Never 0 (1 standard drink = 0.6 oz pur e alcohol) Seldom Sex and Gender Information Value Date Recorded Sex Assigned at Not on file Legal Sex Male 6:57 AM [employer]ISS[employer]ED [employer] Gender Identity Not on file Sexual Orientation Not on file Occupation Industry Job Start Date Job End Date Not on file Not on file Not on file Not on file COVID-19 Exposure Response Date Recorded In the last month, have you been in contact with someone who was confirmed or suspected to have Coronavirus / COVID-19? No / Unsure 01/01/2020 11:47 AM CDT documented as of this encounter Plan of Treatment Not on file documented as of this encounter Results * XR FLUORO NEEDLE PLACEMENT (01/01/2020 2:48 PM CDT) Anatomical Region Laterality Modality Computed Radiogr aphy 01/01/2020 2:51 PM CDT Impressions 01/01/2020 3:52 PM CDT IMPRESSION: Please see below. Exam: XR FLUORO NEEDLE PLACEMENT Date/Time of Exam: 01/01/2020 2:48 PM Reason For Exam: See Diagnosis. Diagnosis: Left wrist pain; Scapho-lunate dissociation, left. Consent: Following detailed discussion in regards to this procedure as well as its potential complications and risks with the patient, a written consent was obtained from the patient. Procedure in Detail: The patient was placed in a supine position on the exam table with the left wrist flexed slightly, and fluoroscopy was utilized to select the preferred level of joint injection. The area was marked, prepped, and draped in the usual sterile fashion, and local anesthesia was achieved with 1% lidocaine overlying the proposed needle course. Under fluoroscopic guidance, a 22-gauge 1.5 inch hypodermic needle was advanced into the radioscaphoid joint, and a small amount of contrast was injected to verify intracapsular placement. This was followed with the complete bolus of 2 ml of a combination of Isovue, gadolinium, lidocaine and normal saline with good flow of contrast noted into the joint capsule. The needle was withdrawn, the Betadine cleansed from the skin, and a sterile dressing placed. Routine overhead films were obtained at that time prior to transferring the patient to the MRI department for further imaging studies in stable and comfortable condition, having tolerated the procedure well. Performed by: Dameon Borden DNP, HORTENCIA, SHAINA-ADA Narrative Procedure Note Bacilio Pearce, DO - 01/01/2020 IMPRESSION: Please see below. Exam: XR FLUORO NEEDLE PLACEMENT Date/Time of Exam: 01/01/2020 2:48 PM Reason For Exam: See Diagnosis. Diagnosis: Left wrist pain; Scapho-lunate dissociation, left. Consent: Following detailed discussion in regards to this procedure as well as its potential complications and risks with the patient, a written consent was obtained from the patient. Procedure in Detail: The patient was placed in a supine position on the exam table with the left wrist flexed slightly, and fluoroscopy was utilized to select the preferred level of joint injection. The area was marked, prepped, and draped in the usual sterile fashion, and local anesthesia was achieved with 1% lidocaine overlying the proposed needle course. Under fluoroscopic guidance, a 22-gauge 1.5 inch hypodermic needle was advanced into the radioscaphoid joint, and a small amount of contrast was injected to verify intracapsular placement. This was followed with the complete bolus of 2 ml of a combination of Isovue, gadolinium, lidocaine and normal saline with good flow of contrast noted into the joint capsule. The needle was withdrawn, the Betadine cleansed from the skin, and a sterile dressing placed. Routine overhead films were obtained at that time prior to transferring the patient to the MRI department for further imaging studies in stable and comfortable condition, having tolerated the procedure well. Performed by: Dameon Borden DNP, HORTENCIA, TEXTILE ENGRAVER-BC Cole Mabry MD DIAGNOSTIC IMAGING ORDERABLES Final Result * XR WRIST 2 VW LEFT (01/01/2020 2:48 PM CDT) Anatomical Region Laterality Modality Wrist / Hand Computed Radiogr aphy 01/01/2020 2:48 PM CDT Impressions 01/01/2020 2:56 PM CDT IMPRESSION: Status post wrist arthrography. Please refer to the cross-sectional arthrography report for further details. Narrative 01/01/2020 2:56 PM CDT Exam: XR WRIST 2 VW LEFT Date/Time of Exam: 01/01/2020 2:48 PM Reason For Exam: See Diagnosis. Diagnosis: Left wrist pain; Scapho-lunate dissociation, left. Comparison: None. Findings: Images were obtained confirming intra-articular injection of contrast into the radiocarpal compartment. Procedure Note Bacilio Pearce, DO - 01/01/2020 Exam: XR WRIST 2 VW LEFT Date/Time of Exam: 01/01/2020 2:48 PM Reason For Exam: See Diagnosis. Diagnosis: Left wrist pain; Scapho-lunate dissociation, left. Comparison: None. Findings: Images were obtained confirming intra-articular injection of contrast into the radiocarpal compartment. IMPRESSION: Status post wrist arthrography. Please refer to the cross-sectional arthrography report for further details. Cole Mabry MD DIAGNOSTIC IMAGING ORDERABLES Final Result documented in this encounter Visit Diagnoses Diagnosis Left wrist pain Pain in joint, forearm Scapho-lunate dissociation, left Left wrist pain Pain in joint, forearm Scapho-lunate dissociation, left Left wrist pain Pain in joint, forearm Scapho-lunate dissociation, left documented in this encounter Care Teams Instructor Ballroom Dancing Relationship Specialty Start Date End Date Siomara Brower FNP [address] [place] [phone] PCP - General Nurse Practitioner Family 11/18/19 documented as of this encounter
--- OUTSIDE RECORDS SUMMARY | 2025-03-02 23:21 | XMS_ITS | Patient Health Record ---
Author Organization [facility] Address [address] [place] [address] Care Team Providers Care Agricultural Scientist Name Role Phone Siomara Savage Primary Care Provider Obi redding Kyree Sanford Unavailable [phone] Bacilio Grant Unavailable [phone] [place] Hutchinson Unavailable [phone] Allergies Allergen (clinical drug ingredient) Drug/Non Drug Allergy documented on EMR Reaction Allergy Type Onset Date Status Vicodin nausea and vomiting Drug Allergy Active Results Component Value Reference Range Flag Notes MRI UE JT w/ + w/o Cont LT-7 1033 Reviewed date:09/24/2024 11:27:40 AM Interpretation: Performing Lab: Notes/Report: [id number]=iSite Arthrogram Shoulder Left-730 40 Reviewed date:09/24/2024 11:26:32 AM Interpretation: Performing Lab: Notes/Report: See Below For Report Arthrogram Shoulder Left Diagnosis Description: Other instability, left shoulder Read See Below For Report Schedule Confirmation Reviewed date:09/18/2024 07:48:31 AM Interpretation: Performing Lab: Notes/Report: MRI UE JT w/o Cont LT Schedule Confirmation Reviewed date:09/18/2024 07:48:26 AM Interpretation: Performing Lab: Notes/Report: MRI UE JT w/ + w/o Cont LT Schedule Confirmation Reviewed date:09/18/2024 07:48:17 AM Interpretation: Performing Lab: Notes/Report: MRI UE JT w/ + w/o Cont LT Pre-Procedure Blood Glucose Test - [id number] Reviewed date:04/24/2024 03:13:16 PM Interpretation:230 Performing Lab: Notes/Report: 230 Schedule Confirmation Reviewed date:09/03/2024 11:07:12 AM Interpretation: Performing Lab: Notes/Report: MRI UE JT w/o Cont LT Schedule Confirmation Reviewed date:08/28/2024 10:26:23 AM Interpretation: Performing Lab: Notes/Report: Arthrogram Shoulder Left Arthrogram Shoulder Left-730 40 Reviewed date:09/18/2024 07:48:45 AM Interpretation: Performing Lab: Notes/Report: [email or web address]=[id number]=iSite MRI UE JT w/ + w/o Cont LT-7 3223 Reviewed date:09/24/2024 11:26:21 AM Interpretation: Performing Lab: Notes/Report: See Below For Report MRI UE JT w/ + w/o Cont Diagnosis Description: Other instability, left shoulder Read See Below For Report Schedule Confirmation Reviewed date:09/18/2024 07:48:02 AM Interpretation: Performing Lab: Notes/Report: MRI UE JT w/ + w/o Cont LT Schedule Confirmation Reviewed date:09/18/2024 07:47:46 AM Interpretation: Performing Lab: Notes/Report: Arthrogram Shoulder Left [id number] 28158 Reviewed date:11/28/2024 11:10:15 AM Interpretation: Performing Lab: Notes/Report: [id number] 135 NA WBG was per formed at [facility] under CLIA# [id number]. POCT-WBG Performed By Codie ESPINO US Surgery Unlisted Reviewed date:11/24/2024 03:45:47 PM Interpretation: Performing Lab: Notes/Report: This procedure was dictated and transcribed outside of the [employer] system. The results may be found in the patient's physical chart. FINAL REPORT Read This procedure was dictated and transcribed outside of the [employer] system. The results may be found in the patient's physical chart. zzzUrine Drug Screen (confir mation by instrument) - 21542 Reviewed date:03/18/2024 03:29:46 PM Interpretation: Performing Lab: Notes/Report: Fluoro Needle For Placement - Spine 94442 Reviewed date:04/24/2024 03:13:26 PM Interpretation: Performing Lab: Notes/Report: Basic Metabolic Panel (BMP) 76268 Reviewed date:11/19/2024 08:54:22 AM Interpretation: Performing Lab: Notes/Report: Presurgical Testing: Diagnosis: Diabetes Sodium 140 136-145 MMOL/L Potassium 4.2 3.5-5.1 MMOL/L Chloride 103 98-107 MMOL/L CO2 27.8 20.0-31.0 MMOL/L Glucose Serum 126 71-110 MG/DL HI Testing p erformed at [facility], [address] [place] [address] [address] [place] [address]. CLIA ID#: [id number] BUN 15 7-21 MG/DL Creat .94 .57-1.17 MG/DL M-wlzwky-l-benzoquino ne imine (NAPQI) is a metabolite of acetaminophen, NAPQI concentrations of apparoximately 10 mg/L correlation to toxic levels of acetaminophen demonstrates a greater than or equil to 10% change in results. NAPQI concentrations greater than this may lead to falsely depressed results for patient samples. Use of this assay is not recommended for patients undergoing treatment with phenindione, due to the potential for falsely depressed results. GFR 99.9 NA Calculation pe rformed from GFR calculator provided by the [employer]. Glomerular Filtration rate(GRF) is the best overall index of kidney function. Normal GFR varies according to age,sex, body size, and declines with age. The [employer] recommends using the CKD-EPI Creatinine Equation(2020) to estimate GFR. Anion Gap 13 5-15 BUN/Creat Ratio 16.0 12.0-20.0 % Calcium 9.6 8.7-10.4 MG/DL Osmo Serum,Calculated 292 280-300 MOSM/KG Reason For Referral No Information Medications Medication SIG (Take, Route, Frequency, Duration) Notes Start Date End Date Status Shilpa Not-Taking tiZANidine HCl 4 MG Tablet 1 tablet as needed Orally at bedtime; Duration: 30 days Fill on 01/22/2025 01/22/2025 Active Celecoxib 200 MG Capsule 1 capsule as needed Orally Once a day; Duration: 30 days 02/13/2025 Active Social History Tobacco Use: Social History Observation Description Date Details (start date - stop date) Never Smoker NA - NA Sex Assigned At : Social History Observation Description Sex Assigned At Male Social History Tobacco Use: Social Info Question Answer Notes Tobacco Control (Standard) Tobacco use: Nonsmoker Additional Details Category Social Info Options Details Drugs/Alcohol: Do you drink alcohol? No Problems Problem Type SNOMED Code ICD Code Onset Dates Problem Status W/U Status Risk Notes Problem Chronic pain syndrome (553606667) Chronic pain syndrome (G89.4) Active confirmed Problem Cervical radiculopathy (70361246) Cervical radiculopathy (M54.12) Active confirmed Problem Osteoarthritis of knee (430520408) Primary osteoarthritis of right knee (M17.11) Active confirmed Problem Localized, primary osteoarthritis of the shoulder region (600222248) Primary osteoarthritis of left shoulder (M19.012) Active confirmed Problem Lumbar radiculopathy (473082852) Lumbar radiculopathy (M54.16) Active confirmed Problem Cervical disc disorder with radiculopathy (701752748) Cervical disc disorder with radiculopathy (M50.10) Active confirmed Problem Abnormal gait (34002155) Abnormality of gait and mobility (R26.9) Active confirmed Problem Post-laminectomy syndrome (92019179) Failed back syndrome, cervical (M96.1) Active confirmed Vital Signs Heart Rate 87 /min 02/13/2025 Blood pressure diastolic 78 mm Hg 02/13/2025 Oximetry 97 % 02/13/2025 Height-cm 180.34 cm 02/13/2025 Weight-kg 79.38 kg 02/13/2025 Height 71 in 02/13/2025 Blood pressure systolic 116 mm Hg 02/13/2025 Weight 175 lbs 02/13/2025 BMI 24.4 kg/m2 02/13/2025 Procedures Procedure Date Ordered Date Performed Result Body Sit e Epidural, Cervical/ Thoracic , w/ imaging guidance - 71411 04/24/2024 04/24/2024 N/A Epidural, Lumbar/Sacral (Cau stuart), w/ imaging guidance - 58743 05/13/2024 05/13/2024 N/A Epidural, Cervical/ Thoracic , w/ imaging guidance - 29965 08/14/2024 08/14/2024 N/A Encounters Encounter Location Date Provider Diagnosis [facility] [address] [address] 08/14/2024 Bacilio Grant Cervical radiculopathy M54.12 [facility] [address] [place] [address] 05/13/2024 Bacilio Grant Lumbar radiculopathy M54.16 [facility] [place] [address] [place] [address] 09/03/2024 Bcailio Grant Chronic pain syndrom e G89.4 ; Cervical disc disorder with radiculopathy M50.10 ; Lumbar radiculopathy M54.16 ; Failed back syndrome, cervical M96.1 ; Abnormality of gait and mobility R26.9 and Analgesic use Z79.899 [facility] [address] [place] [address] 08/01/2024 Sanford Adorno Primary osteoarthritis of right knee M17.11 and Instability of left shoulder joint M25.312 [facility] [place] [address] [place] [address] 06/18/2024 Bacilio Rudy Chronic pain syndrom e G89.4 ; Cervical disc disorder with radiculopathy M50.10 ; Lumbar radiculopathy M54.16 ; Failed back syndrome, cervical M96.1 ; Abnormality of gait and mobility R26.9 and Analgesic use Z79.899 [facility] [address] [place] [address] 05/09/2024 Sanford Adorno Chondromalacia, righ t knee M94.261 [facility] [place] [address] [place] [address] 01/22/2025 [place] Hutchinson Chronic pain syndrom e G89.4 ; Cervical disc disorder with radiculopathy M50.10 ; Lumbar radiculopathy M54.16 ; Failed back syndrome, cervical M96.1 ; Analgesic use Z79.899 and Abnormality of gait and mobility R26.9 [facility] [place] [address] [place] [address] 11/13/2024 [place] Hutchinson Chronic pain syndrom e G89.4 ; Cervical disc disorder with radiculopathy M50.10 ; Lumbar radiculopathy M54.16 ; Failed back syndrome, cervical M96.1 ; Abnormality of gait and mobility R26.9 and Analgesic use Z79.899 [facility] [address] [place] [address] 02/13/2025 Sanford Adorno Primary osteoarthritis of left shoulder M19.012 [facility] [address] [place] [address] 11/27/2024 Sanford Adorno Status post arthroscopy of left shoulder Z98.890 [facility] [address] [place] [address] 04/24/2024 Bacilio Grant Failed neck syndrome M96.1 and Cervical disc disorder with radiculopathy M50.10 [facility] [address] [place] [address] 09/26/2024 Sanford Adorno Traumatic complete tear of left rotator cuff, subsequent encounter S46.012D and Encounter for preoperative examination for general surgical procedure Z01.818 [facility] [place] [address] [place] [address] 03/12/2024 Bacilio Grant Chronic pain syndrom e G89.4 ; Cervical disc disorder with radiculopathy M50.10 ; Lumbar radiculopathy M54.16 ; Failed back syndrome, cervical M96.1 ; Abnormality of gait and mobility R26.9 and Analgesic use Z79.899 [facility] [address] [place] [address] 11/19/2024 Sanford Adorno [facility] [address] [place] [address] 09/16/2024 Sanford Adorno Instability of left shoulder joint M25.312 [facility] [address] [place] [address] 08/28/2024 Sanford Adorno [facility] [address] [place] [address], [place] [address] 08/27/2024 [facility] [address] [place] [address] 08/27/2024 [facility] [place] [address] [place] [address] 05/07/2024 Bacilio Grant Lumbar radiculopathy M54.16 Assessments Encounter Date Diagnosis (ICD Code) Assessment Notes Treatment Notes Treatment Clinical Notes Section Notes 06/18/2024 Chronic pain syndrome (ICD-10 - G89.4) I had a nice visit with the patient today regarding his chronic pain issues. He is very pleased with the relief from the lumbar epidural steroid injection and is getting around much better. He does say that the cervical pain has worsened a bit and he is interested in repeating the cervical epidural as soon as possible. 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 Schedule NOY 01/22/2025 Chronic pain syndrome (ICD-10 - G89.4) I had a nice discussion with the patient today regarding his chronic pain complaints. He continues with neck and lower back pain and states his pain has worsened some lately after he slid from his truck on gravel. He states his neck pain has been worse lately as well as his radicular symptoms. He is done well with NOY's in the past noting greater than 50% relief for greater than 3 months. After discussion he would like to proceed with a Episodic NOY C7-T1. He does report that he has also been having muscle spasms as well. After discussion we will trial him on tizanidine 4 mg nightly. Hopefully after his procedure he may be able to come off of this again.He does state that he did have a shoulder surgery over a month and a half ago and states all they did was remove an anchor that they stated was in the wrong place. He states this has not improved his shoulder pain at all. He has a follow-up next month with Ortho. He denies any other changes in his health since we last seen him. I did discuss lifestyle modifications. He will return to clinic after procedure to monitor for treatment effectiveness. The patient continues with chronic pain requiring treatment to help restore function and improve quality of life. Patient is advised that best long-term goals include increased activity, core strengthening, proper weight management, coping strategies, avoidance of painful triggers, and targeted interventional therapy. We will see the patient for routine follow up in accordance with all clinic policies. We will continue to stress nonopioid treatment. 01/22/2025 Cervical disc disorder with radiculopathy (ICD-10 - M50.10) RECOMMEND THERAPEUTIC CERVICAL EPIDURAL STEROID INJECTION, levels C7-T1 The patient reports overall 50% improvement in function and decrease in pain for greater than one month from previous diagnostic MARICRUZ. The patient also reports improvement in tolerance to activities which generally cause pain. Based on the results of previous diagnostic MARICRUZ, a therapeutic MARICRUZ is recommended. Expectation from a successful therapeutic epidural steroid injection is at least 50-70% relief of pain from baseline and evidence of improved function for at least six to eight weeks after delivery. The goal of epidural steroid injections is to reduce pain and inflammation, restoring range of motion and, thereby, facilitating progress in more active treatment programs, and avoiding surgery. The procedure and risks were discussed with the patient including but not limited to infection, bleeding, neurological complications, side effects from medications, no change in pain, worsening of pain, or even . We also discussed conservative options, surgical options, and medical management with patient as well. The patient indicates understanding and wishes to proceed with the recommended treatment approach. The patient was given written information about the procedure and all questions were answered. 02/13/2025 Primary osteoarthritis of left shoulder (ICD-10 - M19.012) Individual is still having some discomfort in his left shoulder. I am sure it is related to the degenerative changes I noted at his arthroscopy when I removed the loose suture anchor. I have gone over this with him. My recommendation is to go ahead and start him on some anti-inflammatory medicine to see if it will help. He is not taking any blood thinners and has no allergies towards this is I can see. Celebrex 200 mg daily. Recheck in 2 months. 11/27/2024 Status post arthroscopy of left shoulder (ICD-10 - Z98.890) Sutures are removed. This patient wants to return to work regular duty and I see no reason why he cannot. We allow him to return to work regular duty. Do home exercises recheck in 6 weeks. 11/13/2024 Chronic pain syndrome (ICD-10 - G89.4) I had a nice discussion with the patient today regarding his chronic pain complaints. He continues with neck and lower back pain. He states his pain in his neck and lower back have been returning. He has done well with NOY's and LESI's in the past but states he will need to hold off on this for now. He reports he will be having shoulder surgery very soon with Dr. Adorno to repair his torn labrum. He does report that he also needs another neck surgery but is trying to hold off on that as long as possible. He denies any other changes since we last seen him or any untoward side effects of medication. I did review his most recent imaging today. I did discuss lifestyle modifications with him. He will return to clinic in 2 months to monitor for treatment effectiveness as well as to continue to discuss periodic use of interventional procedures as needed for acute exacerbation of pain. The patient continues with chronic pain requiring treatment to help restore function and improve quality of life. Patient is advised that best long-term goals include increased activity, core strengthening, proper weight management, coping strategies, avoidance of painful triggers, and targeted interventional therapy. We will see the patient for routine follow up in accordance with all clinic policies. We will continue to stress nonopioid treatment. 09/03/2024 Chronic pain syndrome (ICD-10 - G89.4) I had a nice visit with the patient today regarding his chronic pain issues. He's very pleased with the relief from his most recent LESI. Overall, it's doing much better. He does have some mid-thoracic pain, but he's not interested in pursuing imaging or treatment for that. At this point, I recommend just massages and chiropractics, as there is a significant chance that this is more myofascial. We will continue to monitor him, and we will see him back in a couple of months. 08/14/2024 Cervical radiculopathy (ICD-10 - M54.12) 08/01/2024 Primary osteoarthritis of right knee (ICD-10 - M17.11) Individual's right knee pain early arthritis is under excellent control at this time. We will forego a viscosupplementation injection. I will recheck this on an as-needed basis. His anterior cruciate ligament reconstruction is quite stable. 08/01/2024 Instability of left shoulder joint (ICD-10 - M25.312) This individual has definite instability of his left shoulder. I would like to obtain records from his treating surgeon in [place]. I would like to know what procedure he did. We will get a release of information at this time. Furthermore I am going to order an MRI arthrogram of his left shoulder because this man definitely has instability of his left shoulder. 05/13/2024 Lumbar radiculopathy (ICD-10 - M54.16) 05/09/2024 Chondromalacia, right knee (ICD-10 - M94.261) This individual has really done well with his last viscosupplementation injection. This was in October of last year. So at this point we are approximately 7 months out. I would recommend rechecking in 2 months. I suspect it would be time for an injection at that time. 05/07/2024 Lumbar radiculopathy (ICD-10 - M54.16) RECOMMEND THERAPEUTIC LUMBAR EPIDURAL STEROID INJECTION, levels L5-S1 The patient reports overall 50% improvement in function and decrease in pain for greater than one month from previous diagnostic MARICRUZ. The patient also reports improvement in tolerance to activities which generally cause pain. Based on the results of previous diagnostic MARICRUZ, a therapeutic MARICRUZ is recommended. Expectation from a successful therapeutic epidural steroid injection is at least 50-70% relief of pain from baseline and evidence of improved function for at least six to eight weeks after delivery. The goal of epidural steroid injections is to reduce pain and inflammation, restoring range of motion and, thereby, facilitating progress in more active treatment programs, and avoiding surgery. The procedure and risks were discussed with the patient including but not limited to infection, bleeding, neurological complications, side effects from medications, no change in pain, worsening of pain, or even . We also discussed conservative options, surgical options, and medical management with patient as well. The patient indicates understanding and wishes to proceed with the recommended treatment approach. The patient was given written information about the procedure and all questions were answered. 04/24/2024 Failed neck syndrome (ICD-10 - M96.1) 03/12/2024 Chronic pain syndrome (ICD-10 - G89.4) I had a nice visit with the patient today regarding his chronic pain issues. Certainly this is a complicated situation in a pleasant gentleman who has multiple chronic pain issues. We will defer the management of his orthopedic issues to the orthopedists and focus on his cervical and lumbar issues. He has symptoms consistent with cervical post-laminectomy syndrome with adjacent segment disease. We did review his cervical X-rays and he does have radicular symptoms so it does seem reasonable to consider a cervical epidural steroid injection. We will get this scheduled in the near future. With regard to his lumbar spine, he has a couple of different disc bulges mainly at the L4-5 and L5-S1 levels with some impact on the left sided nerves consistent with his left sided radicular symptoms. He has responded well to lumbar epidural steroid injections in the past so we will get one of these scheduled in the near future as well. We will follow up after the procedures and proceed accordingly. Schedule NOY Schedule LESI RECOMMEND THERAPEUTIC LUMBAR EPIDURAL STEROID INJECTION, levels L5-S1 The patient reports overall 50% improvement in function and decrease in pain for greater than one month from previous diagnostic MARICRUZ. The patient also reports improvement in tolerance to activities which generally cause pain. Based on the results of previous diagnostic MARICRUZ, a therapeutic MARICRUZ is recommended. Expectation from a successful therapeutic epidural steroid injection is at least 50-70% relief of pain from baseline and evidence of improved function for at least six to eight weeks after delivery. The goal of epidural steroid injections is to reduce pain and inflammation, restoring range of motion and, thereby, facilitating progress in more active treatment programs, and avoiding surgery. The procedure and risks were discussed with the patient including but not limited to infection, bleeding, neurological complications, side effects from medications, no change in pain, worsening of pain, or even . We also discussed conservative options, surgical options, and medical management with patient as well. The patient indicates understanding and wishes to proceed with the recommended treatment approach. The patient was given written information about the procedure and all questions were answered. RECOMMEND THERAPEUTIC CERVICAL EPIDURAL STEROID INJECTION, levels C7-T1 The patient reports overall 50% improvement in function and decrease in pain for greater than one month from previous diagnostic MARICRUZ. The patient also reports improvement in tolerance to activities which generally cause pain. Based on the results of previous diagnostic MARICRUZ, a therapeutic MARICRUZ is recommended. Expectation from a successful therapeutic epidural steroid injection is at least 50-70% relief of pain from baseline and evidence of improved function for at least six to eight weeks after delivery. The goal of epidural steroid injections is to reduce pain and inflammation, restoring range of motion and, thereby, facilitating progress in more active treatment programs, and avoiding surgery. The procedure and risks were discussed with the patient including but not limited to infection, bleeding, neurological complications, side effects from medications, no change in pain, worsening of pain, or even . We also discussed conservative options, surgical options, and medical management with patient as well. The patient indicates understanding and wishes to proceed with the recommended treatment approach. The patient was given written information about the procedure and all questions were answered. 03/12/2024 Cervical disc disorder with radiculopathy (ICD-10 - M50.10) 09/26/2024 Traumatic complete tear of left rotator cuff, subsequent encounter (ICD-10 - S46.012D) This individual is still having problems with shoulder pain related to a Worker's Compensation injury which has been settled. He had surgery 3 years ago in [place], [place]. I have reviewed the operative note which included basically a mild intra-articular debridement. No definitive stabilization procedure was performed. At that time it was noted the patient had mild degenerative changes of the glenohumeral joint. At this time because of continued pain I think it is important to consider repeat arthroscopy of the left shoulder including assessment of the rotator cuff. I told him he does have some degenerative changes he acknowledges this as well. The need to wear a brace for up to 6 weeks after surgery is explained to the patient as well. 09/16/2024 Instability of left shoulder joint (ICD-10 - M25.312) 09/26/2024 Encounter for preoperative examination for general surgical procedure (ICD-10 - Z01.818) 03/12/2024 Lumbar radiculopathy (ICD-10 - M54.16) 09/03/2024 Cervical disc disorder with radiculopathy (ICD-10 - M50.10) 04/24/2024 Cervical disc disorder with radiculopathy (ICD-10 - M50.10) 11/13/2024 Cervical disc disorder with radiculopathy (ICD-10 - M50.10) 01/22/2025 Lumbar radiculopathy (ICD-10 - M54.16) 06/18/2024 Cervical disc disorder with radiculopathy (ICD-10 - M50.10) RECOMMEND THERAPEUTIC CERVICAL EPIDURAL STEROID INJECTION, levels C7-T1 The patient reports overall 50% improvement in function and decrease in pain for greater than one month from previous diagnostic MARICRUZ. The patient also reports improvement in tolerance to activities which generally cause pain. Based on the results of previous diagnostic MARICRUZ, a therapeutic MARICRUZ is recommended. Expectation from a successful therapeutic epidural steroid injection is at least 50-70% relief of pain from baseline and evidence of improved function for at least six to eight weeks after delivery. The goal of epidural steroid injections is to reduce pain and inflammation, restoring range of motion and, thereby, facilitating progress in more active treatment programs, and avoiding surgery. The procedure and risks were discussed with the patient including but not limited to infection, bleeding, neurological complications, side effects from medications, no change in pain, worsening of pain, or even . We also discussed conservative options, surgical options, and medical management with patient as well. The patient indicates understanding and wishes to proceed with the recommended treatment approach. The patient was given written information about the procedure and all questions were answered. 06/18/2024 Lumbar radiculopathy (ICD-10 - M54.16) 11/13/2024 Lumbar radiculopathy (ICD-10 - M54.16) 09/03/2024 Lumbar radiculopathy (ICD-10 - M54.16) 01/22/2025 Failed back syndrome, cervical (ICD-10 - M96.1) 03/12/2024 Failed back syndrome, cervical (ICD-10 - M96.1) 03/12/2024 Abnormality of gait and mobility (ICD-10 - R26.9) 09/03/2024 Failed back syndrome, cervical (ICD-10 - M96.1) 11/13/2024 Failed back syndrome, cervical (ICD-10 - M96.1) 06/18/2024 Failed back syndrome, cervical (ICD-10 - M96.1) 01/22/2025 Analgesic use (ICD-10 - Z79.899) 11/13/2024 Abnormality of gait and mobility (ICD-10 - R26.9) 06/18/2024 Abnormality of gait and mobility (ICD-10 - R26.9) 01/22/2025 Abnormality of gait and mobility (ICD-10 - R26.9) 09/03/2024 Abnormality of gait and mobility (ICD-10 - R26.9) 03/12/2024 Analgesic use (ICD-10 - Z79.899) 09/03/2024 Analgesic use (ICD-10 - Z79.899) 06/18/2024 Analgesic use (ICD-10 - Z79.899) 11/13/2024 Analgesic use (ICD-10 - Z79.899) 03/12/2024 Other Erickson Garica, gilson scribing for Bacilio Grant. IBacilio, personally performed the services described in this documentatio n, as scribed by Erickson Crespo, and it is both accurate and complete. 06/18/2024 Other Erickson Garcia am scribing for Dr. Bacilio Grant. I, Dr. Bacilio Grant, personally performed the services described in this documentation, as scribed by Erickson Crespo, and it is both accurate and complete. 09/03/2024 Other Radha, LUANNE Broderick, am scribing for Dr. Bacilio Grant. I, Dr. Bacilio Grant, personally performed the services described in this documentation, as scribed by LUANNE Broderick, and it is both accurate and complete. Plan Of Treatment Pending Test Test Name Order Date Basic Metabolic Panel (BMP) 42817 2024 CBC w\ Manual Diff 70726, 24168 09/27/19 25 Chest PA/Lat-[id number] 09/26/2024 Electrocardiogram 12 Lead Tracing (EKG)- [id number] 09/26/2024 Future Test Test Name Order Date Epidural, Cervical/ Thoracic, w/ imaging guidance - [id number] 01/23/2025 Next Appt Details Provider Name:Bacilio Grant, 03/12/2025 01:20:00 PM, [address] [facility], [place], [address], Provider Name:Sanford Adorno, 04/10/2025 08:30:00 AM, [address] [place], [address], Insurance Providers Payer Name Payer Address Payer Phone Subscriber Number Group Number Insured Name Patient Relationship to Insured Coverage Start Date Coverage End Date [facility] [employer] [address] [address] [place] [address] [id number] DIRK JARAMILLO Self - patient is the insured Medications Administered Medication Instructions Date of Administration Dosage Notes Durolane 10/26/2023 3 mL Medical (General) History Medical History History ICD Code Diabetes Cancer Arthritis migraine headaches Surgical History Surgery Date(Month/Year) Right Hip Sx neck fusion Left Shoulder Sx two times Left wrist/hand Sx Removal of Right lower lung and lymphnoi ds from chest left shoulder arthroscopy 11/19/2024
--- OUTSIDE RECORDS SUMMARY | 2025-03-02 23:21 | XMS_ITS | Encounter Summary ---
Author Organization [facility] Address [address] [place] [address] Care Team Providers Care Reinsurance Analyst Name Role Phone Florina Browerly Kody MERRITT Primary Care Provider Encounter Details Date Type Department Care Team (Latest Contact Info) Description 01/01/2020 Ancillary Orders [facility] Orthopedics - Orthopedic [facility] [address] [place] [address] Cole Mabry MD [address] [place] [phone] Left wrist pain; Scapho-lunate dissociation, left Social History Tobacco Use Types Packs/Day Years Used Date Smoking Tobacco: Former Smokeless Tobacco: Former Chew Alcohol Use Standard Drinks/Week Comments Never 0 (1 standard drink = 0.6 oz pur e alcohol) Seldom Sex and Gender Information Value Date Recorded Sex Assigned at Not on file Legal Sex Male 6:57 AM [employer] Gender Identity Not on file Sexual Orientation [...] as of this encounter Results * XR WRIST 2 VW LEFT (01/01/2020 1:09 PM CDT) Anatomical Region Laterality Modality Wrist / Hand Computed Radiogr aphy 01/01/2020 1:09 PM CDT Impressions 01/01/2020 1:58 PM CDT IMPRESSION: Status post wrist arthrography. Please refer to the cross-sectional arthrography report for further details. [id number] Narrative 01/01/2020 1:58 PM CDT Exam: XR WRIST 2 VW LEFT Date/Time of Exam: 01/01/2020 1:09 PM Reason For Exam: See Diagnosis. Diagnosis: Left wrist pain; Scapho-lunate dissociation, left. Comparison: 12/09/2019. Findings: Images were obtained confirming intra-articular injection of contrast into the radiocarpal compartment. Procedure Note Bacilio Pearce, DO - 01/01/2020 Exam: XR WRIST 2 VW LEFT Date/Time of Exam: 01/01/2020 1:09 PM Reason For Exam: See Diagnosis. Diagnosis: Left wrist pain; Scapho-lunate dissociation, left. Comparison: 12/09/2019. Findings: Images were obtained confirming intra-articular injection of contrast into the radiocarpal compartment. IMPRESSION: Status post wrist arthrography. Please refer to the cross-sectional arthrography report for further details. [id number] Cole Mabry MD DIAGNOSTIC IMAGING ORDERABLES Final Result documented in this encounter Visit Diagnoses Diagnosis Left wrist pain Pain in joint, forearm Scapho-lunate dissociation, left Left wrist pain Pain in joint, forearm Scapho-lunate dissociation, left documented in this encounter Care Teams Reinsurance Analyst Relationship Specialty Start Date End Date Siomara Brower FNP [address] [place] [phone] PCP - General Nurse Practitioner Family 11/18/19 documented as of this encounter
--- OUTSIDE RECORDS SUMMARY | 2025-03-02 23:21 | XMS_ITS | Clinical Summary ---
Author Organization [facility] Address [address] [facility] [address] [place] [address] Phone Care Team Providers Care Metal Door Assembler Name Role Phone [place] cleary Kody [facility] Primary Care Provider Allergies Active Allergy Reactions Criticality Noted Date Comments Hydrocodone-Acetaminophen Nausea and Vomiting Low 0 10/20/2012 Hydrocodone-Acetaminophen Nausea and Vomiting High 0 05/26/2013 Medications metFORMIN (GLUCOPHAGE) 1,000 mg tablet Take 1,000 mg by mouth 2 times daily with meals. Active acyclovir (ZOVIRAX) 400 mg tablet Take 400 mg by mouth 2 times daily. Active oxyCODONE-acetam inophen (Percocet) 5-325 mg tabletIndication s:Scapholunate dissociation, unspecified laterality Take 1 Tablet by mouth every 4 hours as needed for Pain, Moderate. 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 Gender Identity Not on file Sexual Orientation Not on file Occupation Industry Job Start Date Job End Date Not on file Not on file Not on file Not on file Last Filed Vital Signs Vital Sign Reading Time Taken Comments Blood Pressure 113/67 06/24/2020 11:42 AM CDT Pulse 83 05/06/2020 11:05 AM COMPUTER LABORATORY TECHNICIAN Temperature 36.6 C (97.8 F) 02/04/2020 2:30 PM COMPUTER LABORATORY TECHNICIAN Respiratory Rate 14 02/04/2020 3:00 PM COMPUTER LABORATORY TECHNICIAN Oxygen Saturation 92% 02/04/2020 3:00 PM COMPUTER LABORATORY TECHNICIAN Inhaled Oxygen Concentration - - Weight 90.3 kg (199 lb) 06/24/2020 11:42 AM CDT Height 180.3 cm (5' 11 ) 06/24/2020 11:42 AM CDT Body Mass Index 27.75 06/24/2020 11:42 AM CDT Plan of Treatment Health Maintenance Due Date Last Done Comments HEPATITIS B VACCINES (1 of 3 - 19+ 3-dose series) 04/06 COLORECTAL SCREENING 06/13/2018 06/13/2013 Colorectal Cancer Screening 06/13/2018 FIT-DNA Q 3 years 2022 FIT/FOBT Q 1 year 2022 Flex Sig/CT Colonography Q 5 years 2022 DTAP/TDAP/TD VACCINES (2 - Td or Tdap) 07/04/2024 INFLUENZA VACCINE (#1) 2024 Medical Devices Implanted Type Area Link Knitting Machine Operator Device Identifier Shelf Expiration Date Model / Serial / Lot [place] Suture 3.5x8.5mm Dx Swiveloc Xl Fe [id number] - Sna Implanted:Qty: 1 on 02/04/2020 by May Clemens MD at [facility] [place] Left: Wrist [employer] 06/03/2023 AR-8978P / NA / [id number] Hand/Wrist Internal Brace Sys Ar-8978-[id number] - Sna Implanted:Qty: 1 on 02/04/2020 by May Clemens MD at [facility] [place] Left: Wrist [employer] 04/04/2024 AR-8978-CP / NA / [id number] [place] Suture 3.5x8.5mm Dx Swiveloc Xl Fe [id number]-[id number] - [id number] Implanted:Qty: 1 on 02/04/2020 by May Clemens MD at [facility] Left: Wrist [employer] 07/02/2024 AR-8978P / / [id number] Wire K Trocar Dbl .[id number] - Sna Implanted:Qty: 1 on 02/04/2020 by May Clemens MD at [facility] Wire Left: Wrist [employer] 06/05/2024 [id number] 2S / NA / [id number] Explanted Type Area Link Knitting Machine Operator Device Identifier Shelf Expiration Date Model / Serial / Lot [place] Suture 3.5x8.5mm Dx Swiveloc Xl Fe [id number] - Sna Explanted:Qty: 1 on 02/04/2020 by May Clemens MD at [facility] [place] Left: Wrist [employer] 06/03/2023 AR-8978P / NA / [id number] Wire K Trocar Dbl .[id number] - Sna Explanted:Qty: 1 on 02/04/2020 by May Clemens MD at [facility] Wire Left: Wrist [employer] 06/05/2024 [id number] 2S / NA / [id number] Wire K Trocar Dbl .[id number] - Sna Explanted:Qty: 2 on 02/04/2020 by May Clemens MD at [facility] Wire Left: Wrist [employer] [facility] 07/24/2024 [id number] / NA / [id number] Insurance [facility] [employer] Care Teams Metal Door Assembler Relationship Specialty Start Date End Date Siomara Brower FNP [address] [place] [phone] PCP - General Nurse Practitioner Family 11/18/19
[2025-03-02 23:35] VITALS: BP 130/82; PULSE 93; RESP 16; TEMP 36.6; O2SAT 98; BMI 24.4
--- NOTE | 2025-03-02 23:44 | XRR_ITS ---
PROCEDURE INFORMATION: Exam: XR Chest Exam date and time: 03/02/2025 11:57 PM Age: 49 years old Clinical indication: Cough and shortness of breath; Prior surgery; Surgery date: 6+ months; Surgery type: Right lower lobe, lymph nodes, c-spine, shoulder; Additional info: Short of breath TECHNIQUE: Imaging protocol: Radiologic exam of the chest. Views: 1 view. COMPARISON: CR XR chest 2V* [id number] 05/09/2019 4:00 PM FINDINGS: Lungs: Unremarkable. No consolidation. Pleural spaces: Unremarkable. No pleural effusion. No pneumothorax. Heart/Mediastinum: Unremarkable. No cardiomegaly. Bones/joints: Post surgical changes of cervical spine. Mild degenerative changes of the AC joints. XR/XR chest 1V portable [id number] IMPRESSION: No definite acute infiltrate or effusion.
--- NOTE | 2025-03-03 00:46 | W.ED.URI ---
HPI - URI/Sore Throat General: Chief Complaint: Upper Respiratory Infection Stated Complaint: Coughing, sinus issues, Body aches Time Seen by Provider: 03/02/25 23:32 History of Present Illness: Patient is a 49-year-old gentleman that reports to the emergency room due to sore throat, cough, congestion, headache. Context: Patient stated 5 days ago he had the upper respiratory symptoms with a sore throat, cough. The sputum changed to brown production 2 days ago. He has not had fevers through this. He has a history of pneumonia every 1-2 years that is similar to current symptoms. No chest pain. No nausea, no vomiting. He is a non-smoker. Associated symptoms: Deny abdominal pain, chills, chest pain, fever(s), headache(s), nasal congestion, nausea or vomiting Related Data Previous Rx's ?Medication ?Instructions ?Recorded fluticasone propionate 50 2 spray intranasal BID allergy 02/04/24 mcg/actuation nasal symptoms #16 grams spray,suspension (Flonase Allergy Relief) methocarbamol 500 mg tablet 500 mg PO BID #60 tabs 02/04/24 naproxen 500 mg tablet 500 mg PO BID #60 tabs 02/04/24 sumatriptan succinate 100 mg See Rx Instructions PO .COMPLEX 03/14/24 tablet (Imitrex) #10 tabs blood sugar diagnostic #100 ea 06/26/24 blood-glucose meter (Blood Glucose #1 ea 06/26/24 Monitoring kit) flash glucose scanning reader #1 ea 07/02/24 (FreeStyle Juan 2 [place]) acyclovir 400 mg tablet 400 mg PO DAILY #30 tabs 07/23/24 semaglutide 0.25 mg or 0.5 mg (2 0.5 mg (0.736 mL) SUBCUT .weekly 12/11/24 mg/3 mL) subcutaneous pen injector #3 mL (OzGoAlbert) flash glucose sensor (FreeStyle #1 kit 01/07/25 Juan 2 Sensor kit) azithromycin 500 mg tablet See Rx Instructions PO .COMPLEX #6 03/03/25 tabs methylprednisolone 4 mg tablets in See Rx Instructions PO .COMPLEX 03/03/25 a dose pack (Medrol (Watson)) #21 ea Allergies Allergy/AdvReac Type Severity Reaction Status Date / Time acetaminophen (From Vicodin) AdvReac Intermediate ADR-Vomitin Verified 03/02/25 23:39 g hydrocodone (From Vicodin) AdvReac Intermediate ADR-Vomitin Verified 03/02/25 23:39 g Review of Systems General: Reports: 10 or more systems reviewed and unremarkable except in HPI and below Const: Denies: fever(s) or chills Eyes: Denies: change in vision or blurry vision ENMT: Denies: throat pain, mouth pain or nasal congestion Card: Denies: chest pain, palpitations, irregular heart rhythm, swelling of feet/ankles or dyspnea on exertion Resp: Reports: dyspnea and productive cough; Denies: wheezing GI: Denies: abdominal pain, nausea or vomiting : Denies: flank pain, difficulty urinating or nocturia Musc: Denies: neck pain or back pain Neuro: Denies: headache(s) or numbness in extremities Psych: Denies: anxiety or depression Endo: Denies: polyuria or polydipsia PFSH ED PFSH: Medical History (Updated 03/03/25 @ 00:53 by TABITHA Munoz) 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 Hyperlipidemia Shingles outbreak Type 2 diabetes mellitus without complication Migraines Hx of cancer of lung Surgical History History of colonoscopy 2012 Hx of shoulder surgery H/O neck surgery History of hip surgery History of lung surgery History of repair of ACL History of lumbosacral spine surgery Family History Grandmother Stroke Dementia Hyperlipidemia Grandfather Diabetes Mother Hyperlipidemia Other Cancer Denies family history of CAD (coronary artery disease) Chronic kidney disease (CKD) Anesthesia complication Bleeding disorder Lung disease Hypertension Social History Smoking and tobacco/nicotine status: former use of tobacco/nicotine Quit status (tobacco/nicotine): has quit using Year quit tobacco: 2011 - 1PPD x 6 Years Alcohol intake: never Substance/Drug Use: never Lives independently: Yes Household members: spouse and children Current occupational status: employed Do you think of yourself as: Straight/Heterosexual Current gender identity: Male Audra/Sikh: Congregational Physical Exam Const: COMMON NORMALS: no acute distress, average body habitus, patient oriented x3, no limitations, healthy appearing, alert and well nourished GENERAL APPEARANCE: cooperative HENMT: COMMON NORMALS: normocephalic and atraumatic HEAD & SCALP: normocephalic and atraumatic Lymph: LYMPHATIC: no lymphadenopathy noted Chest: COMMONS NORMALS: normal inspection of the chest and normal palpation of entire chest wall Resp: COMMON NORMALS: normal respiratory effort, No retractions and No use of accessory muscles EFFORT & INSPECTION: No tachypneic and No respiratory distress AUSCULTATION: wheezes (right upper lobe) and bronchovesicular breath sounds on the right (upper lobe) GI: COMMON NORMALS: Normal to inspection, nondistended, normoactive bowel sounds present, Soft to palpation, non-tender and No hepatosplenomegaly present INSPECTION: Yes normal to inspection AUSCULTATION: Yes normoactive bowel sounds PALPATION: Yes Soft to palpation and Yes No hepatosplenomegaly present : COMMON NORMALS: Yes no CVA tenderness BLADDER/KIDNEY EXAM: Yes no CVA tenderness Back/Pelvis: COMMON NORMALS: no CVA tenderness and thoracic and lumbar spine normal to inspection Extremity: COMMON NORMALS: normal to inspection, full ROM and capillary refill normal Neuro: COMMON NORMALS: patient oriented x3 SENSORIUM/ORIENTATION: Yes alert Psych: COMMON NORMALS: mental status grossly normal, Normal thought process present and cooperative THOUGHT PROCESS: Normal thought process present Course Vital Signs: Vital signs: Vital Signs Temperature 97.9 F 03/02/25 23:35 Pulse Rate 93 03/02/25 23:35 Respiratory Rate 16 03/02/25 23:35 Blood Pressure 130/82 03/02/25 23:35 Pulse Oximetry 98 03/02/25 23:35 Oxygen Delivery Me thod Room Air 03/02/25 23:35 MDM - URI/Sore Throat Medical Decision Making Patient is a 49-year-old gentleman that presents to the ED due to upper respiratory symptoms, shortness of breath, and now sputum change. He does have some bronchial breath sounds. I do hear this mainly in the right upper lobe, consistent with the central congestion noted on chest x-ray. Reading is pending. I will treat as secondary infectious, give azithromycin, and dexamethasone given the slight amount of wheezes. I discussed the respiratory panel with the patient. I will let him go home, and will call him tomorrow with these results since the time well labs will be greater than 3 hours. Patient states understanding and is happy with this plan of care. I updated patient's on results. Patient was aware. I also welcomed them to call back if they had any questions to go over. Medical Records I reviewed the patient's medical records. Lab Data I reviewed the patient's lab results. Radiology Impressions Chest X-Ray 03/02/25 23:44 IMPRESSION: No definite acute infiltrate or effusion. Laboratory Results Adenovirus (PCR) Not detected (NOT DETECT) 03/03/25 00:30 C. pneumoniae DNA (PCR) Not detected (NOT DETECT) 03/03/25 00:30 Coronavirus 229E (PCR) Not detected (NOT DETECT) 03/03/25 00:30 Human Metapneumovir PCR Not detected (NOT DETECT) 03/03/25 00:30 Influenza A (H1) PCR Not detected (NOT DETECT) 03/03/25 00:30 Influ A (H1/09) PCR Not detected (NOT DETECT) 03/03/25 00:30 Influenza A (H3) PCR Not detected (NOT DETECT) 03/03/25 00:30 Influenza Type A (PCR) Not detected (NOT DETECT) 03/03/25 00:30 Influenza Type B (PCR) Not detected (NOT DETECT) 03/03/25 00:30 M. pneumoniae (PCR) Not detected (NOT DETECT) 03/03/25 00:30 Parainfluenza 1 (PCR) Not detected (NOT DETECT) 03/03/25 00:30 Parainfluenza 2 (PCR) Not detected (NOT DETECT) 03/03/25 00:30 Parainfluenza 3 (PCR) Not detected (NOT DETECT) 03/03/25 00:30 Parainfluenza 4 (PCR) Not detected (NOT DETECT) 03/03/25 00:30 RSV Type A (PCR) Not detected (NOT DETECT) 03/03/25 00:30 RSV Type B (PCR) Not detected (NOT DETECT) 03/03/25 00:30 Entero/Rhino (PCR) Detected (NOT DETECT) A 03/03/25 00:30 SARS-CoV-2 (PCR) Not detected (NOT DETECT) 03/03/25 00:30 Group A Strep Rapid Negative (Negative) 03/02/25 23:49 XR interpretation done by ED provider, pending radiology final review ED provider radiology interpretation(s): Central congestion, question of right upper lobe infiltrate Discharge Plan Discharge Patient Disposition: Home Clinical Impression: Pneumonia of right upper lobe due to infectious organism Condition: Stable Prescriptions: New azithromycin 500 mg tablet See Rx Instructions .ROUTE .COMPLEX Qty: 6 0RF Rx Instructions: For 250 mg dose pack: take 500 mg today (day 1), then 250 mg for 4 days (days 2-5) methylprednisolone [Medrol (Watson)] 4 mg tablets,dose pack See Rx Instructions .ROUTE .COMPLEX Qty: 21 0RF Rx Instructions: for 6 days No Action sumatriptan succinate [Imitrex] 100 mg tablet See Rx Instructions PO .COMPLEX Qty: 10 1RF Rx Instructions: take 1 tab at onset of headache; if no relief may repeat 1 tab in 2hr; max = 2 tabs/24 hrs PO methocarbamol 500 mg tablet 500 mg PO BID Qty: 60 0RF naproxen 500 mg tablet 500 mg PO BID Qty: 60 0RF fluticasone propionate [Flonase Allergy Relief] 50 mcg/actuation spray,suspension 2 spray intranasal BID Qty: 16 0RF Rx Instructions: administer into each nostril (DME) blood-glucose meter [Blood Glucose Monitoring] Kit See Rx Instructions .ROUTE .MEDSUPPLY Qty: 1 0RF Rx Instructions: As directed (DME) blood sugar diagnostic Strip See Rx Instructions .ROUTE .MEDSUPPLY Qty: 100 1RF Rx Instructions: As directed (DME) FreeStyle Juan 2 [place] Misc See Rx Instructions .Route Qty: 1 0RF Rx Instructions: As directed acyclovir 400 mg tablet 400 mg PO DAILY Qty: 30 0RF Rx Instructions: needs appt Ozempic 0.25 mg or 0.5 mg (2 mg/3 mL) pen injector 0.5 mg SUBCUT .weekly Qty: 3 2RF (DME) FreeStyle Juan 2 Sensor Kit See Rx Instructions .ROUTE .COMPLEX Qty: 1 5RF Dose Instruction: USE DIRECTED Rx Instructions: USE DIRECTED Discharge Orders: Discharge ED (Routine); Ordered 03/03/25 Ordered By: Keya Powell Referrals: Siomara Brower FNP [Primary Care Provider, Family Practice] Discharge Diet: Usual diet Discharge Activity: Resume usual activity Patient Instructions: Pneumonia (ED), Patient Portal & [place] Instructions Activity Restrictions/Additional Instructions: - Return to the ED with worsening shortness of breath, fever greater than 100.4 --antibiotics at the pharmacy: Azithromycin. Steroids at the pharmacy: Medrol Dosepak Thank you for choosing [facility] for your healthcare needs today. You have been screened and evaluated and felt safe for discharge. Health conditions do change or evolve sometimes and as such it is important that you follow up with your Primary Doctor to be re checked, 3-5 days is a general good time frame for follow up. You are always welcome to return to the ED for re assessment if your symptoms are worsening or you have new concerns Print Language: Angolan Coding Level of Care Code ED Plastic Surgery Technician for Anitha Smith
[2025-03-03 00:49] LABS: Rapid Strep A Test Negative (Negative)
[2025-03-03 02:59] LABS: Coronavirus 229E,HKU1,NL63,OC4 Not Detected (NOT DETECT); Parainfluenza Virus Type 1 Not Detected (NOT DETECT); Parainfluenza Virus Type 2 Not Detected (NOT DETECT); Parainfluenza Virus Type 3 Not Detected (NOT DETECT); Parainfluenza Virus Type 4 Not Detected (NOT DETECT); SARS-COV-2 Not Detected (NOT DETECT)
== END 2025-03-03 01:33 | disposition home or self-care (01) ==
PROVIDERS: Emergency Provider Physician Assistant; PCP Nurse Practitioner Family
DX: J18.9 Pneumonia, unspecified organism (principal); Z11.52 Encounter for screening for COVID-19; Z87.891 Personal history of nicotine dependence; E78.5 Hyperlipidemia, unspecified; E11.9 Type 2 diabetes mellitus without complications; Z85.118 Personal history of other malignant neoplasm of bronchus and lung
CPT/HCPCS: 71045; 87081; 87486; 87581; 87633; 87880; 96372; 99284; J1100; Q0144